=== PATIENT | female | born 1995 | race Two or more races ===

== ENCOUNTER 2025-02-12 10:06 | Emergency (ER) | payer MEDICAID, SELFPAY ==
[2025-02-12 10:07] VITALS: BMI 33.6
[2025-02-12 10:41] VITALS: BP 134/83; PULSE 80; RESP 17; TEMP 36.7; O2SAT 99; BMI 33.6
--- NOTE | 2025-02-12 10:52 | XR_ITS ---
Examination: Complete OB ultrasound, less than 14 weeks, transabdominal Date and time of exam: 02/12/2025, 12:15 PM COMPARISON: None Technique: Obstetrical ultrasound images less than 14 weeks performed via transabdominal imaging Findings: The uterus measures 12.7 x 5.8 x 6.6 cm and is anteverted. Single intrauterine is seen with a crown-rump length 0.5 cm. Normal-appearing gestational and yolk sac. heart rate: 131 bpm. Right ovary is not visualized due to overlying bowel gas. Left ovary appears normal with normal arterial flow. IMPRESSION: Single intrauterine with gestational age = 6 weeks 1 day based on crown rump length. heart rate: 131 weeks per minute. No focal abnormality
--- NOTE | 2025-02-12 10:57 | PD.EDRME ---
Rapid Medical Screening Exam RME Arrival date/time: 02/12/25 10:06 This is a 4 para 0 that comes in with complaints of vaginal bleeding pain. Patient states her last menstrual period was January 16. Patient reports that she is approximately 6 weeks . Patient started having vaginal bleeding. Patient also complains of back pain. Patient reports mild abdominal cramping. I have greeted and performed a focused initial assessment of this patient. Initial appropriate labs ordered at this time. A comprehensive ED assessment and evaluation of the patient and analysis of all test and completion of medical decision making process will be conducted by additional ED provider. Chief Complaint: Vaginal Bleeding Time Seen by Provider: 02/12/25 10:40 Vital signs: Vital Signs Temperature 98.0 F 02/12/25 10:41 Pulse Rate 80 02/12/25 10:41 Respiratory Rate 17 02/12/25 10:41 Blood Pressure 134/83 H 02/12/25 10:41 Pulse Oximetry (%) 99 02/12/25 10:41 Oxygen Delivery Method Room Air 02/12/25 10:41
[2025-02-12 11:39] LABS: Collection Type, Urine Pedi-Bag; Squamous Epithelial Cell,Urine 0 /hpf (0-5)
[2025-02-12 11:52] LABS: Bilirubin,Urine Negative (Negative); Blood,Urine Negative (Negative); Clarity,Urine Clear (Clear/Hazy); Color,Urine Colorless (Lt Yel-Yel); Culture Indicated,Urine Not Indicated; Glucose, Urine Negative (Negative); Ketones,Urine Negative (Negative); Leukocyte Esterase,Urine Negative (Negative); Nitrite,Urine Negative (Negative); Protein,Urine Negative (Neg - Trace); RBC,Urine < 1 /hpf (0-3); Specific Gravity,Urine 1.008 (1.001-1.035); Urobilinogen,Urine Negative mg/dL (0.0-1.0); WBC,Urine < 1 /hpf (0-5)
[2025-02-12 12:01] LABS: Basophils # (Auto) 0.1 Thou/mm3 (0.0-0.2); Basophils % (Auto) 0 % (0-2.5); Eosinophils # (Auto) 0.1 Thou/mm3 (0.0-0.5); Eosinophils % (Auto) 0 % (0-10); Hematocrit 40.8 % (36.0-46.0); Hemoglobin 13.6 g/dL (12.0-16.0); Immature Granulocytes % (Auto) 0 % (0-0); Immature Granulocytes Auto 0.04 Thou/mm3 (0.00-0.00); Lymphocytes # (Auto) 2.8 Thou/mm3 (1.0-4.8); Lymphocytes % (Auto) 20 % (10-50); Mean Corpuscular HGB Conc 33.3 g/dl (31.0-37.0); Mean Corpuscular Volume 87 fL (80-100); Monocytes # (Auto) 0.7 Thou/mm3 (0.0-0.8); Monocytes % (Auto) 5 % (0-12); Neutrophils # (Auto) 10.1 Thou/mm3 (1.8-7.7); Neutrophils % (Auto) 74 % (37-80); Nucleated Red Blood Cell % 0 /100 WBC (0); Platelet Count 284 Thou/mm3 (140-440); RDW Standard Deviation 43.6 fL (36.4-46.3); Red Blood Count 4.69 Miln/mm3 (4.00-5.20); White Blood Count 13.6 Thou/mm3 (3.6-11.0)
[2025-02-12 12:46] LABS: Alanine Aminotransferase 17 U/L (10-49); Albumin/Globulin Ratio 1.7 (1.2-2.2); Alkaline Phosphatase 56 U/L (46-116); Anion Gap 10 (7-16); Aspartate Amino Transferase 15 U/L (0-34); BUN/Creatinine Ratio 9 Ratio (12-20); Bilirubin,Total 0.4 mg/dL (0.3-1.2); Blood Urea Nitrogen 6 mg/dL (9-23); Calcium 9.9 mg/dL (8.3-10.6); Calcium (Corrected) 9.9 mg/dL (8.5-10.1); Carbon Dioxide 24.4 mMol/L (20.0-31.0); Chloride 104 mMol/L (98-107); Creatinine (Component) 0.7 mg/dL (0.6-1.3); Estimated Creatinine Clearance 125.6 mL/min (>60); Glucose 89 mg/dL (74-106); Osmolality,Calculated 272 (275-295); Potassium 3.7 mMol/L (3.4-5.1); Sodium 138 mMol/L (136-145); eGFR > 60 See Note
[2025-02-12 12:55] LABS: Beta HCG,Quantitative 19319 mIU/mL (<5.0)
--- NOTE | 2025-02-12 13:48 | EDNOTE_ITS ---
ED OB Contraction Preg RMI/HPI General Chief complaint: Vaginal Bleeding Stated complaint: AROUND 2MNTHS PREG W/SPOTING Time Seen by Provider: 02/12/25 10:40 Arrival date/time: 02/12/25 10:06 RME / HPI RME / HPI Narrative: 02/12/25 10:06 This is a 4 para 0 that comes in with complaints of vaginal bleeding pain. Patient states her last menstrual period was January 16. Patient reports that she is approximately 6 weeks . Patient started having vaginal bleeding. Patient also complains of back pain. Patient reports mild abdominal cramping. I have greeted and performed a focused initial assessment of this patient. In itial appropriate labs ordered at this time. A comprehensive ED assessment and evaluation of the patient and analysis of all test and completion of medical decision making process will be conducted by additional ED provider. DR. KYLE MAIN ED EVALUATION 29 year old female who is currently ~ 6 weeks gestational age, A3 presents to the ED for evaluation of vaginal spotting beginning yesterday. Accompanied by mild pelvic cramping she states is located most to the center and occasionally to the left side. Reportedly has yet to see OBGYN and has an appt scheduled for later this month. Patient reports she is taking vitamins that contain folic acid. No other associated symptoms or complaints reported. LMP 12/19/2024 Related Data Allergies Allergy/AdvReac Type Severity Reaction Status Date / Time No Known Allergies Allergy Verified 02/12/25 10:10 Review of Systems Review of Systems Narrative Review of Systems: GEN: No fever, no chills, no weight loss EYES: No discharge, no visual changes, no pain HEENT: No ear pain, no congestion, no sore throat PULM: No shortness of breath, no cough, no congestion CV: No chest pain, no dyspnea on exertion, no palpitations GI: No nausea, no vomiting, no diarrhea, + pain, no constipation : +vaginal bleeding. No frequency, no urgency, no dysuria MUSC/SKEL: No joint pain, no back pain SKIN: No rash PSYCH: No hallucinations, no depression HEME/LYMPH: No easy bleeding or bruising tendencies NEURO: No weakness, no headache Past Medical History Social History SMOKING STATUS: Never smoker ED Exam Narrative Physical exam: GENERAL APPEARANCE:? alert and oriented x 4, well-developed, well-nourished, no acute distress HEENT: normocephalic, atraumatic NECK: supple LUNGS: no respiratory distress, normal effort HEART: good peripheral perfusion ABDOMEN: non distended; no tenderness EXTREMITIES:? atraumatic NEUROLOGIC: awake; alert and oriented x4; cranial nerves II-XII grossly intact PSYCHIATRIC:? appropriate mood and affect SKIN: warm, dry, normal color; no rashes Course Quality Measures none Orders Category Date Time Status US OB <= 14 weeks fetus Stat Exams 02/12/25 10:52 Completed ABO/RH Type - Stat Lab 02/12/25 11:50 Completed Beta HCG,Quantitative Stat Lab 02/12/25 11:50 Completed CBC Stat Lab 02/12/25 11:50 Completed Comprehensive Metabolic Panel Stat Lab 02/12/25 11:50 Completed Urinalysis, C/S if Indicated Stat Lab 02/12/25 11:05 Completed Vital Signs Vital signs: Vital Signs Temperature 98.0 F 02/12/25 10:41 Pulse Rate 80 02/12/25 10:41 Respiratory Rate 17 02/12/25 10:41 Blood Pressure 134/83 H 02/12/25 10:41 Pulse Oximetry (%) 99 02/12/25 10:41 Oxygen Delivery Method Room Air 02/12/25 10:41 Pulse ox is 99% on room air which is adequate. Vaginal Bleeding MDM Narrative MDM Narrative: Syl Godoy am scribing for and in the presence of Dr. Kyle. Patient data External records reviewed:: [facility] previous records (Per EMR, no previous ED visits for review ) Clinical information provided by:: patient Social determinants that could affect healthcare access:: none Patient has the following chronic illnesses:: Previous miscarriages, A3 How is presenting disease/condition affected by chronic disease/condition?: uneffected by Evaluation data The following diagnostics were reviewed and interpreted by me:: lab results and radiology exam(s) Lab and/or radiology exams considered but not ordered:: None Interpretation Summary: Ordering Physician: Leana Melendez NP Date of Service: 02/12/25 Procedure(s): US OB <= 14 weeks fetus Accession Number(s): [id number] cc: Jose Forrest MD; Jerrod Arvizu MD; Leana Melendez NP~ Examination: Complete OB ultrasound, less than 14 weeks, transabdominal Date and time of exam: 02/12/2025, 12:15 PM COMPARISON: None Technique: Obstetrical ultrasound images less than 14 weeks performed via transabdominal imaging Findings: The uterus measures 12.7 x 5.8 x 6.6 cm and is anteverted. Single intrauterine is seen with a crown-rump length 0.5 cm. Normal-appearing gestational and yolk sac. heart rate: 131 bpm. Right ovary is not visualized due to overlying bowel gas. Left ovary appears normal with normal arterial flow. IMPRESSION: Single intrauterine with gestational age = 6 weeks 1 day based on crown rump length. heart rate: 131 weeks per minute. No focal abnormality Dictated By: Jose Forrest MD Signed By: <Electronically signed by Jose Forrest MD in OV> 02/12/25 1257 Medications / Prescriptions Medications or Prescriptions considered but not ordered:: None Medication administrations:: None Consultations Consultation(s) initiated? (list below): No Diagnosis Vaginal Bleeding Differential Diagnosis: missed , threatened , incomplete , ectopic without intrauterine and vaginal bleeding Most likely diagnosis given after review of the tests above:: Vaginal bleeding during first trimester Admission Indicated Admission indicated?: not indicated Admission Request Was there a request for admission?: No Disposition Plan Disposition Plan: Discharge Discharge Attestation Discharge Attestation: The patient and all family members were given an opportunity to ask questions and understood the discharge instructions. Discharge instructions specifically effects, indications for sooner follow up or return to the emergency department, and the expected course of current diagnosis. Patient condition: Stable Discharge Plan Plan Patient Disposition: HOME (Self Care) Prescriptions/Referrals Referrals: Jerrod Arvizu MD [Primary Care Provider] - In 1 week Problem List Clinical Impression: , Vaginal bleeding affecting early Patient/Caregiver Discharge Instructions Education Materials: First Trimester, Bleeding During Early Print Language: Sudanese Stand Alone Forms: [facility] Award Info., Patient Portal Info Letter
== END 2025-02-12 13:59 | disposition home or self-care (01) ==
PROVIDERS: Nurse Practitioner Family; Emergency Provider Emergency Medicine; PCP Family Medicine
DX: O20.9 Hemorrhage in early pregnancy, unspecified (principal); Z3A.01 Less than 8 weeks gestation of pregnancy
CPT/HCPCS: 36415; 76801; 80053; 81001; 84702; 85025; 86900; 86901; 99291

== ENCOUNTER 2025-02-22 14:10 | Outpatient (AMB) | payer MEDICAID, SELFPAY ==
[2025-02-22 14:29] VITALS: BP 131/82; PULSE 79; RESP 18; TEMP 36.4; O2SAT 98; BMI 34.4
--- NOTE | 2025-02-22 14:29 | OBCLNT_ITS ---
Vital Signs 02/22/25 14:29 Height 1.6 m Height Method Stated Weight 88.224 kg Weight Measurement Method Standing Scale BMI 34.4 BP 131/82 H Blood Pressure Source Automatic Cuff Blood Pressure Location Left Upper Arm Position Sitting Respiration 18 Pulse 79 Pulse Source Monitor Temp 97.5 F Temp Source Oral Pulse Oximetry (%) 98 Oxygen Delivery Method Room Air Allergies/Home Meds Allergies & Medications Allergies No Known Allergies Allergy (Verified 02/22/25 14:30) Medication Reconciliation vitamin with calcium no.72-iron 27 mg-folic acid 1 mg tablet ( Vitamins Plus Low Iron) 1 tab PO QDAY 90 days #90 tabs 02/22/25 [Rx] Intake Visit Data Collection New Patient or Established: Established Patient (seen at [facility] within 3 years) Reason for Visit:: care at 9 weeks 2 days gestation, cramping, vomiting, diarrhea, spotting last week Seen by Clinical Staff ONLY (RN/MA): No Territory Outside Sales Manager Required: No Do You Feel Safe at Home: Yes Authorities Contacted: N/A PCP or OBGYN visit in last 3 months: Yes Date of Last PCP or OBGYN visit: 02/12/25 Hx Now: Yes Are you currently on any form of Control: No Last menstrual period: 12/19/24 Pain Present Currently: No Pain Scale Used: Alvarez-Armstrong/Numerical Smoking Status Smoking Status: Never smoker Questionnaires Covid-19 Vaccine Questionnaire Has patient been vacinated for Covid-19 Have you been vacinated for Covid-19: No PHQ-9 PHQ-2 Over the last 2 weeks, how often have you been bothered by any of the following problems? 1. Little interest or pleasure in doing things: not at all 2. Feeling down, depressed, or hopeless: not at all Total score: 0 PHQ-9 3. Trouble falling or staying asleep, or sleeping too much: Not at all 4. Feeling tired or having little energy: Not at all 5. Poor appetite or overeating: Not at all 6. Feeling bad about yourself - or that you are a failure or have let yourself or your family down: Not at all 7. Trouble concentrating on things, such as reading the newspaper or watching television: Not at all 8. Moving or speaking so slowly that other people could have noticed? - Or the opposite - being so fidgety or restless that you have been moving around a lot more than usual: not at all 9. Thoughts that you would be better off or of hurting yourself in some way: Not at all Total score: 0 If you checked off any problems, how difficult have these problems made it for you to do your work, take care of things at home, or get along with other peopl e?: not difficult at all Source: Developed by Drs. Michael Hanson, Yin Dangelo, Nicholas Reyes and colleagues, with an educational [place] from [employer]. Depression screen completed yes Social History Living Situation History Marital Status: Lives With: Family Housing: House Tobacco History Smoking Status: Never smoker Second Hand Smoke Exposure: No Alcohol History Alcohol Intake: Never Domestic Abuse History Do You Feel Safe at Home: Yes Past Medical History Past Medical History Have you ever been diagnosed with any of the following: History of Present Illness HPI Narrative Mildred Watters, a 29-year-old at 9 weeks and 2 days gestation based on LMP of December 08, 2024, presents for care. 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 The patient reports experiencing cramping, vomiting, and diarrhea as her primary symptoms. She notes that diarrhea is a new symptom for her, occurring with certain foods and resulting in more frequent bowel movements. The patient also mentions experiencing pressure while using the restroom, which she inquired about. Additionally, she reports having hot flashes and chills, which were attributed to hormones. The patient had an episode of spotting last week, which has since resolved. She believes it may have been related to overexertion at work, as she didn't work this week. 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 She mentions the possibility of being hit in the stomach at work. The patient is currently taking vitamins and denies any other long-term medical conditions or concerns. 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 Gastrointestinal: Positive for nausea, vomiting, diarrhea, and increased frequency of bowel movements. Genitourinary: Positive for pressure during urination. OB Ultrasound OB Ultrasound Gestational sac assessment: Presence, location, size, shape: - Ultrasound (02/22/2025): - Gestational age: 8 weeks - heart rate: 165 bpm (normal) - No blood clot or complications observed OB Initial Visit OB Flowsheet OB Flowsheet Initial Weight: Not Recorded Date -?-?-?-?-?-?-?-?-?-?-?-?- EGA Weight Edema CTX Effacement BP Fundal ht Pres Dilation Effacement Station Visit Note Alb Glu FHR Mov 02/22/25 -?-?-?-?-?-?-?-?-?-?-?-?- 8w 0d 88.224 kg 131/82 OBI: Patient reports LMP of December 08, 2024, placing her at 9 weeks 2 days gestation with NIMISHA of September 25, 2025. Ultrasound performed today shows a single intrauterine measuring 8 weeks with heart rate of 165 bpm, which is within normal range. No blood clots or complications visualized on ultrasound. 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 Plan: - Continue vitamins - Order comprehensive labs - Follow-up appointment scheduled for xt week to review lab results - Provide work restriction note until e end of next week - Recommend bringing FMLA forms to next appointment for completion - Anticipate lifting work restrictions a t 15-16 weeks gestation, pending clinical status 165 Menstrual History Menstrual reliability: approximate (month known) Flow: normal Menstrual regularity: irregular Age at menarche: 14 On control pills at conception: No OB History : 3 Para: 0 Hx # Pregnancies: 0 Hx Total # of Abortions (Spontaneous & Elective): 2 # of Living Children: 0 Infection History & Risk Evaluation History of STDs: none HIV risk evaluation: low risk Hepatitis B risk evaluation: low risk Patient or partner has history of Genital Herpes: No Varicella/chicken pox status: immunized Genetic Screening & History Genetic Screening/Teratology Counseling - Includes patient, baby's father, or anyone in either family with: 1. Patient's age 35 years or older as of estimated date of delivery: No 2. Thalassemia (French, Swedish, Mediterranean, or Background); MCV less than 80: No 3. Neural Tube Defect (Meningomyelocele, Spina Bifida, or Anencephaly): No 4. Congenital Heart Defect: No 5. Down Syndrome: No 6. Abraham-Sachs (Ashkenazi Temple, Cajun, Samoan Mauritanian): No 7. Danielle Disease (Ashkenazi Temple): No 8. Familial Dysautonomia (Ashkenazi Temple): No 9. Sickle Cell Disease or Trait (): No 10. Hemophilia or other blood disorders: No 11. Muscular Dystrophy: No 12. Cystic Fibrosis: No 13. [place]'s Chorea: No 14. Mental Retardation/Autism: No 15. Other inherited genetic or chromosomal disorder: No 16. Maternal Metabolic Disorder (EG,TYPE 1 Diabetes, PKU): No 17. Patient or baby's father had a child with defects not listed above: No 18. Recurrent loss or a stillbirth: No 19. Medications (including supplements, vitamins, herbs or otc drugs)/illicit/recreational drugs/alcohol since last menstrual period: No 20. Any other: No Infection History 1. Live with someone with TB or exposed to TB: No 2. Rash or viral illness since last menstrual period: No 3. Hepatitis B,C: No Other (see comments) Source: [employer] Exam General Limitations: no limitations General Appearance: alert, in no apparent distress, comfortable, cooperative, healthy appearing, well developed and well groomed Head Head exam: atraumatic, normocephalic and normal inspection Chest Chest inspection: Present normal inspection and symmetric chest wall rise Abdominal Abdominal exam: Present soft and normal bowel sounds Psych Psychiatric exam: Present normal affect and normal mood Skin Skin exam: Present warm, dry, intact and normal color Assessment & Plan Diagnosis / Problem List (1) care for patient with recurrent loss: Status: Acute (2) Supervision of high risk , unspecified, first trimester: Status: Acute Plan Mildred Watters, 29-year-old at 9 weeks 2 days gestation by LMP (8 weeks by ultrasound), presents for care with nausea, vomiting, diarrhea, and recent spotting. Intrauterine Assessment: Patient reports LMP of December 08, 2024, placing her at 9 weeks 2 days gestation with NIMISHA of September 25, 2025. Ultrasound performed today shows a single intrauterine measuring 8 weeks with heart rate of 165 bpm, which is within normal range. No blood clots or complications visualized on ultrasound. 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 Plan: - Continue vitamins - Order comprehensive labs - Follow-up appointment scheduled for next week to review lab results - Provide work restriction note until the end of next week - Recommend bringing FMLA forms to next appointment for completion - Anticipate lifting work restrictions at 15-16 weeks gestation, pending clinical status -related symptoms Assessment: Patient reports nausea, vomiting, diarrhea, and frequent bowel movements. She also experienced spotting last week, which has since resolved. Patient mentions cramping, hot flashes, and chills, which are consistent with normal symptoms at this gestational age. 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 She reports potential for abdominal trauma at work and finds the job stressful. Plan: - Provide work restriction note until the end of next week - Discuss implementing intermittent restrictions and potential for full-time restrictions as progresses - Plan to complete FMLA forms at next visit to allow for job protection in case of -related absences Educated the patient on the importance of care, including taking vitamins with folic acid, iron, and calcium. Emphasized avoiding alcohol, smoking, and certain medications. Discussed common symptoms like nausea and fatigue, advising small, frequent meals and adequate hydration. Explained the need for regular check-ups and recommended safe physical activities. Instructed on signs of complications, such as severe cramping or bleeding, and when to seek immediate medical attention. Highlighted the importance of a balanced diet and avoiding high-risk foods. Encouraged open communication about any concerns or questions. Encouraged keeping up with all appointments and tests Office Procedures OB Clinic LOC & Office Proc's Nursing/Assessment Patient Status: Established Patient OB Clinic Nursing Assessment: BP Monitoring, Medication Reconciliation, Update PMH in EMR and Vital Signs OB Clinic Coordination of Care: Consent,records obtained, informed consent, Education Simp Pt/Fam, Lab and Imaging orders and Staff clarify orders Established Patient Charge Established Patient Point Assignment: 90 Bedside Ultrasounds US Transabdominal <14 weeks at bedside: Yes
== END 2025-02-22 14:54 | disposition home or self-care (01) ==
LOC: HODSOBC 14:10
PROVIDERS: PCP Family Medicine; Referring Provider Family Medicine; Supervising Provider Obstetrics & Gynecology; Visit Provider Obstetrics & Gynecology
DX: O09.291 Supervision of pregnancy with other poor reproductive or obstetric history, first trimester (principal); O26.21 Pregnancy care for patient with recurrent pregnancy loss, first trimester; Z3A.08 8 weeks gestation of pregnancy
CPT/HCPCS: 76801; 99213; G0463

== ENCOUNTER 2025-03-22 10:16 | Outpatient (AMB) | payer MEDICAID, SELFPAY ==
--- NOTE | 2025-03-22 10:39 | OBCLNT_ITS ---
Vital Signs 03/22/25 10:41 Height 1.6 m Height Method Stated Weight 90.775 kg Weight Measurement Method Standing Scale BMI 35.4 BP 130/73 Blood Pressure Source Automatic Cuff Blood Pressure Location Left Upper Arm Position Sitting Respiration 18 Pulse 90 Pulse Source Monitor Temp 97.2 F Temp Source Oral Pulse Oximetry (%) 98 Oxygen Delivery Method Room Air Allergies/Home Meds Allergies & Medications Allergies No Known Allergies Allergy (Verified 03/22/25 10:42) Medication Reconciliation vitamin with calcium no.72-iron 27 mg-folic acid 1 mg tablet ( Vitamins Plus Low Iron) 1 tab PO QDAY 90 days #90 tabs 02/22/25 [Rx Confirmed 03/22/25] Intake Visit Data Collection New Patient or Established: Established Patient (seen at [facility] within 3 years) Reason for Visit:: - care visit at 12 weeks and 0 days gestation - History of 2 recent losses - Headaches - Pain when walking a lot Seen by Clinical Staff ONLY (RN/MA): No Light Cleaner Required: No Do You Feel Safe at Home: Yes Authorities Contacted: N/A PCP or OBGYN visit in last 3 months: Yes Date of Last PCP or OBGYN visit: 02/22/25 Hx Now: Yes Pain Present Currently: No Pain Scale Used: Alvarez-Armstrong/Numerical Pain scale:: 0 Smoking Status Smoking Status: Never smoker Questionnaires Covid-19 Vaccine Questionnaire Has patient been vacinated for Covid-19 Have you been vacinated for Covid-19: Yes PHQ-9 PHQ-2 Over the last 2 weeks, how often have you been bothered by any of the following problems? 1. Little interest or pleasure in doing things: not at all 2. Feeling down, depressed, or hopeless: not at all Total score: 0 PHQ-9 3. Trouble falling or staying asleep, or sleeping too much: Not at all 4. Feeling tired or having little energy: Not at all 5. Poor appetite or overeating: Not at all 6. Feeling bad about yourself - or that you are a failure or have let yourself or your family down: Not at all 7. Trouble concentrating on things, such as reading the newspaper or watching television: Not at all 8. Moving or speaking so slowly that other people could have noticed? - Or the opposite - being so fidgety or restless that you have been moving around a lot more than usual: not at all 9. Thoughts that you would be better off or of hurting yourself in some way: Not at all Total score: 0 If you checked off any problems, how difficult have these problems made it for you to do your work, take care of things at home, or get along with other people?: not difficult at all Source: Developed by Drs. Michael Hanson, Yin Dangelo, Nicholas Reyes and colleagues, with an educational [place]ia from [employer]. Depression screen completed yes Social History Living Situation History Lives With: Family Housing: House Tobacco History Smoking Status: Never smoker Second Hand Smoke Exposure: No Alcohol History Alcohol Intake: Never Domestic Abuse History Do You Feel Safe at Home: Yes History of Present Illness HPI Narrative - Mildred Watters is a 29-year-old at 12 weeks gestation with a history of 2 recent losses, presenting for care. 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 Ultrasound performed today shows a single intrauterine measuring 8 weeks with heart rate of 165 bpm, which is within normal range. No blood clots or complications visualized on ult rasound. 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 Plan: - Continue vitamins - Order comprehensive labs - Follow-up appointment scheduled for ne xt week to review lab results - Provide work restriction note until th e end of next week - Recommend bringing FMLA forms to next appointment for completion - Anticipate lifting work restrictions a t 15-16 weeks gestation, pending clinical status 03/22/25 -?-?-?-?-?-?-?-?-?-?-?-?- 12w 0d 90.775 kg 130/73 at 12 weeks gestation, presents for routine care. Reports headaches and pelvic pain with prolonged walking, resolves with rest. History of 2 recent losses. Bedside ultrasound confirms viable IUP measuring 13 weeks. Genetic screen inadequate due to early gestation. 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 return in 4 weeks precautions reviewed NIMISHA Calculator Estimated Delivery Date Method Current WG Current Estimate 10/04/25 Ultrasound #1 12w 3d Other Estimates 09/25/25 LMP (Certain) 13w 5d Exam General General Appearance: alert, in no apparent distress and healthy appearing Head Head exam: atraumatic Neck Neck exam: Present normal inspection and trachea midline Chest Chest inspection: Present normal inspection and symmetric chest wall rise External exam: Present normal external exam; Absent tenderness Neuro Neurological exam: Present oriented X3 Psych Psychiatric exam: Present normal affect and normal mood Office Procedures OB Clinic LOC & Office Proc's Nursing/Assessment Patient Status: Established Patient OB Clinic Nursing Assessment: Medication Reconciliation, Update PMH in EMR and Vital Signs OB Clinic Coordination of Care: Education Complex Pt/Fam, Consent,records obtained, informed consent, Lab and Imaging orders and Staff clarify orders Special Needs: Heart tones Established Patient Charge Established Patient Point Assignment: 110 Established Patient Point Charge: EP Level 3 (80-115) Assessment & Plan Diagnosis / Problem List (1) care for patient with recurrent loss: Status: Acute (2) Supervision of high risk , unspecified, first trimester: Status: Acute Plan Problem List - - Recurrent loss - Headaches - Round ligament pain Assessment - Intrauterine at 12 weeks 0 days gestation, measuring 13 weeks by ultrasound - with history of 2 recent losses - Normal heart rate on bedside ultrasound - labs within normal limits - Genetic screening panel reported as inadequate DNA quantity due to early gestation - Patient reports headaches - Patient experiences pelvic pain with prolonged walking - 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 Advised avoiding heavy lifting and getting adequate rest. Instructed to contact the office immediately if any signs occur. Discussed the importance of a balanced diet rich in folic a ricardo, iron, and calcium, and provided a list of recommended and to-avoid foods. Emphasized avoiding high-sugar foods to reduce gestational diabetes risk. Encouraged hydration and frequent, small meals for energy..
[2025-03-22 10:41] VITALS: BP 130/73; PULSE 90; RESP 18; TEMP 36.2; O2SAT 98; BMI 35.4
== END 2025-03-22 11:12 | disposition home or self-care (01) ==
LOC: HODSOBC 10:16
PROVIDERS: PCP Family Medicine; Referring Provider Family Medicine; Supervising Provider Obstetrics & Gynecology; Visit Provider Obstetrics & Gynecology
DX: O09.291 Supervision of pregnancy with other poor reproductive or obstetric history, first trimester (principal); O26.21 Pregnancy care for patient with recurrent pregnancy loss, first trimester; O09.891 Supervision of other high risk pregnancies, first trimester; Z3A.12 12 weeks gestation of pregnancy; R51.9 Headache, unspecified; R10.2 Pelvic and perineal pain
CPT/HCPCS: 99213; G0463

== ENCOUNTER 2025-04-22 09:46 | Outpatient (AMB) | payer BC, SELFPAY ==
[2025-04-22 09:56] VITALS: BP 135/83; PULSE 80; RESP 17; TEMP 36.9; O2SAT 97; BMI 37.0
--- NOTE | 2025-04-22 09:56 | AMB.OBVISIT ---
Vital Signs 04/22/25 09:56 Height 1.6 m Height Method Measured Weight 94.801 kg Weight Measurement Method Standing Scale BMI 37.0 BP 135/83 H Blood Pressure Source Automatic Cuff Blood Pressure Location Right Upper Arm Position Sitting Respiration 17 Pulse 80 Pulse Source Monitor Temp 98.4 F Temp Source Temporal Artery Scan Pulse Oximetry (%) 97 Oxygen Delivery Method Room Air Allergies/Home Meds Allergies & Medications Allergies No Known Allergies Allergy (Verified 05/23/25 13:15) Medication Reconciliation vitamins with calcium no.72-iron 27 mg-folic acid 1 mg tablet ( Vitamins Plus Low Iron) 1 tab PO QDAY 90 days #90 tabs 02/22/25 [Rx Confirmed 05/23/25] Intake Visit Data Collection New Patient or Established: Established Patient (seen at [facility] within 3 years) Reason for Visit:: OBC Seen by Clinical Staff ONLY (RN/MA): No Electric Stop Installer Required: No Do You Feel Safe at Home: Yes Authorities Contacted: N/A PCP or OBGYN visit in last 3 months: Yes Date of Last PCP or OBGYN visit: 04/22/25 Hx Now: Yes Are you currently on any form of Control: No Pain Present Currently: No Pain Scale Used: Alvarez-Armstrong/Numerical Pain scale:: 0 Smoking Status Smoking Status: Never smoker Questionnaires Covid-19 Vaccine Questionnaire Has patient been vacinated for Covid-19 Have you been vacinated for Covid-19: No PHQ-9 PHQ-2 Over the last 2 weeks, how often have you been bothered by any of the following problems? 1. Little interest or pleasure in doing things: not at all 2. Feeling down, depressed, or hopeless: not at all Total score: 0 PHQ-9 3. Trouble falling or staying asleep, or sleeping too much: Not at all 4. Feeling tired or having little energy: Not at all 5. Poor appetite or overeating: Not at all 6. Feeling bad about yourself - or that you are a failure or have let yourself or your family down: Not at all 7. Trouble concentrating on things, such as reading the newspaper or watching television: Not at all 8. Moving or speaking so slowly that other people could have noticed? - Or the opposite - being so fidgety or restless that you have been moving around a lot more than usual: not at all 9. Thoughts that you would be better off or of hurting yourself in some way: Not at all Total score: 0 Source: Developed by Drs. Michael Hanson, Yin Dangelo, Nicholas Reyes and colleagues, with an educational virginia from [employer]. Depression screen completed yes Social History Living Situation History Lives With: Family Housing: House Tobacco History Smoking Status: Never smoker Second Hand Smoke Exposure: No Alcohol History Alcohol Intake: Never Domestic Abuse History Do You Feel Safe at Home: Yes Care OB Visit Log OB Flowsheet Initial Weight: Not Recorded Date <del>?</del> EGA Weight BP Alb Glu CTX Pres Fundal ht FHR Mov Dilation Station Effacement Hx Notes Visit Note 02/22/25 <del>?</del> 8w 0d 88.224 kg 131/82 165 OBI: Patient reports LMP of December 08, 2024, placing her at 9 weeks 2 days gestation with NIMISHA of September 25, 2025. Ultrasound performed today shows a single intrauterine measuring 8 weeks with heart rate of 165 bpm, which is within normal range. No blood clots or complications visualized on ultrasound. 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 Plan: - Continue vitamins - Order comprehensive labs - Follow-up appointment scheduled for next week to review lab results - Provide work restriction note until the end of next week - Recommend bringing FMLA forms to next appointment for completion - Anticipate lifting work restrictions at 15-16 weeks gestation, pending clinical status 03/22/25 <del>?</del> 12w 0d 90.775 kg 130/73 at 12 weeks gestation, presents for routine care. Reports headaches and pelvic pain with prolonged walking, resolves with rest. History of 2 recent losses. Bedside ultrasound confirms viable IUP measuring 13 weeks. Genetic screen inadequate due to early gestation. 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 Reports improved N/V, ongoing diarrhea likely viral or food-related, and mild L-sided back pain with urination. NIPT normal, fraction 14%, female fetus. US today reassuring, Plan: RTC in 4w, awaiting [facility] US scheduling, disability extension form provided. Symptomatic management continues. NIMISHA Calculator Estimated Delivery Date Method Current WG Current Estimate 10/04/25 Ultrasound #1 21w 5d Other Estimates 09/25/25 LMP (Certain) 23w 0d Office Procedures OB Clinic LOC & Office Proc's Nursing/Assessment Patient Status: Established Patient OB Clinic Nursing Assessment: Medication Reconciliation, Update PMH in EMR and Vital Signs OB Clinic Coordination of Care: Complex Care and Chronic Disease 1-5, Consent,records obtained, informed consent, Lab and Imaging orders and Staff clarify orders Special Needs: Heart tones Established Patient Charge Established Patient Point Assignment: 115 Established Patient Point Charge: EP Level 3 (80-115) Assessment & Plan Diagnosis / Problem List (1) care for patient with recurrent loss: Status: Acute (2) Supervision of high risk , unspecified, first trimester: Status: Acute
== END 2025-04-22 11:01 | disposition home or self-care (01) ==
LOC: HODSOBC 09:46
PROVIDERS: PCP Obstetrics & Gynecology; Referring Provider Obstetrics & Gynecology; Supervising Provider Obstetrics & Gynecology; Visit Provider Obstetrics & Gynecology
DX: O09.292 Supervision of pregnancy with other poor reproductive or obstetric history, second trimester (principal); O26.22 Pregnancy care for patient with recurrent pregnancy loss, second trimester; O09.892 Supervision of other high risk pregnancies, second trimester; O99.891 Other specified diseases and conditions complicating pregnancy; R19.7 Diarrhea, unspecified; O21.9 Vomiting of pregnancy, unspecified; Z3A.16 16 weeks gestation of pregnancy
CPT/HCPCS: 99213; G0463

== ENCOUNTER 2025-05-23 12:45 | Observation (INO) | payer MEDICAID, SELFPAY ==
[2025-05-23] VITALS (40 sets, daily range): BP systolic 139–192; BP diastolic 70–99; PULSE 76–108; RESP 20–100; TEMP 36.9; O2SAT 98–100; BMI 38.7
[2025-05-23 14:02] LABS: Collection Type, Urine Clean Catch; WBC,Urine 0 /hpf (0-5)
[2025-05-23 14:09] LABS: Basophils # (Auto) 0.0 Thou/mm3 (0.0-0.2); Basophils % (Auto) 0 % (0-2.5); Eosinophils # (Auto) 0.0 Thou/mm3 (0.0-0.5); Eosinophils % (Auto) 0 % (0-10); Hematocrit 37.0 % (36.0-46.0); Hemoglobin 12.7 g/dL (12.0-16.0); Immature Granulocytes Auto 0.09 Thou/mm3 (0.00-0.00); Lymphocytes # (Auto) 2.3 Thou/mm3 (1.0-4.8); Lymphocytes % (Auto) 16 % (10-50); Mean Corpuscular HGB Conc 34.3 g/dl (31.0-37.0); Mean Corpuscular Hemoglobin 30.2 pg (25.0-35.0); Mean Corpuscular Volume 88 fL (80-100); Monocytes # (Auto) 0.7 Thou/mm3 (0.0-0.8); Monocytes % (Auto) 5 % (0-12); Neutrophils # (Auto) 11.7 Thou/mm3 (1.8-7.7); Neutrophils % (Auto) 79 % (37-80); Nucleated Red Blood Cell # 0.00 Thou/mm3 (0.00-0.00); Nucleated Red Blood Cell % 0 /100 WBC (0); Platelet Count 300 Thou/mm3 (140-440); RDW Standard Deviation 43.2 fL (36.4-46.3); Red Blood Count 4.20 Miln/mm3 (4.00-5.20); White Blood Count 14.9 Thou/mm3 (3.6-11.0)
[2025-05-23 14:19] LABS: Bilirubin,Urine Negative (Negative); Blood,Urine Trace (Negative); Clarity,Urine Clear (Clear/Hazy); Color,Urine Lt-Yellow (Lt Yel-Yel); Glucose, Urine 4+ (Negative); Ketones,Urine Negative (Negative); Leukocyte Esterase,Urine Negative (Negative); Nitrite,Urine Negative (Negative); PH,Urine 6.5 (5.0-7.0); Protein,Urine Negative (Neg - Trace); RBC,Urine 2 /hpf (0-3); Specific Gravity,Urine 1.020 (1.001-1.035); Squamous Epithelial Cell,Urine < 1 /hpf (0-5); Urobilinogen,Urine Negative mg/dL (0.0-1.0)
[2025-05-23 14:23] LABS: Alanine Aminotransferase 12 U/L (10-49); Albumin, Serum 4.5 gm/dL (3.5-5.0); Albumin/Globulin Ratio 1.5 (1.2-2.2); Alkaline Phosphatase 58 U/L (46-116); Anion Gap 11 (7-16); Aspartate Amino Transferase 14 U/L (0-34); BUN/Creatinine Ratio 12 Ratio (12-20); Bilirubin,Total 0.2 mg/dL (0.3-1.2); Blood Urea Nitrogen 7 mg/dL (9-23); Calcium 9.8 mg/dL (8.3-10.6); Calcium (Corrected) 9.8 mg/dL (8.5-10.1); Carbon Dioxide 24.6 mMol/L (20.0-31.0); Chloride 104 mMol/L (98-107); Creatinine (Component) 0.6 mg/dL (0.6-1.3); Estimated Creatinine Clearance 158.2 mL/min (>60); Globulin 3.0 gm/dL (2.3-3.5); Glucose 96 mg/dL (74-106); LDH (Lactate Dehydrogenase) 141 U/L (120-246); Osmolality,Calculated 277 (275-295); Potassium 3.9 mMol/L (3.4-5.1); Sodium 140 mMol/L (136-145); Total Protein 7.5 gm/dL (5.7-8.2); Uric Acid 2.6 mg/dL (3.1-7.8); eGFR > 60 See Note
[2025-05-23 14:54] LABS: Fibrinogen 538 mg/dL (175-375); INR 0.9 (0.9-1.3); Partial Thromboplastin Time 27.9 Seconds (22.0-36.0); Prothrombin Time 9.8 Seconds (9.0-12.2)
[2025-05-23 15:11] LABS: Creatinine,Random Urine 66 mg/dL (30-125); Protein Total, Random Urine 14 mg/dL (1-14)
--- NOTE | 2025-05-23 15:19 | ESPR_ITS ---
Documentation for date of: 05/23/25 OB Labor Progress Note Pelvic Exam Amniotic membrane status: Intact Assessment and Plan Comments: Triage Note Mildred is a 29yo with SIUP at 20+wk presenting to L&D for dizziness and swelling in her feet. She drove her MIL to [place] this morning at 0500 for PET scan (she is battling Stage IV cervical cancer). She went home and laid down, started to feel the room spinning around her . Continued to feel dizzy as she was moving about. Also noticed increased swelling of her feet after the morning trip, and was concerned with both of these things going on. She notes no painful/regular ctx, no vaginal bleeding, no lof. Normal movement. She denies headache, vision changes and RUQ pain. Current : Uncomplicated thus far. Sees Dr. Appiah for PN care. Notably, all prior bp's on the chart are 130's/80's. ROS negative other than what was described above. Initially a few severe range bp's which settled down to mostly mild range bp's, pulse 80's, afebrile General: well developed, well nourished, no acute distress, conversant Cardiac: normal heart rate Lungs: breathing without distress Abdomen: soft, gravid, non-tender, no rebound or guarding Extremities: no appreciable edema of BLE Doptones: +FHT Labs: Hgb 12.7 Plt 300 serum creat 0.6 uric acid 2.6 AST/ALT wnl urine prot:creat 0.21 Assessment: Mildred is a 29yo with SIUP at 20+wk with likely first episode of vertigo. Dizziness resolved during her time in triage. New mild range bp's, though prior trend 130's/80's, so she likely has an element of pre-existing HTN with some exacerbation with anxiety/discomfort/stress. No evidence of pre- eclampsia at this time. Benign exam. Reassuring status. Plan: -Discussed findings and provided reassurance -Follow up with Dr. Appiah this coming Friday as scheduled for bp re-check. We discussed purchasing a bp cuff and taking twice daily, keeping log and bringing this to the visit with Dr. Appiah. Discussed she may need to be started on a bp med and possibly even aspirin at that time if she continues to have mild range bp's. Discussed to return to L&D if she has bp 160's/110's taken 20 minutes apart. Also return for persistent MARKS or any other concerning sx. -Avoid tilting head and bending over which can exacerbate vertigo -Advised to take it easy this week, maybe have someone else drive MIL to her cancer follow up visits to reduce a bit of stress -For leg swelling (not present on exam): reduce salt in diet, elevate legs when resting, +/- compression stockings -Safe for discharge home at this time Malinda Munoz MD
== END 2025-05-23 15:22 | disposition home or self-care (01) ==
PROVIDERS: Admitting Provider Obstetrics & Gynecology; Visit Provider Obstetrics & Gynecology
DX: O26.892 Other specified pregnancy related conditions, second trimester (principal); Z3A.20 20 weeks gestation of pregnancy; R42 Dizziness and giddiness
CPT/HCPCS: 36415; 59899; 80053; 81001; 82570; 83615; 84156; 84550; 85025; 85384; 85610; 85730; 87086; G0378

== ENCOUNTER 2025-06-14 13:27 | Outpatient (AMB) | payer MEDICAID, SELFPAY ==
[2025-06-14 14:32] VITALS: BP 130/82; PULSE 71; RESP 17; TEMP 36.9; O2SAT 98; BMI 38.8
--- NOTE | 2025-06-14 14:32 | OBCLNT_ITS ---
Vital Signs 06/14/25 14:32 Height 1.6 m Height Method Measured Weight 99.45 kg Weight Measurement Method Standing Scale BMI 38.8 BP 130/82 Blood Pressure Source Automatic Cuff Blood Pressure Location Right Upper Arm Position Sitting Respiration 17 Pulse 71 Pulse Source Monitor Temp 98.4 F Temp Source Temporal Artery Scan Pulse Oximetry (%) 98 Oxygen Delivery Method Room Air Allergies/Home Meds Allergies & Medications Allergies No Known Allergies Allergy (Verified 07/06/25 09:34) Intake Visit Data Collection New Patient or Established: Established Patient (seen at [facility] within 3 years) Reason for Visit:: OBC Consent obtained for Telemed Visit: No Seen by Clinical Staff ONLY (RN/MA): No Flow Worker Required: No Do You Feel Safe at Home: Yes Authorities Contacted: N/A PCP or OBGYN visit in last 3 months: Yes Date of Last PCP or OBGYN visit: 05/23/25 Hx Now: Yes Are you currently on any form of Control: No Pain Present Currently: No Pain Scale Used: Alvarez-Armstrong/Numerical Pain scale:: 0 Smoking Status Smoking Status: Never smoker Questionnaires Covid-19 Vaccine Questionnaire Has patient been vacinated for Covid-19 Have you been vacinated for Covid-19: No PHQ-9 PHQ-2 Over the last 2 weeks, how often have you been bothered by any of the following problems? 1. Little interest or pleasure in doing things: not at all PHQ-9 8. Moving or speaking so slowly that other people could have noticed? - Or the opposite - being so fidgety or restless that you have been moving around a lot more than usual: not at all Source: Developed by Drs. Michael Hanson, Yin Dangelo, Nicholas Reyes and colleagues, with an educational virginia from [employer]. Social History Living Situation History Lives With: Family Housing: House Tobacco History Smoking Status: Never smoker Second Hand Smoke Exposure: No Alcohol History Alcohol Intake: Never Domestic Abuse History Do You Feel Safe at Home: Yes Care OB Visit Log OB Flowsheet Initial Weight: Not Recorded Date -?-?-?-?-?-?-?-?-?-?-?-?- EGA Weight BP Alb Glu CTX Pres Fundal ht FHR Mov Dilation Station Effacement Hx Notes Visit Note 02/22/25 -?-?-?-?-?-?-?-?-?-?-?-?- 8w 0d 88.224 kg 131/82 165 OBI: Patient reports LMP of December 08, 2024, placing her at 9 weeks 2 days gestation with NIMISHA of September 25, 2025. Ultrasound performed today shows a single intrauterine measuring 8 weeks with heart rate of 165 bpm, which is within normal range. No blood clots or complications visualized on ultrasound. 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 Plan: - Continue vitamins - Order comprehensive labs - Follow-up appointment scheduled for ne xt week to review lab results - Provide work restriction note until th e end of next week - Recommend bringing FMLA forms to next appointment for completion - Anticipate lifting work restrictions a t 15-16 weeks gestation, pending clinical status 03/22/25 -?-?-?-?-?-?-?-?-?-?-?-?- 12w 0d 90.775 kg 130/73 at 12 weeks gestation, presents for routine care. Reports headaches and pelvic pain with prolonged walking, resolves with rest. History of 2 recent losses. Bedside ultrasound confirms viable IUP measuring 13 weeks. Genetic screen inadequate due to early gestation. 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 Reports improved N/V, ongoing diarrhea likely viral or food-related, and mild L-sided back pain with urination. NIPT normal, fraction 14%, female fetus. US today reassuring, Plan: RTC in 4w, awaiting [facility] US scheduling, disability extension form provided. Symptomatic management continues. 06/14/25 -?-?-?-?-?-?-?-?-?-?-?-?- 24w 0d 99.45 kg 130/82 absent unknown 135 active No contractions, LOF, VB and reports good FM. Denies MARKS, VC, and epigastric pain. - Patient reports: - Some swelling (unspecified location) - Blood pressure readings at home up t o 140/85 - No headaches or nausea - Active movement - Vaginal discharge without spotting - Recent history of loose motions (resol logan) - Blood glucose: - Patient has been self-monitoring - Reports levels between 90-90 mg/dL a fter eating - One instance of 200 mg/dL after cons uming bun noodles - Resolved with walking before bedti me - Denies any other episodes of elevated blood glucose - Order 24-hour urine test - Perform A1c test instead of glucose sc reening drink - Continue monitoring blood pressure at home; if above 160/100, patient to go to hospital - Avoid starchy foods to manage blood gl ucose levels - Extend disability paperwork 07/06/25 -?-?-?-?-?-?-?-?-?-?-?-?- 27w 1d 99.507 kg 147/86 absent unknown 149 active 29-year-old at 27 weeks and 1 day gestation presenting with gestational hypertension, evidenced by elevated blood pressure of 147/86. 24-hour urine protein is elevated at 425, suggesting possible preeclampsia. Patient reports occasional visual disturbances ( seeing spots ) but denies right-sided abdominal pain. Hemoglobin A1c is 5.7, which is within normal range. TSH is 2.2. Patient also notes back pain, likely related to . Multiple skin tags noted on neck, attributed to - related hormonal changes. - Star t labetalol for elevated blood pressure - Follow up in 1 week for blood pressure check - Restrict sodium intake; patient provid ed with low-sodium diet printout - Continue monitoring for preeclampsia s ymptoms - Consider delivery timing based on bloo d pressure control (37-38 weeks if controlled, potentially earlier if difficult to control) - Minimum gestational age for delivery s et at 34 weeks due to lung maturity - Medical Technicians referral for skin tag re moval to be considered NIMISHA Calculator Estimated Delivery Date Method Current WG Current Estimate 10/04/25 Ultrasound #1 28w 0d Other Estimates 09/25/25 LMP (Certain) 29w 2d Office Procedures OB Clinic LOC & Office Proc's Nursing/Assessment Patient Status: Established Patient OB Clinic Nursing Assessment: Medication Reconciliation, Update PMH in EMR and Vital Signs OB Clinic Coordination of Care: Complex Care and Chronic Disease 1-5, Consent,records obtained, informed consent, Education Simp Pt/Fam and Re sults/Orders obtained Special Needs: Heart tones Established Patient Charge Established Patient Point Assignment: 110 Established Patient Point Charge: EP Level 3 (80-115) Assessment & Plan Diagnosis / Problem List (1) Gestational hypertension: Status: Acute (2) care for patient with recurrent loss: Status: Acute
== END 2025-06-14 15:27 | disposition home or self-care (01) ==
LOC: HODSOBC 13:27
PROVIDERS: Supervising Provider Obstetrics & Gynecology; Visit Provider Obstetrics & Gynecology
DX: O09.892 Supervision of other high risk pregnancies, second trimester (principal); O13.2 Gestational [pregnancy-induced] hypertension without significant proteinuria, second trimester; O09.292 Supervision of pregnancy with other poor reproductive or obstetric history, second trimester; O26.22 Pregnancy care for patient with recurrent pregnancy loss, second trimester; Z3A.24 24 weeks gestation of pregnancy
CPT/HCPCS: 99213; G0463

== ENCOUNTER 2025-07-06 09:23 | Outpatient (AMB) | payer MEDICAID, SELFPAY ==
--- NOTE | 2025-07-06 09:34 | AMB.OBVISIT ---
Vital Signs 07/06/25 09:43 Height 1.6 m Height Method Stated Weight 99.507 kg Weight Measurement Method Standing Scale BMI 38.8 BP 147/86 H Blood Pressure Source Automatic Cuff Blood Pressure Location Left Upper Arm Position Sitting Respiration 16 Pulse 91 Pulse Source Monitor Temp 97.2 F Temp Source Oral Pulse Oximetry (%) 98 Oxygen Delivery Method Room Air Allergies/Home Meds Allergies & Medications Allergies No Known Allergies Allergy (Verified 07/06/25 09:34) Medication Reconciliation vitamins with calcium no.72-iron 27 mg-folic acid 1 mg tablet ( Vitamins Plus Low Iron) 1 tab PO QDAY 90 days #90 tabs 02/22/25 [Rx Confirmed 07/06/25] labetalol 200 mg tablet 200 mg PO BID 30 days #60 tabs 07/06/25 [Rx] Intake Visit Data Collection New Patient or Established: Established Patient (seen at [facility] within 3 years) Reason for Visit:: OBC Seen by Clinical Staff ONLY (RN/MA): No 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 1. Little interest or pleasure in doing things: not at all 2. Feeling down, depressed, or hopeless: not at all Total score: 0 PHQ-9 3. Trouble falling or staying asleep, or sleeping too much: Not at all 4. Feeling tired or having little energy: Not at all 5. Poor appetite or overeating: Not at all 6. Feeling bad about yourself - or that you are a failure or have let yourself or your family down: Not at all 7. Trouble concentrating on things, such as reading the newspaper or watching television: Not at all 8. Moving or speaking so slowly that other people could have noticed? - Or the opposite - being so fidgety or restless that you have been moving around a lot more than usual: not at all 9. Thoughts that you would be better off or of hurting yourself in some way: Not at all Total score: 0 If you checked off any problems, how difficult have these problems made it for you to do your work, take care of things at home, or get along with other people?: not difficult at all Source: Developed by Drs. Michael Hanson, Yin Dangelo, Nicholas Reyes and colleagues, with an educational virginia from [employer]. Depression screen completed yes Social History Living Situation History Lives With: Family Housing: House Tobacco History Smoking Status: Never smoker Second Hand Smoke Exposure: No Alcohol History Alcohol Intake: Never Domestic Abuse History Do You Feel Safe at Home: Yes Care OB Visit Log OB Flowsheet Initial Weight: Not Recorded Date <del>?</del> EGA Weight BP Alb Glu CTX Pres Fundal ht FHR Mov Dilation Station Effacement Hx Notes Visit Note 02/22/25 <del>?</del> 8w 0d 88.224 kg 131/82 165 OBI: Patient reports LMP of December 08, 2024, placing her at 9 weeks 2 days gestation with NIMISHA of September 25, 2025. Ultrasound performed today shows a single intrauterine measuring 8 weeks with heart rate of 165 bpm, which is within normal range. No blood clots or complications visualized on ultrasound. 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 Plan: - Continue vitamins - Order comprehensive labs - Follow-up appointment scheduled for next week to review lab results - Provide work restriction note until the end of next week - Recommend bringing FMLA forms to next appointment for completion - Anticipate lifting work restrictions at 15-16 weeks gestation, pending clinical status 03/22/25 <del>?</del> 12w 0d 90.775 kg 130/73 at 12 weeks gestation, presents for routine care. Reports headaches and pelvic pain with prolonged walking, resolves with rest. History of 2 recent losses. Bedside ultrasound confirms viable IUP measuring 13 weeks. Genetic screen inadequate due to early gestation. 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 Reports improved N/V, ongoing diarrhea likely viral or food-related, and mild L-sided back pain with urination. NIPT normal, fraction 14%, female fetus. US today reassuring, Plan: RTC in 4w, awaiting M US scheduling, disability extension form provided. Symptomatic management continues. 07/06/25 <del>?</del> 27w 1d 99.507 kg 147/86 absent unknown 149 active 29-year-old at 27 weeks and 1 day gestation presenting with gestational hypertension, evidenced by elevated blood pressure of 147/86. 24-hour urine protein is elevated at 425, suggesting possible preeclampsia. Patient reports occasional visual disturbances ( seeing spots ) but denies right-sided abdominal pain. Hemoglobin A1c is 5.7, which is within normal range. TSH is 2.2. Patient also notes back pain, likely related to . Multiple skin tags noted on neck, attributed to -related hormonal changes. - Start labetalol for elevated blood pressure - Follow up in 1 week for blood pressure check - Restrict sodium intake; patient provided with low-sodium diet printout - Continue monitoring for preeclampsia symptoms - Consider delivery timing based on blood pressure control (37-38 weeks if controlled, potentially earlier if difficult to control) - Minimum gestational age for delivery set at 34 weeks due to lung maturity - Safety Compliance Specialist referral for skin tag removal to be considered NIMISHA Calculator Estimated Delivery Date Method Current WG Current Estimate 10/04/25 Ultrasound #1 27w 1d Other Estimates 09/25/25 LMP (Certain) 28w 3d Office Procedures OB Clinic LOC & Office Proc's Nursing/Assessment Patient Status: Established Patient OB Clinic Nursing Assessment: Medication Reconciliation, Update PMH in EMR and Vital Signs OB Clinic Coordination of Care: Education Complex Pt/Fam, Consent,records obtained, informed consent, Lab and Imaging orders and Staff clarify orders Special Needs: Heart tones Established Patient Charge Established Patient Point Assignment: 110 Established Patient Point Charge: EP Level 3 (80-115) Assessment & Plan Diagnosis / Problem List (1) Gestational hypertension: Status: Acute
[2025-07-06 09:43] VITALS: BP 147/86; PULSE 91; RESP 16; TEMP 36.2; O2SAT 98; BMI 38.8
== END 2025-07-06 10:18 | disposition home or self-care (01) ==
LOC: HODSOBC 09:23
PROVIDERS: Supervising Provider Obstetrics & Gynecology; Visit Provider Obstetrics & Gynecology
DX: O09.892 Supervision of other high risk pregnancies, second trimester (principal); O13.2 Gestational [pregnancy-induced] hypertension without significant proteinuria, second trimester; O99.712 Diseases of the skin and subcutaneous tissue complicating pregnancy, second trimester; L91.8 Other hypertrophic disorders of the skin; Z3A.27 27 weeks gestation of pregnancy
CPT/HCPCS: 99213; G0463

== ENCOUNTER 2025-07-15 09:04 | Outpatient (AMB) | payer MEDICAID, SELFPAY ==
[2025-07-15 09:16] VITALS: BP 121/82; PULSE 73; RESP 16; TEMP 36.2; O2SAT 98; BMI 38.7
--- NOTE | 2025-07-15 09:16 | OBCLNT_ITS ---
Vital Signs 07/15/25 09:16 Height 1.6 m Height Method Stated Weight 99.11 kg Weight Measurement Method Standing Scale BMI 38.7 BP 121/82 Blood Pressure Source Automatic Cuff Blood Pressure Location Left Upper Arm Position Sitting Respiration 16 Pulse 73 Pulse Source Monitor Temp 97.2 F Temp Source Oral Pulse Oximetry (%) 98 Oxygen Delivery Method Room Air Allergies/Home Meds Allergies & Medications Allergies No Known Allergies Allergy (Verified 08/10/25 08:23) Medication Reconciliation vitamins with calcium no.72-iron 27 mg-folic acid 1 mg tablet ( Vitamins Plus Low Iron) 1 tab PO QDAY 90 days #90 tabs 02/22/25 [Rx Confirmed 08/10/25] labetalol 200 mg tablet 200 mg PO BID 30 days #60 tabs 07/06/25 [Rx Confirmed 08/10/25] Intake Visit Data Collection New Patient or Established: Established Patient (seen at [facility] within 3 years) Reason for Visit:: OBC Seen by Clinical Staff ONLY (RN/MA): No Outcomes Manager Required: No Do You Feel Safe at Home: Yes Authorities Contacted: N/A PCP or OBGYN visit in last 3 months: Yes Date of Last PCP or OBGYN visit: 07/06/25 Hx Now: Yes Are you currently on any form of Control: No Pain Present Currently: No Pain Scale Used: Alvarez-Armstrong/Numerical Pain scale:: 0 Smoking Status Smoking Status: Never smoker Questionnaires Covid-19 Vaccine Questionnaire Has patient been vacinated for Covid-19 Have you been vacinated for Covid-19: No PHQ-9 PHQ-2 Over the last 2 weeks, how often have you been bothered by any of the following problems? 1. Little interest or pleasure in doing things: not at all 2. Feeling down, depressed, or hopeless: not at all Total score: 0 PHQ-9 3. Trouble falling or staying asleep, or sleeping too much: Not at all 4. Feeling tired or having little energy: Not at all 5. Poor appetite or overeating: Not at all 6. Feeling bad about yourself - or that you are a failure or have let yourself or your family down: Not at all 7. Trouble concentrating on things, such as reading the newspaper or watching television: Not at all 8. Moving or speaking so slowly that other people could have noticed? - Or the opposite - being so fidgety or restless that you have been moving around a lot more than usual: not at all 9. Thoughts that you would be better off or of hurting yourself in some way: Not at all Total score: 0 If you checked off any problems, how difficult have these problems made it for you to do your work, take care of things at home, or get along with other peop le?: not difficult at all Source: Developed by Drs. Michael Hanson, Yin Dangelo, Nicholas Reyes and colleagues, with an educational [place]ia from [employer]. Depression screen completed yes Social History Living Situation History Marital Status: Single Lives With: Family Housing: House Tobacco History Smoking Status: Never smoker Second Hand Smoke Exposure: No Alcohol History Alcohol Intake: Never Domestic Abuse History Do You Feel Safe at Home: Yes Care OB Visit Log OB Flowsheet Initial Weight: Not Recorded Date -?-?-?-?-?-?-?-?-?-?-?-?- EGA Weight BP Alb Glu CTX Pres Fundal ht FHR Mov Dilation Station Effacement Hx Notes Visit Note 02/22/25 -?-?-?-?-?-?-?-?-?-?-?-?- 8w 0d 88.224 kg 131/82 165 OBI: Patient reports LMP of December 08, 2024, placing her at 9 weeks 2 days gestation with NIMISHA of September 25, 2025. Ultrasound performed today shows a single intrauterine measuring 8 weeks with heart rate of 165 bpm, which is within normal range. No blood clots or complications visualized on ultraso und. 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 Plan: - Continue vitamins - Order comprehensive labs - Follow-up appointment scheduled for ne xt week to review lab results - Provide work restriction note until th e end of next week - Recommend bringing FMLA forms to next appointment for completion - Anticipate lifting work restrictions a t 15-16 weeks gestation, pending clinical status 03/22/25 -?-?-?-?-?-?-?-?-?-?-?-?- 12w 0d 90.775 kg 130/73 at 12 weeks gestation, presents for routine care. Reports headaches and pelvic pain with prolonged walking, resolves with rest. History of 2 recent losses. Bedside ultrasound confirms viable IUP measuring 13 weeks. Genetic screen inadequate due to early gestation. 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 Reports improved N/V, ongoing diarrhea likely viral or food-related, and mild L-sided back pain with urination. NIPT normal, fraction 14%, female fetus. US today reassuring, Plan: RTC in 4w, awaiting MFM US scheduling, disability extension form provided. Symptomatic management continues. 06/14/25 -?-?-?-?-?-?-?-?-?-?-?-?- 24w 0d 99.45 kg 130/82 absent unknown 135 active No contractions, LOF, VB and reports good FM. Denies MARKS, VC, and epigastric pain. - Patient reports: - Some swelling (unspecified location) - Blood pressure readings at home up t o 140/85 - No headaches or nausea - Active movement - Vaginal discharge without spotting - Recent history of loose motions (resol logan) - Blood glucose: - Patient has been self-monitoring - Reports levels between 90-90 mg/dL a fter eating - One instance of 200 mg/dL after cons uming bun noodles - Resolved with walking before bedti me - Denies any other episodes of elevated blood glucose - Order 24-hour urine test - Perform A1c test instead of glucose sc reening drink - Continue monitoring blood pressure at home; if above 160/100, patient to go to hospital - Avoid starchy foods to manage blood gl ucose levels - Extend disability paperwork 07/06/25 -?-?-?-?-?-?-?-?-?-?-?-?- 27w 1d 99.507 kg 147/86 absent unknown 149 active 29-year-old at 27 weeks and 1 day gestation presenting with gestational hypertension, evidenced by elevated blood pressure of 147/86. 24-hour urine protein is elevated at 425, suggesting possible preeclampsia. Patient reports occasional visual disturbances ( seeing spots ) but denies right-sided abdominal pain. Hemoglobin A1c is 5.7, which is within normal range. TSH is 2.2. Patient also notes back pain, likely related to . Multiple skin tags noted on neck, attributed to - related hormonal changes. - Star t labetalol for elevated blood pressure - Follow up in 1 week for blood pressure check - Restrict sodium intake; patient provid ed with low-sodium diet printout - Continue monitoring for preeclampsia s ymptoms - Consider delivery timing based on bloo d pressure control (37-38 weeks if co ntrolled, potentially earlier if difficult to control) - Minimum gestational age for delivery s et at 34 weeks due to lung maturity - Broadcast Chief Engineer referral for skin tag re moval to be considered 07/15/25 -?-?-?-?-?-?-?-?-?-?-?-?- 28w 3d 99.11 kg 121/82 absent unknown 155 active - Mildred Watters presents for a one-week follow-up and blood pressure check after starting labetalol 200mg twice daily for mild range blood pressures. - Blood pressure today is 121/82. - Reports pelvic pain and side pains, li hiren from the baby's position. - Experiencing constipation since eating healthier. - Beans noted to cause more constipati on. - Adhering to prescribed medication katie men. - Following a no-salt diet. - Denies any significant drops in blood pressure. - Continue labetalol 200mg twice daily until delivery, unless blood pressure drops significantly - Monitor blood pressure once daily at t he same time when relaxed - Follow up in 2 weeks - Repeat ultrasound and pre-eclampsia la b panel at 32 weeks - Start bi-weekly monitoring at 32 weeks - Follow up ultrasound in 4 to 6 weeks t o reassess anatomy - Increase intake of soluble fiber (e.g. , apples, berries, kiwi) for constipation - Encourage walking for exercise - Try different positions and use pillow s for leg elevation to alleviate pain 07/26/25 -?-?-?-?-?-?-?-?-?-?-?-?- 30w 0d 99.96 kg 116/76 absent unknown 145 active No contractions, LOF, VB and reports good FM. Patient reports visual disturbances ( li ttle brown ). Denies MARKS, VC, and epigastric pain. - Blood pressure well-controlled on labe talol 200mg BID - Today's BP: 116/76 mmHg - Reports occasional visual disturbances - Describes seeing little brown - Not associated with headaches - Experiences headaches - Patient reports they are normal hea daches - Clinician attributes to beta-jewel side effect - Complains of back pain on one side - Described as feeling like a cramp - Consistent with previous visit - Reports confusion about due date - Clarified as October 04 based on ultrasound dating Plan - Continue labetalol 200mg twice daily f or blood pressure control - Referral for NST (non-stress test) by Dionna - Follow up in 2 weeks - Due for labs at next visit - Patient instructed to come to hospital if concerned or if experiencing severe headache or visual disturbances 08/10/25 -?-?-?-?-?-?-?-?-?-?-?-?- 32w 1d 99.847 kg 111/72 absent unknown 138 active - She is currently taking labetalol 200mg twice daily for gestational hypertension. - She reports experiencing occasional l ittle sparkles and headaches. - She continues to have flank pain that she has been experiencing previously. - She denies right-sided stomach pain. - She denies preeclampsia symptoms. - She is checking her blood pressure twi ce weekly. - She may experience palpitations relate d to the labetalol medication causing reflex tachycardia. - Continue l abetalol 200mg twice daily for gestational hypertension - Obtain CBC, RPR, CMP, and urinalysis f or pre-eclampsia workup - Check liver enzymes, kidney function, and A1c - Plan induction at 37-38 weeks if blood pressure remains stable - Growth scan scheduled next week at [facility] with Dr. Lam - Weekly appointments from now on - Blood pressure monitoring twice weekly - Follow up in one week - Add A1c to test order NIMISHA Calculator Estimated Delivery Date Method Current WG Current Estimate 10/04/25 Ultrasound #1 33w 4d Other Estimates 09/25/25 LMP (Certain) 34w 6d Assessment & Plan Diagnosis / Problem List (1) Gestational hypertension: Status: Acute (2) care for patient with recurrent loss: Status: Acute Plan Problem List - Gestational hypertension - Pelvic pain - Constipation Assessment Gestational hypertension, well-controlled on labetalol 200mg BID, with current BP 121/82. ultrasound from two days ago shows normal anatomy and appropriate growth with EFW of 2 pounds 10 ounces, though some views were suboptimal due to position. Patient reports pelvic and side pain, likely due to positioning. Constipation noted, possibly related to dietary changes. heart rate 159 bpm, within normal range. Plan - Continue labetalol 200mg twice daily until delivery, unless blood pressure drops significantly - Monitor blood pressure once daily at the same time when relaxed - Follow up in 2 weeks - Repeat ultrasound and pre-eclampsia lab panel at 32 weeks - Start bi-weekly monitoring at 32 weeks - Follow up ultrasound in 4 to 6 weeks to reassess anatomy - Increase intake of soluble fiber (e.g., apples, berries, kiwi) for constipation - Encourage walking for exercise - Try different positions and use pillows for leg elevation to alleviate pain 1. Progress Reviewed gestational age, growth, and heart rate. Planned frequent visits (every 2 weeks until 36 weeks, then weekly). 2. Instructed patient to monitor movements and report decreases immediately. 3. Testing Counseled on routine third-trimester labs per guidelines. Discussed potential need for ultrasound or monitoring based on risk factors. 4. Preeclampsia Precaution Educated on preeclampsia signs: severe headache, vision changes, right upper quadrant pain, sudden swelling. Advised urgent reporting of symptoms and discussed blood pressure monitoring if high risk. 5. Labor Precautions Reviewed labor signs: regular contractions, pelvic pressure, back pain, bleeding, or fluid leakage. Instructed to seek immediate care for these symptoms. 6. Lifestyle and Delivery Preparation Reinforced vitamins, nutrition, and safe activity. Discussed plan, pain management, and . Advised on labor preparation (e.g., hospital bag) and expectations. 7. Psychosocial Support Assessed emotional well-being and offered resources for mental health or parenting support.
== END 2025-07-15 09:52 | disposition home or self-care (01) ==
LOC: HODSOBC 09:04
PROVIDERS: Supervising Provider Obstetrics & Gynecology; Visit Provider Obstetrics & Gynecology
DX: O09.893 Supervision of other high risk pregnancies, third trimester (principal); O13.3 Gestational [pregnancy-induced] hypertension without significant proteinuria, third trimester; O09.293 Supervision of pregnancy with other poor reproductive or obstetric history, third trimester; O26.23 Pregnancy care for patient with recurrent pregnancy loss, third trimester; O99.613 Diseases of the digestive system complicating pregnancy, third trimester; K59.00 Constipation, unspecified; Z3A.28 28 weeks gestation of pregnancy
CPT/HCPCS: 99213; G0463

== ENCOUNTER 2025-07-26 09:03 | Outpatient (AMB) | payer MEDICAID, SELFPAY ==
[2025-07-26 09:03] VITALS: BP 116/76; PULSE 85; RESP 18; TEMP 36.7; O2SAT 97; BMI 39.0
--- NOTE | 2025-07-26 09:03 | OBCLNT_ITS ---
Vital Signs 07/26/25 09:03 Height 1.6 m Height Method Measured Weight 99.96 kg Weight Measurement Method Standing Scale BMI 39.0 BP 116/76 Blood Pressure Source Automatic Cuff Blood Pressure Location Right Upper Arm Position Sitting Respiration 18 Pulse 85 Pulse Source Monitor Temp 98.1 F Temp Source Temporal Artery Scan Pulse Oximetry (%) 97 Oxygen Delivery Method Room Air Allergies/Home Meds Allergies & Medications Allergies No Known Allergies Allergy (Verified 07/15/25 09:17) Intake Visit Data Collection New Patient or Established: Established Patient (seen at [facility] within 3 years) Reason for Visit:: OBC FOLLOW UP PT INFORMED TO REGISTER AT [facility] Seen by Clinical Staff ONLY (RN/MA): No Buffing Wheel Operator Required: No Do You Feel Safe at Home: Yes Authorities Contacted: N/A PCP or OBGYN visit in last 3 months: Yes Date of Last PCP or OBGYN visit: 07/15/25 Hx Now: Yes Are you currently on any form of Control: No Pain Present Currently: No Smoking Status Smoking Status: Never smoker Questionnaires PHQ-9 PHQ-2 Over the last 2 weeks, how often have you been bothered by any of the following problems? 1. Little interest or pleasure in doing things: not at all PHQ-9 8. Moving or speaking so slowly that other people could have noticed? - Or the opposite - being so fidgety or restless that you have been moving around a lot more than usual: not at all Source: Developed by Drs. Michael Hanson, Yin Dangelo, Nicholas Reyes and colleagues, with an educational [place]ia from [employer]. Social History Living Situation History Lives With: Family Housing: House Tobacco History Smoking Status: Never smoker Second Hand Smoke Exposure: No Alcohol History Alcohol Intake: Never Domestic Abuse History Do You Feel Safe at Home: Yes Care OB Visit Log OB Flowsheet Initial Weight: Not Recorded Date -?-?-?-?-?-?-?-?-?-?-?-?- EGA Weight BP Alb Glu CTX Pres Fundal ht FHR Mov Dilation Station Effacement Hx Notes Visit Note 02/22/25 -?-?-?-?-?-?-?-?-?-?-?-?- 8w 0d 88.224 kg 131/82 165 OBI: Patient reports LMP of December 08, 2024, placing her at 9 weeks 2 days gestation with NIMISHA of September 25, 2025. Ultrasound performed today shows a single intrauterine measuring 8 weeks with heart rate of 165 bpm, which is within normal range. No blood clots or complications visualized on ultrasound. 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 Plan: - Continue vitamins - Order comprehensive labs - Follow-up appointment scheduled for ne xt week to review lab results - Provide work restriction note until th e end of next week - Recommend bringing FMLA forms to next appointment for completion - Anticipate lifting work restrictions a t 15-16 weeks gestation, pending c linical status 03/22/25 -?-?-?-?-?-?-?-?-?-?-?-?- 12w 0d 90.775 kg 130/73 at 12 weeks gestation, presents for routine care. Reports headaches and pelvic pain with prolonged walking, resolves with rest. History of 2 recent losses. Bedside ultrasound confirms viable IUP measuring 13 weeks. Genetic screen inadequate due to early gestation. 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 Reports improved N/V, ongoing diarrhea likely viral or food-related, and mild L-sided back pain with urination. NIPT normal, fraction 14%, female fetus. US today reassuring, Plan: RTC in 4w, awaiting [facility] US scheduling, disability extension form provided. Symptomatic management contin ues. 06/14/25 -?-?-?-?-?-?-?-?-?-?-?-?- 24w 0d 99.45 kg 130/82 absent unknown 135 active No contractions, LOF, VB and reports good FM. Denies MARKS, VC, and epigastric pain. - Patient reports: - Some swelling (unspecified location) - Blood pressure readings at home up t o 140/85 - No headaches or nausea - Active movement - Vaginal discharge without spotting - Recent history of loose motions (resol logan) - Blood glucose: - Patient has been self-monitoring - Reports levels between 90-90 mg/dL a fter eating - One instance of 200 mg/dL after cons uming bun noodles - Resolved with walking before bedti me - Denies any other episodes of elevated blood glucose - Order 24-hour urine test - Perform A1c test instead of glucose sc reening drink - Continue monitoring blood pressure at home; if above 160/100, patient to go to hospital - Avoid starchy foods to manage blood gl ucose levels - Extend disability paperwork 07/06/25 -?-?-?-?-?-?-?-?-?-?-?-?- 27w 1d 99.507 kg 147/86 absent unknown 149 active 29-year-old at 27 weeks and 1 day gestation presenting with gestational hypertension, evidenced by elevated blood pressure of 147/86. 24-hour urine protein is elevated at 425, suggesting possible preeclampsia. Patient reports occasional visual disturbances ( seeing spots ) but denies right-sided abdominal pain. Hemoglobin A1c is 5.7, which is within normal range. TSH is 2.2. Patient also notes back pain, likely related to . Multiple skin tags noted on neck, attributed to - related hormonal changes. - Star t labetalol for elevated blood pressure - Follow up in 1 week for blood pressure check - Restrict sodium intake; patient provid ed with low-sodium diet printout - Continue monitoring for preeclampsia s ymptoms - Consider delivery timing based on bloo d pressure control (37-38 weeks if controlled, potentially earlier if difficult to control) - Minimum gestational age for delivery s et at 34 weeks due to lung maturity - Survey Crew Chief referral for skin tag re moval to be considered 07/26/25 -?-?-?-?-?-?-?-?-?-?-?-?- 30w 0d 99.96 kg 116/76 absent unknown 145 active No contractions, LOF, VB and reports good FM. Patient reports visual disturbances ( li ttle brown ). Denies MARKS, VC, and epigastric pain. - Blood pressure well-controlled on labe talol 200mg BID - Today's BP: 116/76 mmHg - Reports occasional visual disturbances - Describes seeing little brown - Not associated with headaches - Experiences headaches - Patient reports they are normal henichole trevino - Clinician attributes to beta-jewel side effect - Complains of back pain on one side - Described as feeling like a cramp - Consistent with previous visit - Reports confusion about due date - Clarified as October 04 based on ultrasound dating Plan - Continue labetalol 200mg twice daily f or blood pressure control - Referral for NST (non-stress test) by Dionna - Follow up in 2 weeks - Due for labs at next visit - Patient instructed to come to hospital if concerned or if experiencing severe headache or visual disturbances NIMISHA Calculator Estimated Delivery Date Method Current WG Current Estimate 10/04/25 Ultrasound #1 30w 0d Other Estimates 09/25/25 LMP (Certain) 31w 2d Office Procedures OB Clinic LOC & Office Proc's Nursing/Assessment Patient Status: Established Patient OB Clinic Nursing Assessment: Medication Reconciliation, Update PMH in EMR and Vital Signs OB Clinic Coordination of Care: Complex Care and Chronic Disease 1-5, Education Complex Pt/Fam, Consent,records obtained, informed consent, Lab and Imaging orders, Results/Orders obtained and Staff clarify orders Special Needs: Heart tones Established Patient Charge Established Patient Point Assignment: 140 Established Patient Point Charge: EP Level 4 (120-155) Assessment & Plan Diagnosis / Problem List (1) Gestational hypertension: Status: Acute (2) care for patient with recurrent loss: Status: Acute (3) Supervision of high risk , unspecified, first trimester: Status: Acute Plan Problem List - , 30 weeks and 0 days - Chronic hypertension complicating - Low back pain in Assessment at 30 weeks 0 days gestation with chronic hypertension, well-controlled on labetalol 200mg BID. Blood pressure today 116/76, improved from previous visits. Patient reports occasional visual disturbances ( brown ), but these are not consistent with preeclampsia given the current blood pressure. Patient also experiences intermittent headaches, likely related to beta-jewel use. Back pain noted, particularly on one side, attributed to physiological changes of causing uterine pressure on ureters. heart rate 144 bpm, within normal limits. Plan - Continue labetalol 200mg twice daily for blood pressure control - Referral for NST (non-stress test) by Dionna - Follow up in 2 weeks - Due for labs at next visit - Patient instructed to come to hospital if concerned or if experiencing severe headache or visual disturbances 1. Progress Reviewed gestational age, growth, and heart rate. Planned frequent visits (every 2 weeks until 36 weeks, then weekly). 2. Instructed patient to monitor movements and report decreases immediately. 3. Testing Counseled on routine third-trimester labs per guidelines. Discussed potential need for ultrasound or monitoring based on risk factors. 4. Preeclampsia Precaution Educated on preeclampsia signs: severe headache, vision changes, right upper quadrant pain, sudden swelling. Advised urgent reporting of symptoms and discussed blood pressure monitoring if high risk. 5. Labor Precautions Reviewed labor signs: regular contractions, pelvic pressure, back pain, bleeding, or fluid leakage. Instructed to seek immediate care for these symptoms. 6. Lifestyle and Delivery Preparation Reinforced vitamins, nutrition, and safe activity. Discussed plan, pain management, and . Advised on labor preparation (e.g., hospital bag) and expectations. 7. Psychosocial Support Assessed emotional well-being and offered resources for mental health or parenting support.
== END 2025-07-26 10:14 | disposition home or self-care (01) ==
LOC: HODSOBC 09:03
PROVIDERS: Supervising Provider Obstetrics & Gynecology; Visit Provider Obstetrics & Gynecology
DX: O09.893 Supervision of other high risk pregnancies, third trimester (principal); O13.3 Gestational [pregnancy-induced] hypertension without significant proteinuria, third trimester; O09.293 Supervision of pregnancy with other poor reproductive or obstetric history, third trimester; O26.23 Pregnancy care for patient with recurrent pregnancy loss, third trimester; O99.891 Other specified diseases and conditions complicating pregnancy; M54.50 Low back pain, unspecified; Z3A.30 30 weeks gestation of pregnancy; Z79.899 Other long term (current) drug therapy
CPT/HCPCS: 99214; G0463

== ENCOUNTER 2025-08-10 08:18 | Outpatient (AMB) | payer MEDICAID, SELFPAY ==
[2025-08-10 08:20] VITALS: BP 111/72; PULSE 76; RESP 17; TEMP 36.7; O2SAT 97; BMI 38.9
--- NOTE | 2025-08-10 08:20 | OBCLNT_ITS ---
Vital Signs 08/10/25 08:20 Height 1.6 m Height Method Stated Weight 99.847 kg Weight Measurement Method Standing Scale BMI 38.9 BP 111/72 Blood Pressure Source Automatic Cuff Blood Pressure Location Right Upper Arm Position Sitting Respiration 17 Pulse 76 Pulse Source Monitor Temp 98.1 F Temp Source Temporal Artery Scan Pulse Oximetry (%) 97 Oxygen Delivery Method Room Air Allergies/Home Meds Allergies & Medications Allergies No Known Allergies Allergy (Verified 08/10/25 08:23) Medication Reconciliation vitamins with calcium no.72-iron 27 mg-folic acid 1 mg tablet ( Vitamins Plus Low Iron) 1 tab PO QDAY 90 days #90 tabs 02/22/25 [Rx Confirmed 08/10/25] labetalol 200 mg tablet 200 mg PO BID 30 days #60 tabs 07/06/25 [Rx Confirmed 08/10/25] Intake Visit Data Collection New Patient or Established: Established Patient (seen at [facility] within 3 years) Reason for Visit:: OBC Seen by Clinical Staff ONLY (RN/MA): No 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 1. Little interest or pleasure in doing things: not at all 2. Feeling down, depressed, or hopeless: not at all Total score: 0 PHQ-9 3. Trouble falling or staying asleep, or sleeping too much: Not at all 4. Feeling tired or having little energy: Not at all 5. Poor appetite or overeating: Not at all 6. Feeling bad about yourself - or that you are a failure or have let yourself or your family down: Not at all 7. Trouble concentrating on things, such as reading the newspaper or watching television: Not at all 8. Moving or speaking so slowly that other people could have noticed? - Or the opposite - being so fidgety or restless that you have been moving around a lot more than usual: not at all 9. Thoughts that you would be better off or of hurting yourself in some way: Not at all Total score: 0 If you checked off any problems, how difficult have these problems made it for you to do your work, take care of things at home, or get along with other people?: not difficult at all Source: Developed by Drs. Michael Hanson, Yin Dangelo, Nicholas Reyes and colleagues, with an educational virginia from [employer]. Depression screen completed yes Social History Living Situation History Marital Status: Single Lives With: Family Housing: House Tobacco History Smoking Status: Never smoker Second Hand Smoke Exposure: No Alcohol History Alcohol Intake: Never Domestic Abuse History Do You Feel Safe at Home: Yes Care OB Visit Log OB Flowsheet Initial Weight: Not Recorded Date -?--?-?-?-?-?-?-?-?-?-?-?- EGA Weight BP Alb Glu CTX Pres Fundal ht FHR Mov Dilation Station Effacement Hx Notes Visit Note 02/22/25 -?-?-?-?-?-?-?-?-?-?-?-?- 8w 0d 88.224 kg 131/82 165 OBI: Patient reports LMP of December 08, 2024, placing her at 9 weeks 2 days gestation with NIMISHA of September 25, 2025. Ultrasound performed today shows a single intrauterine measuring 8 weeks with heart rate of 165 bpm, which is within normal range. No blood clots or complications visualized on ultrasound. 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 Plan: - Continue vitamins - Order comprehensive labs - Follow-up appointment scheduled for ne xt week to review lab results - Provide work restriction note until th e end of next week - Recommend bringing FMLA forms to next appointment for completion - Anticipate lifting work restrictions a t 15-16 weeks gestation, pending clinical status 03/22/25 -?-?-?-?-?-?-?-?-?-?-?-?- 12w 0d 90.775 kg 130/73 at 12 weeks gestation, presents for routine care. Reports headaches and pelvic pain with prolonged walking, resolves with rest. History of 2 recent losses. Bedside ultrasound confirms viable IUP measuring 13 weeks. Genetic screen inadequate due to early gestation. 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 Reports improved N/V, ongoing diarrhea likely viral or food-related, and mild L-sided back pain with urination. NIPT normal, f raction 14%, female fetus. US today reassuring, Plan: RTC in 4w, awaiting [facility] US scheduling, disability extension form provided. Symptomatic management continues. 06/14/25 -?-?-?-?-?-?-?--?-?-?-?-?- 24w 0d 99.45 kg 130/82 absent unknown 135 active No contractions, LOF, VB and reports good FM. Denies MARKS, VC, and epigastric pain. - Patient reports: - Some swelling (unspecified location) - Blood pressure readings at home up t o 140/85 - No headaches or nausea - Active movement - Vaginal discharge without spotting - Recent history of loose motions (resol logan) - Blood glucose: - Patient has been self-monitoring - Reports levels between 90-90 mg/dL a fter eating - One instance of 200 mg/dL after cons uming bun noodles - Resolved with walking before bedti me - Denies any other episodes of elevated blood glucose - Order 24-hour urine test - Perform A1c test instead of glucose sc reening drink - Continue monitoring blood pressure at home; if above 160/100, patient to go to hospital - Avoid starchy foods to manage blood gl ucose levels - Extend disability paperwork 07/06/25 -?-?-?-?-?-?-?-?-?-?-?-?- 27w 1d 99.507 kg 147/86 absent unknown 149 active 29-year-old at 27 weeks and 1 day gestation presenting with gestational hypertension, evidenced by elevated blood pressure of 147/86. 24-hour urine protein is elevated at 425, suggesting possible preeclampsia. Patient reports occasional visual disturbances ( seeing spots ) but denies right-sided abdominal pain. Hemoglobin A1c is 5.7, which is within normal range. TSH is 2.2. Patient also notes back pain, likely related to . Multiple skin tags noted on neck, attributed to - related hormonal changes. - Star t labetalol for elevated blood pressure - Follow up in 1 week for blood pressure check - Restrict sodium intake; patient provid ed with low-sodium diet printout - Continue monitoring for preeclampsia s ymptoms - Consider delivery timing based on bloo d pressure control (37-38 weeks if controlled, potentially earlier if difficult to control) - Minimum gestational age for delivery s et at 34 weeks due to lung maturity - Furnace Converter referral for skin tag re moval to be considered 07/26/25 -?-?-?-?-?-?-?-?-?-?-?-?- 30w 0d 99.96 kg 116/76 absent unknown 145 active No contractions, LOF, VB and reports good FM. Patient reports visual disturbances ( li ttle brown ). Denies MARKS, VC, and epigastric pain. - Blood pressure well-controlled on labe talol 200mg BID - Today's BP: 116/76 mmHg - Reports occasional visual disturbances - Describes seeing little brown - Not associated with headaches - Experiences headaches - Patient reports they are normal hea daches - Clinician attributes to beta-jewel side effect - Complains of back pain on one side - Described as feeling like a cramp - Consistent with previous visit - Reports confusion about due date - Clarified as October 04 based on ultrasound dating Plan - Continue labetalol 200mg twice daily f or blood pressure control - Referral for NST (non-stress test) by Dionna - Follow up in 2 weeks - Due for labs at next visit - Patient instructed to come to hospital if concerned or if experiencing severe headache or visual disturbances 08/10/25 -?-?-?-?-?-?-?-?-?-?-?-?- 32w 1d 99.847 kg 111/72 absent unknown 138 active - She is currently taking labetalol 200mg twice daily for gestational hypertension. - She reports experiencing occasional l ittle sparkles and headaches. - She continues to have flank pain that she has been experiencing previously. - She denies right-sided stomach pain. - She denies preeclampsia symptoms. - She is checking her blood pressure twi ce weekly. - She may experience palpitations relate d to the labetalol medication causing reflex tachycardia. - Continue l abetalol 200mg twice daily for gestational hypertension - Obtain CBC, RPR, CMP, and urinalysis f or pre-eclampsia workup - Check liver enzymes, kidney function, and A1c - Plan induction at 37-38 weeks if blood pressure remains stable - Growth scan scheduled next week at [facility] with Dr. Lam - Weekly appointments from now on - Blood pressure monitoring twice weekly - Follow up in one week - Add A1c to test order NIMISHA Calculator Estimated Delivery Date Method Current WG Current Estimate 10/04/25 Ultrasound #1 32w 1d Other Estimates 09/25/25 LMP (Certain) 33w 3d Office Procedures OBC Clinic LOC & Office Proc's Nursing/Assessment Patient Status: Established Patient OB Clinic Nursing Assessment: Medication Reconciliation, Update PMH in EMR and Vital Signs OB Clinic Coordination of Care: Complex Care and Chronic Disease 1-5, Education Complex Pt/Fam, Consent,records obtained, informed consent and Staff clarify orders Special Needs: Heart tones Established Patient Charge Established Patient Point Assignment: 120 Established Patient Point Charge: EP Level 4 (120-155) Assessment & Plan Diagnosis / Problem List (1) Gestational hypertension: Status: Acute (2) care for patient with recurrent loss: Status: Acute (3) Supervision of high risk , unspecified, third trimester: Status: Acute (4) 32 weeks gestation of : Status: Acute Plan Problem List - Gestational hypertension - Recurrent loss - Flank pain - Visual disturbances - Headaches Assessment 32-week and 1-day 3 para 0 patient with gestational hypertension currently managed on labetalol 200mg twice daily with blood pressure remaining stable. Patient reports visual disturbances described as little sparkles and headaches, along with ongoing flank pain, requiring pre-eclampsia workup with CBC, RPR, CMP, and urinalysis to evaluate liver enzymes and kidney function. History of recurrent loss. Third-trimester laboratories are due, with A1c previously completed in June instead of standard one-hour glucose test. Plan - Continue labetalol 200mg twice daily for gestational hypertension - Obtain CBC, RPR, CMP, and urinalysis for pre-eclampsia workup - Check liver enzymes, kidney function, and A1c - Plan induction at 37-38 weeks if blood pressure remains stable - Growth scan scheduled next week at [place] with Dr. Lam - Weekly appointments from now on - Blood pressure monitoring twice weekly - Follow up in one week - Add A1c to test order 1. Progress Reviewed gestational age (32 weeks and 1 day), growth, and heart rate. Planned frequent visits (weekly from now on). 2. Instructed patient to monitor movements and report decreases immediately. 3. Testing Counseled on routine third-trimester labs per guidelines (CBC, RPR, CMP, and urinalysis for pre-eclampsia workup). Discussed potential need for ultrasound or monitoring based on risk f actors (growth scan scheduled at [facility] with Dr. Lam). 4. Preeclampsia Precaution Educated on preeclampsia signs: severe headache, vision changes, right upper quadrant pain, sudden swelling. Advised urgent reporting of symptoms and discussed blood pressure monitoring if high risk (patient currently monitoring twice weekly, on labetalol 200mg twice daily for gestational hypertension). 5. Labor Precautions Reviewed labor signs: regular contractions, pelvic pressure, back pain, bleeding, or fluid leakage. Instructed to seek immediate care for these symptoms. 6. Lifestyle and Delivery Preparation Reinforced vitamins, nutrition, and safe activity. Discussed plan (attempting natural with induction planned at 37-38 weeks), pain management, and . Advised on labor preparation (e.g., hospital bag) and expectations. 7. Psychosocial Support Assessed emotional well-being and offered resources for mental health or parenting support.
== END 2025-08-10 08:53 | disposition home or self-care (01) ==
LOC: HODSOBC 08:18
PROVIDERS: Supervising Provider Obstetrics & Gynecology; Visit Provider Obstetrics & Gynecology
DX: O09.893 Supervision of other high risk pregnancies, third trimester (principal); O13.3 Gestational [pregnancy-induced] hypertension without significant proteinuria, third trimester; O09.291 Supervision of pregnancy with other poor reproductive or obstetric history, first trimester; O26.23 Pregnancy care for patient with recurrent pregnancy loss, third trimester; Z3A.32 32 weeks gestation of pregnancy
CPT/HCPCS: 99214; G0463

== ENCOUNTER 2025-08-23 08:21 | Outpatient (AMB) | payer MEDICAID, SELFPAY ==
[2025-08-23 08:31] VITALS: BP 122/79; PULSE 83; RESP 18; TEMP 36.2; O2SAT 98; BMI 39.3
--- NOTE | 2025-08-23 08:31 | OBCLNT_ITS ---
Vital Signs 08/23/25 08:31 Height 1.6 m Height Method Stated Weight 100.698 kg Weight Measurement Method Standing Scale BMI 39.3 BP 122/79 Blood Pressure Source Automatic Cuff Blood Pressure Location Left Upper Arm Position Sitting Respiration 18 Pulse 83 Pulse Source Monitor Temp 97.2 F Temp Source Oral Pulse Oximetry (%) 98 Oxygen Delivery Method Room Air Allergies/Home Meds Allergies & Medications Allergies No Known Allergies Allergy (Verified 10/18/25 11:26) Medication Reconciliation ibuprofen 800 mg tablet 800 mg PO Q8H PRN pain #30 tabs 09/26/25 [Rx Confirmed 10/18/25] labetalol 100 mg tablet 200 mg (2 x 100 mg) PO BID #30 tabs 09/26/25 [Rx Confirmed 10/18/25] misoprostol 100 mcg tablet (Cytotec) 100 mcg PO BID #6 tabs 09/26/25 [Rx Confirmed 10/18/25] cholecalciferol (vitamin D3) 250 mcg (10,000 unit) capsule 250 mcg PO QDAY 30 days #30 caps 10/18/25 [Rx] multivitamin (One Daily Multivitamin tablet) 1 tab PO QDAY 90 days #90 tabs 10/18/25 [Rx] Intake Visit Data Collection New Patient or Established: Established Patient (seen at [facility] within 3 years) Reason for Visit:: OBC Seen by Clinical Staff ONLY (RN/MA): No Battery Tester Field Required: No Do You Feel Safe at Home: Yes Authorities Contacted: N/A PCP or OBGYN visit in last 3 months: Yes Date of Last PCP or OBGYN visit: 08/22/25 Hx Now: Yes Are you currently on any form of Control: No Pain Present Currently: No Pain Scale Used: Alvarez-Armstrong/Numerical Pain scale:: 0 Smoking Status Smoking Status: Never smoker Questionnaires Covid-19 Vaccine Questionnaire Has patient been vacinated for Covid-19 Have you been vacinated for Covid-19: Yes PHQ-9 PHQ-2 Over the last 2 weeks, how often have you been bothered by any of the following problems? 1. Little interest or pleasure in doing things: not at all 2. Feeling down, depressed, or hopeless: not at all Total score: 0 PHQ-9 3. Trouble falling or staying asleep, or sleeping too much: Not at all 4. Feeling tired or having little energy: Not at all 5. Poor appetite or overeating: Not at all 6. Feeling bad about yourself - or that you are a failure or have let yourself or your family down: Not at all 7. Trouble concentrating on things, such as reading the newspaper or watching television: Not at all 8. Moving or speaking so slowly that other people could have noticed? - Or the opposite - being so fidgety or restless that you have been moving around a lot more than usual: not at all 9. Thoughts that you would be better off or of hurting yourself in some way: Not at all Total score: 0 If you checked off any problems, how difficult have these problems made it for you to do your work, take care of things at home, or get along with other people?: not difficult at all Source: Developed by Drs. Michael Hanson, Yin Dangelo, Nicholas Reyes and colleagues, with an educational [place] from [employer]. Depression screen completed yes Social History Living Situation History Lives With: Family Housing: House Tobacco History Smoking Status: Never smoker Second Hand Smoke Exposure: No Alcohol History Alcohol Intake: Never Domestic Abuse History Do You Feel Safe at Home: Yes Care OB Visit Log OB Flowsheet Initial Weight: Not Recorded Date -?-?-?-?-?-?-?-?-?-?-?-?- EGA Weight BP Alb Glu CTX Pres Fundal ht FHR Mov Dilation Station Effacement Hx Notes Visit Note 02/22/25 -?-?-?-?-?-?-?-?-?-?-?-?- 8w 0d 88.224 kg 131/82 165 OBI: Patient reports LMP of December 08, 2024, placing her at 9 weeks 2 days gestation with NIMISHA of September 25, 2025. Ultrasound performed today shows a single intrauterine measuring 8 weeks with heart rate of 165 bpm, which is within normal range. No blood clots or complications visualized on ultrasound. 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 Plan: - Continue vitamins - Order comprehensive labs - Follow-up appointment scheduled for week to review lab results - Provide work restriction note until e end of next week - Recommend bringing FMLA forms to next appointment for completion - Anticipate lifting work restrictions a t 15-16 weeks gestation, pending clinical status 03/22/25 -?-?-?-?-?-?-?-?-?-?-?-?- 12w 0d 90.775 kg 130/73 at 12 weeks gestation, presents for routine care. Reports headaches and pelvic pain with prolonged walking, resolves with rest. History of 2 recent losses. Bedside ultrasound confirms viable IUP measuring 13 weeks. Genetic screen inadequate due to early gestation. 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 Reports improved N/V, ongoing diarrhea likely viral or food-related, and mild L-sided back pain with urination. NIPT normal, fraction 14%, female fetus. US today reassuring, Plan: RTC in 4w, awaiting [facility] US scheduling, disability extension form provided. Symptomatic management continues. 06/14/25 -?-?-?-?-?-?-?-?-?-?-?-?- 24w 0d 99.45 kg 130/82 absent unknown 135 active No contractions, LOF, VB and reports good FM. Denies MARKS, VC, and epigastric pain. - Patient reports: - Some swelling (unspecified location) - Blood pressure readings at home up t o 140/85 - No headaches or nausea - Active movement - Vaginal discharge without spotting - Recent history of loose motions (resol logan) - Blood glucose: - Patient has been self-monitoring - Reports levels between 90-90 mg/dL a fter eating - One instance of 200 mg/dL after cons uming bun noodles - Resolved with walking before bedti me - Denies any other episodes of elevated blood glucose - Order 24-hour urine test - Perform A1c test instead of glucose sc reening drink - Continue monitoring blood pressure at home; if above 160/100, patient to go to hospital - Avoid starchy foods to manage blood gl ucose levels - Extend disability paperwork 07/06/25 -?-?-?-?-?-?-?-?-?-?-?-?- 27w 1d 99.507 kg 147/86 absent unknown 149 active 29-year-old at 27 weeks and 1 day gestation presenting with gestational hypertension, evidenced by elevated blood pressure of 147/86. 24-hour urine protein is elevated at 425, suggesting possible preeclampsia. Patient reports occasional visual disturbances ( seeing spots ) but denies right-sided abdominal pain. Hemoglobin A1c is 5.7, which is within normal range. TSH is 2.2. Patient also notes back pain, likely related to . Multiple skin tags noted on neck, attributed to - related hormonal changes. 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 - Blood pressure today is 121/82. - Reports pelvic pain and side pains, li hiren from the baby's position. - Experiencing constipation since eating healthier. - Beans noted to cause more constipati on. - Adhering to prescribed medication katie men. - Following a no-salt diet. - Denies any significant drops in blood pressure. - Continue labetalol 200mg twice daily until delivery, unless blood pressure drops significantly - Monitor blood pressure once daily at t he same time when relaxed - Follow up in 2 weeks - Repeat ultrasound and pre-eclampsia la b panel at 32 weeks - Start bi-weekly monitoring at 32 weeks - Follow up ultrasound in 4 to 6 weeks t o reassess anatomy - Increase intake of soluble fiber (e.g. , apples, berries, kiwi) for constipation - Encourage walking for exercise - Try different positions and use pillow s for leg elevation to alleviate pain 07/26/25 -?-?-?-?-?-?-?-?-?-?--?-?- 30w 0d 99.96 kg 116/76 absent unknown 145 active No contractions, LOF, VB and reports good FM. Patient reports visual disturbances ( li ttle brown ). Denies MARKS, VC, and epigastric pain. - Blood pressure well-controlled on labe talol 200mg BID - Today's BP: 116/76 mmHg - Reports occasional visual disturbances - Describes seeing little brown - Not associated with headaches - Experiences headaches - Patient reports they are normal hea daches - Clinician attributes to beta-jewel side effect - Complains of back pain on one side - Described as feeling like a cramp - Consistent with previous visit - Reports confusion about due date - Clarified as October 04 based on ultrasound dating Plan - Continue labetalol 200mg twice daily f or blood pressure control - Referral for NST (non-stress test) by Dionna - Follow up in 2 weeks - Due for labs at next visit - Patient instructed to come to hospital if concerned or if experiencing severe headache or visual disturbances 08/10/25 -?-?-?-?-?-?-?-?-?-?-?-?- 32w 1d 99.847 kg 111/72 absent unknown 138 active - She is currently taking labetalol 200mg twice daily for gestational hypertension. - She reports experiencing occasional l ittle sparkles and headaches. - She continues to have flank pain that she has been experiencing previously. - She denies right-sided stomach pain. - She denies preeclampsia symptoms. - She is checking her blood pressure twi ce weekly. - She may experience palpitations relate d to the labetalol medication causing reflex tachycardia. - Continue l abetalol 200mg twice daily for gestational hypertension - Obtain CBC, RPR, CMP, and urinalysis f or pre-eclampsia workup - Check liver enzymes, kidney function, and A1c - Plan induction at 37-38 weeks if blood pressure remains stable - Growth scan scheduled next week at [facility] with Dr. Lam - Weekly appointments from now on - Blood pressure monitoring twice weekly - Follow up in one week - Add A1c to test order 08/23/25 -?-?-?-?-?-?-?-?-?-?-?-?- 34w 0d 100.698 kg 122/79 absent unknown 145 active - She reports experiencing pain in her upper abdomen/chest area with associated shortness of breath. - Describes feeling like I can't mariusz the during these episodes - Pain appears to be positional and re lated to baby's position - She has been getting up and walking when this occurs - She continues taking blood pressure me dication for chronic hypertension. - She denies having preeclampsia symptom s beyond the baseline elevated protein in urine. - Continue blood pressure medication until delivery and for 2 months - Schedule induction for delivery nic blakely 38-39 weeks (targeting September 20 at 38 weeks) due to chronic hypertension on medications - Elevate head of bed to 45 degrees with pillows behind shoulders for breathing comfort - Consider sleeping in recliner or slant ed position instead of lying flat to relieve lung compression 09/05/25 -?-?-?-?-?-?-?-?-?-?-?-?- 35w 6d 100.754 kg 116/78 absent unknown 37 128 active - She had an NST appointment today where her RUTH ANN (amniotic fluid index) was found to be 10.4, which represents an improvement from previous measurements. - She reports feeling good overall but e xperiencing shortness of breath. - She describes tightness around the grant es that started on Friday while walking on . - The tightness occurred despite drink ing water and required her to sit down. - She is currently taking antibiotics fo r a UTI that was diagnosed last week and reports adherence to completing the course. - She received steroid shots to help wit h lung maturation as a precautionary measure. - She reports the baby has been having f requent hiccups. - She acknowledges that she may have bee n getting dehydrated and has increased her water intake. - Induction of labor scheduled for September 20 (at approximately 38 weeks gestation) due to gestational hypertension - Continue current antibiotic course to completion for UTI treatment - Follow-up appointment scheduled for xt week (final visit before induction) - Continue NST appointments (next schedu led for ) 09/14/25 -?-?-?-?-?-?-?-?-?-?-?-?- 37w 1d 102.682 kg 117/80 absent cephalic 39 14 5 active - She reports pressure sensation in her lower abdomen, which she describes as bad pressure. - She experiences cramps, which she iden tifies as either early contractions or leg cramps. - She notes some swelling but describes it as not being swollen, swollen. - She reports being itchy, possibly rela giovanni to her ring or the metal. - She attends regular ultrasounds with N STs on Mondays and and will continue this and the morning before her induction. - She is taking aspirin as prescribed an d plans to continue until the day before induction. - She denies significant worsening of swelling beyond what she has noticed. - Induction scheduled for 09-20; patient to call hospital number at 8 AM on induction day for room assignment and timing - Continue aspirin until the day before induction - Take magnesium [id number], one t ablet at night for cramps - Continue current blood pressure medica tions - Continue scheduled NST appointments on Mondays and , including before induction NIMISHA Calculator Estimated Delivery Date Method Current WG Current Estimate 10/04/25 Ultrasound #1 43w 2d Other Estimates 09/25/25 LMP (Certain) 44w 4d Notes Visit Date: 08/23/25 Last Updated by: Kamar Appiah MD Laboratory, Imaging, and Diagnostic Test Results - CBC: Hemoglobin 12.6 g/dL, Platelets 296 - CMP: with anomalies (specific values not detailed) - Hemoglobin A1c: 5.8% - Preeclampsia panel: negative (elevated protein noted from 24-hour urine collection) - [facility] ultrasound (08/18/2025): - Estimated weight 2066 grams (4 pounds, 9 ounces), 45th percentile - Anatomic survey: within normal limits - Placenta: anterior, no previa - presentation: cephalic - Biophysical profile (BPP): 06/10 - heart rate: 151 bpm Office Procedures OBC Clinic LOC & Office Proc's Nursing/Assessment Patient Status: Established Patient OB Clinic Nursing Assessment: Medication Reconciliation and Update PMH in EMR OB Clinic Coordination of Care: Consent,records obtained, informed consent, Education Simp Pt/Fam, Lab and Imaging orders, Results/Orders obtained and Staff clarify orders Special Needs: Heart tones Established Patient Charge Established Patient Point Assignment: 95 Established Patient Point Charge: EP Level 3 (80-115) Assessment & Plan Diagnosis / Problem List (1) Supervision of high risk , unspecified, third trimester: Status: Acute Plan Problem List - Chronic hypertension in - Proteinuria Assessment 34-week patient with chronic hypertension on medication and proteinuria. Preeclampsia workup is negative with normal blood pressure control, normal platelet count (296), normal liver and kidney function, and hemoglobin of 12.6. The elevated protein appears to be baseline rather than pathologic. Current symptoms include compression-related dyspnea and epigastric discomfort from positioning against the diaphragm and stomach. assessment shows appropriate growth with estimated weight of 2066 grams (45th percentile), normal anatomy survey, cephalic presentation, anterior placenta without previa, and biophysical profile of 06/10. Plan - Continue blood pressure medication until delivery and for 2 months - Schedule induction for delivery between 38-39 weeks (targeting September 20 at 38 weeks) due to chronic hypertension on medications - Elevate head of bed to 45 degrees with pillows behind shoulders for breathing comfort - Consider sleeping in recliner or slanted position instead of lying flat to relieve lung compression 1. Progress Reviewed gestational age (34 weeks 0 days), growth (estimated weight 2066 grams, 4 pounds 9 ounces, 45th percentile), and heart rate (151 bpm). Planned frequent visits (every 2 weeks until 36 weeks, then weekly). 2. Instructed patient to monitor movements and report decreases immediately. 3. Testing Counseled on routine third-trimester labs per guidelines (CBC showed hemoglobin 12.6, platelets 296, CMP with anomalies, A1c 5.8). Discussed potential need for ultrasound or monitoring based on risk factors ([facility] ultrasound completed 08-18-2025, BPP 06/10). 4. Preeclampsia Precaution Educated on preeclampsia signs: severe headache, vision changes, right upper quadrant pain, sudden swelling. Advised urgent reporting of symptoms and discussed blood pressure monitoring if high risk (preeclampsia workup negative, elevated protein at baseline, patient on blood pressure medication). 5. Labor Precautions Reviewed labor signs: regular contractions, pelvic pressure, back pain, bleeding, or fluid leakage. Instructed to seek immediate care for these symptoms. 6. Lifestyle and Delivery Preparation Reinforced vitamins, nutrition, and safe activity. Discussed plan, pain management, and (delivery planned between 38-39 weeks due to chronic hypertension, induction scheduled for September 20). Advised on labor preparation (e.g., hospital bag) and expectations (continue blood pressure medication until delivery and 2 months ). 7. Psychosocial Support Assessed emotional well-being and offered resources for mental health or parenting support.
== END 2025-08-23 09:26 | disposition home or self-care (01) ==
LOC: HODSOBC 08:21
PROVIDERS: Supervising Provider Obstetrics & Gynecology; Visit Provider Obstetrics & Gynecology
DX: O09.893 Supervision of other high risk pregnancies, third trimester (principal); O10.913 Unspecified pre-existing hypertension complicating pregnancy, third trimester; Z3A.34 34 weeks gestation of pregnancy; Z79.899 Other long term (current) drug therapy
CPT/HCPCS: 99213; G0463

== ENCOUNTER 2025-09-05 10:46 | Outpatient (AMB) | payer MEDICAID, SELFPAY ==
[2025-09-05 11:26] VITALS: BP 116/78; PULSE 75; RESP 18; TEMP 36.8; O2SAT 98; BMI 39.3
--- NOTE | 2025-09-05 11:26 | OBCLNT_ITS ---
Vital Signs 09/05/25 11:26 Height 1.6 m Height Method Stated Weight 100.754 kg Weight Measurement Method Standing Scale BMI 39.3 BP 116/78 Blood Pressure Source Automatic Cuff Blood Pressure Location Right Upper Arm Position Sitting Respiration 18 Pulse 75 Pulse Source Monitor Temp 98.2 F Temp Source Temporal Artery Scan Pulse Oximetry (%) 98 Oxygen Delivery Method Room Air Allergies/Home Meds Allergies & Medications Allergies No Known Allergies Allergy (Verified 09/05/25 11:28) Medication Reconciliation vitamins with calcium no.72-iron 27 mg-folic acid 1 mg tablet ( Vitamins Plus Low Iron) 1 tab PO QDAY 90 days #90 tabs 02/22/25 [Rx Confirmed 09/05/25] labetalol 200 mg tablet 200 mg PO BID 30 days #60 tabs 07/06/25 [Rx Confirmed 09/05/25] Intake Visit Data Collection New Patient or Established: Established Patient (seen at [facility] within 3 years) Reason for Visit:: OBC Seen by Clinical Staff ONLY (RN/MA): No Hoop Coiler Required: No Do You Feel Safe at Home: Yes Authorities Contacted: N/A PCP or OBGYN visit in last 3 months: Yes Date of Last PCP or OBGYN visit: 08/23/25 Hx Now: Yes Are you currently on any form of Control: No Pain Present Currently: No Pain Scale Used: Alvarez-Armstrong/Numerical Pain scale:: 1 Smoking Status Smoking Status: Never smoker Immunizations Flu Vaccine in the Last 12 Months: No Flu Vaccine Exclusion Criteria: No Exclusion Criteria Questionnaires Covid-19 Vaccine Questionnaire Has patient been vacinated for Covid-19 Have you been vacinated for Covid-19: No PHQ-9 PHQ-2 Over the last 2 weeks, how often have you been bothered by any of the following problems? 1. Little interest or pleasure in doing things: not at all 2. Feeling down, depressed, or hopeless: not at all Total score: 0 PHQ-9 3. Trouble falling or staying asleep, or sleeping too much: Not at all 4. Feeling tired or having little energy: Not at all 5. Poor appetite or overeating: Not at all 6. Feeling bad about yourself - or that you are a failure or have let yourself or your family down: Not at all 7. Trouble concentrating on things, such as reading the newspaper or watching television: Not at all 8. Moving or speaking so slowly that other people could have noticed? - Or the opposite - being so fidgety or restless that you have been moving around a lot more than usual: not at all 9. Thoughts that you would be better off or of hurting yourself in some way: Not at all Total score: 0 If you checked off any problems, how difficult have these problems made it for you to do your work, take care of things at home, or get along with other people?: not difficult at all Source: Developed by Drs. Michael Hanson, Yin Dangelo, Nicholas Reyes and colleagues, with an educational [place] from [employer]. Depression screen completed yes Social History Living Situation History Marital Status: Lives With: Family Housing: House Tobacco History Smoking Status: Never smoker Second Hand Smoke Exposure: No Alcohol History Alcohol Intake: Never Domestic Abuse History Do You Feel Safe at Home: Yes Care OB Visit Log OB Flowsheet Initial Weight: Not Recorded Date -?-?-?-?-?-?-?-?-?-?-?-?- EGA Weight BP Alb Glu CTX Pres Fundal ht FHR Mov Dilation Station Effacement Hx Notes Visit Note 02/22/25 -?-?-?-?-?-?-?-?-?-?-?-?- 8w 0d 88.224 kg 131/82 165 OBI: Patient reports LMP of December 08, 2024, placing her at 9 weeks 2 days gestation with NIMISHA of September 25, 2025. Ultrasound performed today shows a single intrauterine measuring 8 weeks with heart rate of 165 bpm, which is within normal range. No blood clots or complications visualized on ultrasoun d. 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 Plan: - Continue vitamins - Order comprehensive labs - Follow-up appointment scheduled for ne xt week to review lab results - Provide work restriction note until th e end of next week - Recommend bringing FMLA forms to next appointment for completion - Anticipate lifting work restrictions a t 15-16 weeks gestation, pending clinical status 03/22/25 -?-?-?-?-?-?-?-?-?-?-?-?- 12w 0d 90.775 kg 130/73 at 12 weeks gestation, [facility]. Reports headaches and pelvic pain with prolonged walking, resolves with rest. History of 2 recent losses. Bedside ultrasound confirms viable IUP measuring 13 weeks. Genetic screen inadequate due to early gestation. 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 Reports improved N/V, ongoing diarrhea likely viral or food-related, and mild L-sided back pain with urination. NIPT normal, fraction 14%, female fetus. US today reassuring, Plan: RTC in 4w, awaiting MFM US scheduling, disability extension form provided. Symptomatic management continues. 06/14/25 -?-?-?-?-?-?-?-?-?-?-?-?- 24w 0d 99.45 kg 130/82 absent unknown 135 active No contractions, LOF, VB and reports good FM. Denies MARKS, VC, and epigastric pain. - Patient reports: - Some swelling (unspecified location) - Blood pressure readings at home up t o 140/85 - No headaches or nausea - Active movement - Vaginal discharge without spotting - Recent history of loose motions (resol logan) - Blood glucose: - Patient has been self-monitoring - Reports levels between 90-90 mg/dL a fter eating - One instance of 200 mg/dL after cons uming bun noodles - Resolved with walking before bedti me - Denies any other episodes of elevated blood glucose - Order 24-hour urine test - Perform A1c test instead of glucose sc reening drink - Continue monitoring blood pressure at home; if above 160/100, patient to go to hospital - Avoid starchy foods to manage blood gl ucose levels - Extend disability paperwork 07/06/25 -?-?-?-?-?-?-?-?-?-?-?-?- 27w 1d 99.507 kg 147/86 absent unknown 149 active 29-year-old at 27 weeks and 1 day gestation presenting with gestational hypertension, evidenced by elevated blood pressure of 147/86. 24-hour urine protein is elevated at 425, suggesting possible preeclampsia. Patient reports occasional visual disturbances ( seeing spots ) but denies right-sided abdominal pain. Hemoglobin A1c is 5.7, which is within normal range. TSH is 2.2. Patient also notes back pain, likely related to . Multiple skin tags noted on neck, attributed to - related hormonal changes. 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 - Blood pressure today is 121/82. - Reports pelvic pain and side pains, li hiren from the baby's position. - Experiencing constipation since eating healthier. - Beans noted to cause more constipati on. - Adhering to prescribed medication katie men. - Following a no-salt diet. - Denies any significant drops in blood pressure. - Continue labetalol 200mg twice daily until delivery, unless blood pressure drops significantly - Monitor blood pressure once daily at t he same time when relaxed - Follow up in 2 weeks - Repeat ultrasound and pre-eclampsia la b panel at 32 weeks - Start bi-weekly monitoring at 32 weeks - Follow up ultrasound in 4 to 6 weeks t o reassess anatomy - Increase intake of soluble fiber (e.g. , apples, berries, kiwi) for constipation - Encourage walking for exercise - Try different positions and use pillow s for leg elevation to alleviate pain 07/26/25 -?-?-?-?-?-?-?-?-?-?-?-?- 30w 0d 99.96 kg 116/76 absent unknown 145 active No contractions, LOF, VB and reports good FM. Patient reports visual disturbances ( li ttle brown ). Denies MARKS, VC, and epigastric pain. - Blood pressure well-controlled on labe talol 200mg BID - Today's BP: 116/76 mmHg - Reports occasional visual disturbances - Describes seeing little brown - Not associated with headaches - Experiences headaches - Patient reports they are normal hea daches - Clinician attributes to beta-jewel side effect - Complains of back pain on one side - Described as feeling like a cramp - Consistent with previous visit - Reports confusion about due date - Clarified as October 04 based on ultrasound dating Plan - Continue labetalol 200mg twice daily f or blood pressure control - Referral for NST (non-stress test) by Dionna - Follow up in 2 weeks - Due for labs at next visit - Patient instructed to come to hospital if concerned or if experiencing severe headache or visual disturbances 08/10/25 -?-?-?-?-?-?-?-?-?-?-?-?- 32w 1d 99.847 kg 111/72 absent unknown 138 active - She is currently taking labetalol 200mg twice daily for gestational hypertension. - She reports experiencing occasional l ittle sparkles and headaches. - She continues to have flank pain that she has been experiencing previously. - She denies right-sided stomach pain. - She denies preeclampsia symptoms. - She is checking her blood pressure twi ce weekly. - She may experience palpitations relate d to the labetalol medication causing reflex tachycardia. - Continue l abetalol 200mg twice daily for gestational hypertension - Obtain CBC, RPR, CMP, and urinalysis f or pre-eclampsia workup - Check liver enzymes, kidney function, and A1c - Plan induction at 37-38 weeks if blood pressure remains stable - Growth scan scheduled next week at [facility] with Dr. Lam - Weekly appointments from now on - Blood pressure monitoring twice weekly - Follow up in one week - Add A1c to test order 09/05/25 -?-?-?-?-?-?-?-?-?-?-?-?- 35w 6d 100.754 kg 116/78 absent unknown 37 128 active - She had an NST appointment today where her RUTH ANN (amniotic fluid index) was found to be 10.4, which represents an improvement from previous measurements. - She reports feeling good overall but e xperiencing shortness of breath. - She describes tightness around the grant es that started on Friday while walking on . - The tightness occurred despite drink ing water and required her to sit down. - She is currently taking antibiotics fo r a UTI that was diagnosed last week and reports adherence to completing the course. - She received steroid shots to help wit h lung maturation as a precautionary measure. - She reports the baby has been having f requent hiccups. - She acknowledges that she may have bee n getting dehydrated and has increased her water intake. - Induction of labor scheduled for September 20 (at approximately 38 weeks gestation) due to gestational hypertension - Continue current antibiotic course to completion for UTI treatment - Follow-up appointment scheduled for week (final visit before induction) - Continue NST appointments (next schedu led for ) NIMISHA Calculator Estimated Delivery Date Method Current WG Current Estimate 10/04/25 Ultrasound #1 36w 0d Other Estimates 09/25/25 LMP (Certain) 37w 2d Office Procedures OBC Clinic LOC & Office Proc's Nursing/Assessment Patient Status: Established Patient OB Clinic Nursing Assessment: Medication Reconciliation, Update PMH in EMR and Vital Signs OB Clinic Coordination of Care: Complex Care and Chronic Disease 1-5, Education Complex Pt/Fam, Consent,records obtained, informed consent and Staff clarify orders Special Needs: Heart tones Established Patient Charge Established Patient Point Assignment: 120 Established Patient Point Charge: EP Level 4 (120-155) Assessment & Plan Diagnosis / Problem List (1) Supervision of high risk , unspecified, third trimester: Status: Acute (2) Gestational hypertension: Status: Acute Plan Problem List - Gestational hypertension - Urinary tract infection Assessment 37-year-old patient at 35 weeks and 6 days gestation with gestational hypertension requiring delivery between 37-38 weeks. Amniotic fluid index has improved to 10.4, representing an increase from previous measurements. Patient reports shortness of breath and tightness around the sides, with the latter potentially indicating early labor signs. Recent urinary tract infection is being treated with antibiotics. Patient received steroid injections for lung maturation as precautionary measure in case early delivery becomes necessary due to blood pressure complications. Patient reports hiccups and experienced dehydration symptoms during recent physical activity. Plan - Induction of labor scheduled for September 20 (at approximately 38 weeks gestation) due to gestational hypertension - Continue current antibiotic course to completion for UTI treatment - Follow-up appointment scheduled for next week (final visit before induction) - Continue NST appointments (next scheduled for ) 1. Progress Reviewed gestational age at 35 weeks and 6 days, growth, and heart rate. Patient reports hiccups which is reassuring. RUTH ANN improved to 10.4. Planned frequent visits with next appointment scheduled for next week, which will be the last appointment before induction. 2. Instructed patient to monitor movements and report decreases immediately. 3. Testing Patient completed NST appointment today with improved RUTH ANN results. Steroid shots were administered to help lung maturation as precautionary measure. 4. Preeclampsia Precaution Patient has gestational hypertension requiring delivery between 37-38 weeks. Induction scheduled for September 20 due to hypertensive condition. Monitoring blood pressure closely. 5. Labor Precautions Patient reports tightness around the sides which may be early labor signs. Reviewed symptoms and advised continued monitoring. Patient experienced some symptoms while walking on Halloween but managed with rest and hydration. 6. Lifestyle and Delivery Preparation Patient advised to continue increased water intake due to previous dehydration. Induction date set for September 20 at 37+ weeks gestation. Patient instructed to finish antibiotic course for recent UTI. Discussed delivery team rotation and expectations. 7. Psychosocial Support Patient reports feeling good overall with expected symptoms of shortness of breath at this gestational age. Emotional well-being appears stable.
== END 2025-09-05 11:46 | disposition home or self-care (01) ==
LOC: HODSOBC 10:46
PROVIDERS: Supervising Provider Obstetrics & Gynecology; Visit Provider Obstetrics & Gynecology
DX: O09.893 Supervision of other high risk pregnancies, third trimester (principal); O13.3 Gestational [pregnancy-induced] hypertension without significant proteinuria, third trimester; O23.43 Unspecified infection of urinary tract in pregnancy, third trimester; Z3A.35 35 weeks gestation of pregnancy
CPT/HCPCS: 99214; G0463

== ENCOUNTER 2025-09-14 08:47 | Outpatient (AMB) | payer MEDICAID, SELFPAY ==
[2025-09-14 08:49] VITALS: BP 117/80; PULSE 81; RESP 16; TEMP 36.6; O2SAT 96; BMI 40.1
--- NOTE | 2025-09-14 08:49 | OBCLNT_ITS ---
Vital Signs 09/14/25 08:49 Height 1.6 m Height Method Stated Weight 102.682 kg Weight Measurement Method Standing Scale BMI 40.1 BP 117/80 Blood Pressure Source Automatic Cuff Blood Pressure Location Left Upper Arm Position Sitting Respiration 16 Pulse 81 Pulse Source Monitor Temp 97.8 F Temp Source Oral Pulse Oximetry (%) 96 Oxygen Delivery Method Room Air Allergies/Home Meds Allergies & Medications Allergies No Known Allergies Allergy (Verified 09/14/25 08:57) Medication Reconciliation vitamins with calcium no.72-iron 27 mg-folic acid 1 mg tablet ( Vitamins Plus Low Iron) 1 tab PO QDAY 90 days #90 tabs 02/22/25 [Rx Confirmed 09/14/25] labetalol 200 mg tablet 200 mg PO BID 30 days #60 tabs 07/06/25 [Rx Confirmed 09/14/25] Intake Visit Data Collection New Patient or Established: Established Patient (seen at [facility] within 3 years) Reason for Visit:: CARE/ GBS DUE Seen by Clinical Staff ONLY (RN/MA): No Air Surveillance Operator Required: No Do You Feel Safe at Home: Yes Authorities Contacted: N/A PCP or OBGYN visit in last 3 months: Yes Hx Now: Yes Are you currently on any form of Control: No Pain Present Currently: No Pain Scale Used: Alvarez-Armstrong/Numerical Pain scale:: 0 Smoking Status Smoking Status: Never smoker Immunizations Flu Vaccine in the Last 12 Months: Yes Flu Vaccine Exclusion Criteria: Already Received Questionnaires Covid-19 Vaccine Questionnaire Has patient been vacinated for Covid-19 Have you been vacinated for Covid-19: Yes PHQ-9 PHQ-2 Over the last 2 weeks, how often have you been bothered by any of the following problems? 1. Little interest or pleasure in doing things: not at all 2. Feeling down, depressed, or hopeless: not at all Total score: 0 PHQ-9 3. Trouble falling or staying asleep, or sleeping too much: Not at all 4. Feeling tired or having little energy: Not at all 5. Poor appetite or overeating: Not at all 6. Feeling bad about yourself - or that you are a failure or have let yourself or your family down: Not at all 7. Trouble concentrating on things, such as reading the newspaper or watching television: Not at all 8. Moving or speaking so slowly that other people could have noticed? - Or the opposite - being so fidgety or restless that you have been moving around a lot more than usual: not at all 9. Thoughts that you would be better off or of hurting yourself in some way: Not at all Total score: 0 Source: Developed by Drs. Michael Hanson, Yin Dangelo, Nicholas Reyes and colleagues, with an educational virginia from [employer]. Depression screen completed yes Social History Living Situation History Lives With: Family Housing: House Tobacco History Smoking Status: Never smoker Second Hand Smoke Exposure: No Alcohol History Alcohol Intake: Never Domestic Abuse History Do You Feel Safe at Home: Yes Care OB Visit Log OB Flowsheet Initial Weight: Not Recorded Date -?-?-?-?-?-?-?-?-?-?-?-?- EGA Weight BP Alb Glu CTX Pres Fundal ht FHR Mov Dilation Station Effacement Hx Notes Visit Note 02/22/25 -?-?-?-?-?-?-?-?-?-?-?-?- 8w 0d 88.224 kg 131/82 165 OBI: Patient reports LMP of December 08, 2024, placing her at 9 weeks 2 days gestation with NIMISHA of September 25, 2025. Ultrasound performed today shows a single intrauterine measuring 8 weeks with heart rate of 165 bpm, which is within normal range. No blood clots or complications visualized on ultrasound. 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 Plan: - Continue vitamins - Order comprehensive labs - Follow-up appointment scheduled for ne xt week to review lab results - Provide work restriction note until th e end of next week - Recommend bringing FMLA forms to next appointment for completion - Anticipate lifting work restrictions a t 15-16 weeks gestation, pending clinical status 03/22/25 -?-?-?-?-?-?-?-?-?-?-?-?- 12w 0d 90.775 kg 130/73 at 12 weeks gestation, presents for routine care. Reports headaches and pelvic pain with prolonged walking, resolves with rest. History of 2 recent losses. Bedside ultrasound confirms viable IUP measuring 13 weeks. Genetic screen inadequate due to early gestation. 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 Reports improved N/V, ongoing diarrhea likely viral or food-related, and mild L-sided back pain with urination. NIPT normal, fraction 14%, female fetus. US today reassuring, Plan: RTC in 4w, awaiting MFM US scheduling, disability extension form provided. Symptomatic management continues. 06/14/25 -?-?-?-?-?-?-?-?-?-?-?-?- 24w 0d 99.45 kg 130/82 absent unknown 135 active No contractions, LOF, VB and reports good FM. Denies MARKS, VC, and epigastric pain. - Patient reports: - Some swelling (unspecified location) - Blood pressure readings at home up t o 140/85 - No headaches or nausea - Active movement - Vaginal discharge without spotting - Recent history of loose motions (resol logan) - Blood glucose: - Patient has been self-monitoring - Reports levels between 90-90 mg/dL a fter eating - One instance of 200 mg/dL after cons uming bun noodles - Resolved with walking before bedti me - Denies any other episodes of elevated blood glucose - Order 24-hour urine test - Perform A1c test instead of glucose sc reening drink - Continue monitoring blood pressure at home; if above 160/100, patient to go to hospital - Avoid starchy foods to manage blood gl ucose levels - Extend disability paperwork 07/06/25 -?-?-?-?-?-?-?-?-?-?-?-?- 27w 1d 99.507 kg 147/86 absent unknown 149 active 29-year-old at 27 weeks and 1 day gestation presenting with gestational hypertension, evidenced by elevated blood pressure of 147/86. 24-hour urine protein is elevated at 425, suggesting possible preeclampsia. Patient reports occasional visual disturbances ( seeing spots ) but denies right-sided abdominal pain. Hemoglobin A1c is 5.7, which is within normal range. TSH is 2.2. Patient also notes back pain, likely related to . Multiple skin tags noted on neck, attributed to - related hormonal changes. - Star t labetalol for elevated blood pressure - Follow up in 1 week for blood pressure check - Restrict sodium intake; patient provid ed with low-sodium diet printout - Continue monitoring for preeclampsia s ymptoms - Consider delivery timing based on bloo d pressure control (37-38 weeks if controlled, potentially earlier if difficult to control) - Minimum gestational age for delivery s et at 34 weeks due to lung maturity - Engineering And Development Director referral for skin tag re moval to be considered 07/15/25 -?-?-?-?-?-?-?-?-?-?-?-?- 28w 3d 99.11 kg 121/82 absent unknown 155 active - Mildred Watters presents for a one-week follow-up and blood pressure check after starting labetalol 200mg twice daily for mild range blood pressures. - Blood pressure today is 121/82. - Reports pelvic pain and side pains, patric maradiaga from the baby's position. - Experiencing constipation since eating healthier. - Beans noted to cause more constipati on. - Adhering to prescribed medication katie men. - Following a no-salt diet. - Denies any significant drops in blood pressure. - Continue labetalol 200mg twice daily until delivery, unless blood pressure drops significantly - Monitor blood pressure once daily at t he same time when relaxed - Follow up in 2 weeks - Repeat ultrasound and pre-eclampsia la b panel at 32 weeks - Start bi-weekly monitoring at 32 weeks - Follow up ultrasound in 4 to 6 weeks t o reassess anatomy - Increase intake of soluble fiber (e.g. , apples, berries, kiwi) for constipation - Encourage walking for exercise - Try different positions and use pillow s for leg elevation to alleviate pain 07/26/25 -?-?-?-?-?-?-?-?-?-?-?-?- 30w 0d 99.96 kg 116/76 absent unknown 145 active No contractions, LOF, VB and reports good FM. Patient reports visual disturbances ( li ttle brown ). Denies MARKS, VC, and epigastric pain. - Blood pressure well-controlled on labe talol 200mg BID - Today's BP: 116/76 mmHg - Reports occasional visual disturbances - Describes seeing little brown - Not associated with headaches - Experiences headaches - Patient reports they are normal hea daches - Clinician attributes to beta-jewel side effect - Complains of back pain on one side - Described as feeling like a cramp - Consistent with previous visit - Reports confusion about due date - Clarified as October 04 based on ultrasound dating Plan - Continue labetalol 200mg twice daily f or blood pressure control - Referral for NST (non-stress test) by Dionna - Follow up in 2 weeks - Due for labs at next visit - Patient instructed to come to hospital if concerned or if experiencing severe headache or visual disturbances 08/10/25 -?-?-?-?-?-?-?-?-?-?-?-?- 32w 1d 99.847 kg 111/72 absent unknown 138 active - She is currently taking labetalol 200mg twice daily for gestational hypertension. - She reports experiencing occasional l ittle sparkles and headaches. - She continues to have flank pain that she has been experiencing previously. - She denies right-sided stomach pain. - She denies preeclampsia symptoms. - She is checking her blood pressure twi ce weekly. - She may experience palpitations relate d to the labetalol medication causing reflex tachycardia. - Continue l abetalol 200mg twice daily for gestational hypertension - Obtain CBC, RPR, CMP, and urinalysis f or pre-eclampsia workup - Check liver enzymes, kidney function, and A1c - Plan induction at 37-38 weeks if blood pressure remains stable - Growth scan scheduled next week at [facility] with Dr. Lam - Weekly appointments from now on - Blood pressure monitoring twice weekly - Follow up in one week - Add A1c to test order 09/05/25 -?-?-?-?-?-?-?-?-?-?-?-?- 35w 6d 100.754 kg 116/78 absent unknown 37 128 active - She had an NST appointment today where her RUTH ANN (amniotic fluid index) was found to be 10.4, which represents an improvement from previous measurements. - She reports feeling good overall but e xperiencing shortness of breath. - She describes tightness around the grant es that started on Friday while walking on Halloween. - The tightness occurred despite drink ing water and required her to sit down. - She is currently taking antibiotics fo r a UTI that was diagnosed last week and reports adherence to completing the course. - She received steroid shots to help wit h lung maturation as a precautionary measure. - She reports the baby has been having f requent hiccups. - She acknowledges that she may have bee n getting dehydrated and has increased her water intake. - Induction of labor scheduled for September 20 (at approximately 38 weeks gestation) due to gestational hypertension - Continue current antibiotic course to completion for UTI treatment - Follow-up appointment scheduled for week (final visit before induction) - Continue NST appointments (next schedu led for ) 09/14/25 -?-?-?-?-?-?-?-?-?-?-?-?- 37w 1d 102.682 kg 117/80 absent cephalic 39 14 5 active - She reports pressure sensation in her lower abdomen, which she describes as bad pressure. - She experiences cramps, which she iden tifies as either early contractions or leg cramps. - She notes some swelling but describes it as not being swollen, swollen. - She reports being itchy, possibly rela giovanni to her ring or the metal. - She attends regular ultrasounds with N STs on Mondays and and will continue this and the morning before her induction. - She is taking aspirin as prescribed an d plans to continue until the day before induction. - She denies significant worsening of swelling beyond what she has noticed. - Induction scheduled for 09-20; patient to call hospital number at 8 AM on induction day for room assignment and timing - Continue aspirin until the day before induction - Take magnesium inxx-irm-ivvqhbz, one t ablet at night for cramps - Continue current blood pressure medica tions - Continue scheduled NST appointments on Mondays and , including before induction NIMISHA Calculator Estimated Delivery Date Method Current WG Current Estimate 10/04/25 Ultrasound #1 37w 1d Other Estimates 09/25/25 LMP (Certain) 38w 3d Office Procedures O[facility] Clinic LOC & Office Proc's Nursing/Assessment Patient Status: Established Patient OB Clinic Nursing Assessment: Medication Reconciliation, Update PMH in EMR and Vital Signs OB Clinic Coordination of Care: Complex Care and Chronic Disease 1-5, Consent,records obtained, informed consent, Education Simp Pt/Fam, 1 Ins Authorization, Lab and Imaging orders, Results/Orders obtained and Staff clarify orders Special Needs: Heart tones Miscellaneous Interventions: Culture Specimen Collection Established Patient Charge Established Patient Point Assignment: 165 Established Patient Point Charge: EP Level 5 (160-above) Assessment & Plan Diagnosis / Problem List (1) Supervision of high risk , unspecified, third trimester: Status: Acute (2) Gestational hypertension: Status: Acute Plan Problem List - Gestational hypertension - at 37 weeks and 1 day gestation Assessment 37-week and 1-day patient with gestational hypertension presenting for visit with blood pressure of 117/80 mmHg, which is well-controlled. Patient reports pelvic pressure attributed to weight and round ligament stretching. She experiences cramps described as early contractions or leg cramps, likely related to electrolyte disturbances from increased blood supply to the fetus. Patient notes mild swelling, which is expected secondary to blood pressure medications. She reports itching, possibly related to jewelry. h eart rate is 157 bpm, which is normal. Amniotic fluid measurements have been consistently normal per previous reports. Plan - Induction scheduled for 09-20; patient to call hospital number at 8 AM on induction day for room assignment and timing - Continue aspirin until the day before induction - Take magnesium wbkd-gau-bwacuwu, one tablet at night for cramps - Continue current blood pressure medications - Continue scheduled NST appointments on Mondays and , including before induction 1. Progress Reviewed gestational age at 37 weeks and 1 day, heart rate of 157 (normal), and discussed that growth assessments are not routinely performed after 37 weeks. Patient has gestational hypertension with induction scheduled for 09-20. Blood pressure today 117/80, which is well controlled. 2. Instructed patient to continue monitoring movements through scheduled NSTs on Mondays and , with final NST planned before induction. 3. Testing Patient continuing with routine NST monitoring twice weekly. GBS swab performed during visit. Ultrasound monitoring shows normal amniotic fluid levels. 4. Preeclampsia Precaution Patient has gestational hypertension and is being monitored closely. Blood pressure well controlled today at 117/80. Discussed normal swelling from blood pressure medications and advised to continue aspirin until day before induction. 5. Labor Precautions Discussed that cramps may represent early contractions. Patient experiencing some cramping, likely related to round ligament stretching and electrolyte changes from increased blood supply to baby. 6. Lifestyle and Delivery Preparation Recommended magnesium supplementation for leg cramps (one tablet at night), bananas or liquid IV for electrolyte balance. Induction scheduled for 11-18 with instructions to call at 8 AM for room assignment. Discussed that inductions typically last 24-48 hours and delivery team options. 7. Psychosocial Support Patient appears comfortable with delivery plan and has previous delivery experience. Discussed physician coverage during induction period and patient expressed familiarity with Dr. Gómez who delivered her previous child.
== END 2025-09-14 09:20 | disposition home or self-care (01) ==
LOC: HODSOBC 08:47
PROVIDERS: Supervising Provider Obstetrics & Gynecology; Visit Provider Obstetrics & Gynecology
DX: O09.893 Supervision of other high risk pregnancies, third trimester (principal); O13.3 Gestational [pregnancy-induced] hypertension without significant proteinuria, third trimester; Z3A.37 37 weeks gestation of pregnancy
CPT/HCPCS: 99215; G0463

== ENCOUNTER 2025-09-19 07:46 | Outpatient (RCR) | payer MEDICAID, SELFPAY ==
--- NOTE | 2025-08-04 08:08 | XR_ITS ---
Examination: Biophysical profile, ultrasound Date and time of exam: August 04, 2025, 0806 hours INDICATIONS: Diagnosis gestational hypertension Technique: Multiple transabdominal sonographic images of the pelvis abdomen obtained. Attention is directed to the breathing movement, gross body movement, amniotic fluid volume and tone. Findings: Amniotic fluid index 10.2 cm Total biophysical profile is 8 of 8. breathing movement is 2. Gross body movement is 2. tone is 2. Qualitative amniotic fluid volume is 2 Impression: Biophysical profile is 8 of 8.
[2025-08-04 08:27] VITALS: BP 120/63; PULSE 69; RESP 16; TEMP 36.6
--- NOTE | 2025-08-08 08:35 | XR_ITS ---
Examination: Biophysical profile, ultrasound Date and time of exam: August 08, 2025, 0853 hours INDICATIONS: Diagnosis gestational hypertension Technique: Multiple transabdominal sonographic images of the pelvis abdomen obtained. Attention is directed to the breathing movement, gross body movement, amniotic fluid volume and tone. Findings: Amniotic fluid index 9.8 cm Total biophysical profile is 8 of 8. breathing movement is 2. Gross body movement is 2. tone is 2. Qualitative amniotic fluid volume is 2 Impression: Biophysical profile is 8 of 8.
[2025-08-08 09:15] VITALS: BP 113/69; PULSE 80; RESP 16; TEMP 36.6
--- NOTE | 2025-08-11 08:02 | XR_ITS ---
Examination: Biophysical profile, ultrasound Date and time of exam: August 11, 2025, 0824 hours INDICATIONS: Diagnosis gestational hypertension Technique: Multiple transabdominal sonographic images of the pelvis abdomen obtained. Attention is directed to the breathing movement, gross body movement, amniotic fluid volume and tone. Findings: Amniotic fluid index 11.7 cm Total biophysical profile is 8 of 8. breathing movement is 2. Gross body movement is 2. tone is 2. Qualitative amniotic fluid volume is 2 Impression: Biophysical profile is 8 of 8.
[2025-08-11 08:24] VITALS: BP 122/76; PULSE 71; RESP 20
--- NOTE | 2025-08-15 08:22 | XR_ITS ---
Examination: Biophysical profile, ultrasound Date and time of exam: August 15, 2025, 0831 hours INDICATIONS: Diagnosis gestational hypertension left upper abdomen pain today Technique: Multiple transabdominal sonographic images of the pelvis abdomen obtained. Attention is directed to the breathing movement, gross body movement, amniotic fluid volume and tone. Findings: Amniotic fluid index 11.1 cm Total biophysical profile is 8 of 8. breathing movement is 2. Gross body movement is 2. tone is 2. Qualitative amniotic fluid volume is 2 Impression: Biophysical profile is 8 of 8.
[2025-08-15 09:35] VITALS: BP 124/67; PULSE 85; RESP 20; TEMP 36.7
--- NOTE | 2025-08-18 08:04 | XR_ITS ---
Examination: Biophysical profile, ultrasound Date and time of exam: August 18, 2025, 0809 hours INDICATIONS: Diagnosis gestational hypertension, diagnosis left upper abdominal pain today Technique: Multiple transabdominal sonographic images of the pelvis abdomen obtained. Attention is directed to the breathing movement, gross body movement, amniotic fluid volume and tone. Findings: Amniotic fluid index 10.8 cm Total biophysical profile is 8 of 8. breathing movement is 2. Gross body movement is 2. tone is 2. Qualitative amniotic fluid volume is 2 Impression: Biophysical profile is 8 of 8.
[2025-08-18 08:35] VITALS: BP 129/72; PULSE 78; RESP 16; TEMP 36.7
--- NOTE | 2025-08-22 08:13 | XR_ITS ---
Examination: Biophysical profile, ultrasound Date and time of exam: August 22, 2025, 0815 hours INDICATIONS: Diagnosis gestational hypertension Technique: Multiple transabdominal sonographic images of the pelvis abdomen obtained. Attention is directed to the breathing movement, gross body movement, amniotic fluid volume and tone. Findings: Amniotic fluid index 13.3 cm Total biophysical profile is 8 of 8. breathing movement is 2. Gross body movement is 2. tone is 2. Qualitative amniotic fluid volume is 2 Impression: Biophysical profile is 8 of 8.
[2025-08-22 09:15] VITALS: BP 123/72; PULSE 83; RESP 16; TEMP 36.7
--- NOTE | 2025-08-25 08:11 | XR_ITS ---
Examination: Biophysical profile, ultrasound Date and time of exam: August 25, 2025, 0840 hours INDICATIONS: Diagnosis gestational hypertension Technique: Multiple transabdominal sonographic images of the pelvis abdomen obtained. Attention is directed to the breathing movement, gross body movement, amniotic fluid volume and tone. Findings: Amniotic fluid index 6.9 cm Total biophysical profile is 8 of 8. breathing movement is 2. Gross body movement is 2. tone is 2. Qualitative amniotic fluid volume is 2 Impression: Biophysical profile is 8 of 8.
[2025-08-25 09:20] VITALS: BP 133/69; PULSE 73; RESP 17; TEMP 36.6
--- NOTE | 2025-08-29 08:09 | XR_ITS ---
Examination: Biophysical profile, ultrasound Date and time of exam: August 29, 2025, 0820 hours INDICATIONS: Diagnosis gestational hypertension Technique: Multiple transabdominal sonographic images of the pelvis abdomen obtained. Attention is directed to the breathing movement, gross body movement, amniotic fluid volume and tone. Findings: Amniotic fluid index 4.7 cm Total biophysical profile is 6 of 8. breathing movement is 2. Gross body movement is 2. tone is 2. Qualitative amniotic fluid volume is 0 Impression: Biophysical profile is 6 of 8.
[2025-08-29 08:40] VITALS: BP 104/54; PULSE 99; RESP 16; TEMP 36.7
[2025-08-29] MEDS: BETAMET ACET/BETAMET NA PH (Celestone) 6 MG/ML VIAL 12 MG IM (09:16)
--- NOTE | 2025-09-01 08:16 | XR_ITS ---
Examination: Biophysical profile, ultrasound Date and time of exam: September 01, 2025, 0818 hours INDICATIONS: Diagnosis gestational hypertension Technique: Multiple transabdominal sonographic images of the pelvis abdomen obtained. Attention is directed to the breathing movement, gross body movement, amniotic fluid volume and tone. Findings: Amniotic fluid index 8.6 cm Total biophysical profile is 8 of 8. breathing movement is 2. Gross body movement is 2. tone is 2. Qualitative amniotic fluid volume is 2 Impression: Biophysical profile is 8 of 8.
[2025-09-01 08:54] VITALS: BP 104/57; PULSE 76; RESP 16; TEMP 36.7
--- NOTE | 2025-09-05 08:23 | XR_ITS ---
Examination: Biophysical profile, ultrasound Date and time of exam: 09/05/2025, 8:57 a.m. Technique: Multiple transabdominal sonographic images of the pelvis abdomen obtained. Attention is directed to the breathing movement, gross body movement, amniotic fluid volume and tone. Findings: Single live IUP identified. Total biophysical profile is 8 of 8. breathing movement is 2. Gross body movement is 2. tone is 2. Qualitative amniotic fluid volume is 2 RUTH ANN = 11.5 cm. FHR = 144 bpm. Impression: Biophysical profile is 8 of 8.
[2025-09-05 09:12] VITALS: BP 118/69; PULSE 102; RESP 16; TEMP 36.8
--- NOTE | 2025-09-08 08:10 | XR_ITS ---
Examination: Biophysical profile, ultrasound Date and time of exam: 09/08/2025 at 8:10 a.m. INDICATION: Biweekly NST and BPP due to gestational hypertension COMPARISON: US BPP 09/05/2025 Technique: Multiple transabdominal sonographic images of the pelvis abdomen obtained. Attention is directed to the breathing movement, gross body movement, amniotic fluid volume and tone. Findings: Single live IUP in cephalic presentation Total biophysical profile is 8 of 8. breathing movement is 2. Gross body movement is 2. tone is 2. Qualitative amniotic fluid volume is 2 RUTH ANN: 8.9 cm. FHR: 148 bpm. Impression: Biophysical profile is 8 of 8 as before.
[2025-09-08 08:37] VITALS: BP 117/59; PULSE 99; RESP 16; TEMP 36.7
--- NOTE | 2025-09-12 08:10 | XR_ITS ---
Examination: Biophysical profile, ultrasound Date and time of exam: September 12, 2025, 0820 hours INDICATIONS: Diagnosis gestational hypertension Technique: Multiple transabdominal sonographic images of the pelvis abdomen obtained. Attention is directed to the breathing movement, gross body movement, amniotic fluid volume and tone. Findings: Amniotic fluid index 10.7 cm Total biophysical profile is 8 of 8. breathing movement is 2. Gross body movement is 2. tone is 2. Qualitative amniotic fluid volume is 2 Impression: Biophysical profile is 8 of 8.
[2025-09-12 08:46] VITALS: BP 112/66; PULSE 86; RESP 16; TEMP 36.8
--- NOTE | 2025-09-15 08:21 | XR_ITS ---
Examination: Biophysical profile, ultrasound Date and time of exam: September 15-5081 4 hours INDICATIONS: Diagnosis gestational hypertension Technique: Multiple transabdominal sonographic images of the pelvis abdomen obtained. Attention is directed to the breathing movement, gross body movement, amniotic fluid volume and tone. Findings: Amniotic fluid index 6.4 cm Total biophysical profile is 8 of 8. breathing movement is 2. Gross body movement is 2. tone is 2. Qualitative amniotic fluid volume is 2 Impression: Biophysical profile is 8 of 8.
[2025-09-15 08:49] VITALS: BP 120/58; PULSE 79; RESP 16; TEMP 36.8
--- NOTE | 2025-09-19 08:20 | XR_ITS ---
Examination: Biophysical profile, ultrasound Date and time of exam: September 19, 2025, 0823 hours INDICATIONS: Gestational hypertension diagnosis Technique: Multiple transabdominal sonographic images of the pelvis abdomen obtained. Attention is directed to the breathing movement, gross body movement, amniotic fluid volume and tone. Findings: Amniotic fluid index 10.4 cm Total biophysical profile is 8 of 8. breathing movement is 2. Gross body movement is 2. tone is 2. Qualitative amniotic fluid volume is 2 Impression: Biophysical profile is 8 of 8.
[2025-09-19 08:43] VITALS: BP 113/69; PULSE 104; RESP 16; TEMP 36.8
== END 2025-09-19 23:59 | disposition home or self-care (01) ==
LOC: S4S1 07:46
PROVIDERS: Referring Provider Obstetrics & Gynecology; Visit Provider Obstetrics & Gynecology
DX: O13.3 Gestational [pregnancy-induced] hypertension without significant proteinuria, third trimester (principal); O09.93 Supervision of high risk pregnancy, unspecified, third trimester; O26.23 Pregnancy care for patient with recurrent pregnancy loss, third trimester; Z3A.37 37 weeks gestation of pregnancy
CPT/HCPCS: 59025; 76819; 96372; J0702

== ENCOUNTER 2025-09-20 09:33 | Inpatient (IN) | payer MEDICAID, SELFPAY ==
[2025-09-20] VITALS (10 sets, daily range): BP systolic 98–138; BP diastolic 52–81; PULSE 58–86; RESP 16; TEMP 36.6; BMI 40.7
--- NOTE | 2025-09-20 10:30 | XR_ITS ---
Examination: Complete OB ultrasound greater than 14 weeks Date and time of exam: September 20, 2025, 1217 hours INDICATIONS: Labor induction today. Findings: Viable intrauterine single fetus with single amniotic sac presentation cephalic Cardiac motion 136 bpm Placenta anterior grade 3 Umbilical cord insertion 3 vessel seen Amniotic fluid index 6.8 cm spine maternal left Cervix 2.7 cm Ovaries obscured by bowel gas Nuchal cord x2. Composite estimated gestational age based on BPD, head circumference, abdominal circumference, femur length is 38 weeks 1 day Estimated weight 3405.9 g. Survey of intracranial anatomy, spinal anatomy, abdominal anatomy, four-chamber heart performed with no abnormalities identified. Impression: Viable intrauterine gestation in cephalic presentation Nuchal cord x2.
[2025-09-20] MEDS: RINGERS LACTATED 1000 ML 1,000 ML 100 ML IV ×3 (11:06→21:27)
[2025-09-20 11:19] LABS: Collection Type, Urine Clean Catch
[2025-09-20 11:21] LABS: Basophils # (Auto) 0.0 Thou/mm3 (0.0-0.2); Basophils % (Auto) 0 % (0-2.5); Eosinophils # (Auto) 0.0 Thou/mm3 (0.0-0.5); Eosinophils % (Auto) 0 % (0-10); Hematocrit 38.9 % (36.0-46.0); Hemoglobin 12.6 g/dL (12.0-16.0); Immature Granulocytes Auto 0.06 Thou/mm3 (0.00-0.00); Lymphocytes # (Auto) 1.9 Thou/mm3 (1.0-4.8); Lymphocytes % (Auto) 16 % (10-50); Mean Corpuscular HGB Conc 32.4 g/dl (31.0-37.0); Mean Corpuscular Hemoglobin 28.2 pg (25.0-35.0); Mean Corpuscular Volume 87 fL (80-100); Monocytes # (Auto) 0.6 Thou/mm3 (0.0-0.8); Monocytes % (Auto) 5 % (0-12); Neutrophils # (Auto) 9.5 Thou/mm3 (1.8-7.7); Neutrophils % (Auto) 79 % (37-80); Nucleated Red Blood Cell # 0.00 Thou/mm3 (0.00-0.00); Nucleated Red Blood Cell % 0 /100 WBC (0); Platelet Count 296 Thou/mm3 (140-440); RDW Standard Deviation 43.0 fL (36.4-46.3); Red Blood Count 4.47 Miln/mm3 (4.00-5.20); White Blood Count 12.1 Thou/mm3 (3.6-11.0)
[2025-09-20 11:28] LABS: Bacteria,Urine Rare; Bilirubin,Urine Negative (Negative); Blood,Urine 3+ (Negative); Clarity,Urine Clear (Clear/Hazy); Color,Urine Colorless (Lt Yel-Yel); Glucose, Urine Negative (Negative); Ketones,Urine Negative (Negative); Leukocyte Esterase,Urine Positive (Negative); Nitrite,Urine Negative (Negative); PH,Urine 7.0 (5.0-7.0); Protein,Urine Negative (Neg - Trace); RBC,Urine 1 /hpf (0-3); Specific Gravity,Urine 1.007 (1.001-1.035); Squamous Epithelial Cell,Urine 3 /hpf (0-5); Urobilinogen,Urine Negative mg/dL (0.0-1.0); WBC,Urine 7 /hpf (0-5)
[2025-09-20 11:32] LABS: Creatinine,Random Urine 28 mg/dL (30-125); Protein Total, Random Urine 6 mg/dL (1-14)
[2025-09-20 11:38] LABS: Alanine Aminotransferase 13 U/L (10-49); Albumin, Serum 4.4 gm/dL (3.5-5.0); Albumin/Globulin Ratio 1.9 (1.2-2.2); Alkaline Phosphatase 141 U/L (46-116); Anion Gap 12 (7-16); Aspartate Amino Transferase 16 U/L (0-34); BUN/Creatinine Ratio 10 Ratio (12-20); Bilirubin,Total 0.3 mg/dL (0.3-1.2); Blood Urea Nitrogen 6 mg/dL (9-23); Calcium 9.7 mg/dL (8.3-10.6); Calcium (Corrected) 9.7 mg/dL (8.5-10.1); Carbon Dioxide 22.3 mMol/L (20.0-31.0); Chloride 105 mMol/L (98-107); Creatinine (Component) 0.6 mg/dL (0.6-1.3); Estimated Creatinine Clearance 161.2 mL/min (>60); Globulin 2.3 gm/dL (2.3-3.5); Glucose 94 mg/dL (74-106); Osmolality,Calculated 275 (275-295); Potassium 4.3 mMol/L (3.4-5.1); Sodium 139 mMol/L (136-145); Total Protein 6.7 gm/dL (5.7-8.2); Uric Acid 3.5 mg/dL (3.1-7.8); eGFR > 60 See Note
[2025-09-20 11:56] LABS: INR 0.9 (0.9-1.3); Partial Thromboplastin Time 27.4 Seconds (22.0-36.0); Prothrombin Time 9.5 Seconds (9.0-12.2)
[2025-09-20 11:58] LABS: Syphilis Nonreactive (Nonreactive)
[2025-09-20 12:14] LABS: Fibrinogen 668 mg/dL (175-375)
[2025-09-20] MEDS: LABETALOL 100 MG TABLET 200 MG PO (21:24)
--- NOTE | 2025-09-20 21:36 | PD.LDHP ---
Documentation for date of: 09/20/25 OB Labor/Induct. HPI History of Present Illness Chief complaint: Induction of labor : 3 Para: 0 Term pregnancies: 0 pregnancies: 0 Living children: 0 History of Abortions: Spontaneous and Elective: 2 History of Vaginal deliveries: 0 History of sections: No History of : No NIMISHA: 10/04/25 History of present illness: Mildred is a 30-year-old 3 para 0-0-0-2 0 at 38 weeks who is presenting for induction of labor for gestational hypertension. On presentation patient denies any contractions or leakage of fluid or vaginal bleeding And reports adequate movements. Patient received care at the [facility]. Patient receives labetalol 200 mg twice daily for blood pressure control at home. Labs Labs: Positive: Rubella Titre, Negative: RPR, Hepatitis B, HIV, Chlamydia, Gonorrhea and Group Beta Strep and Unknown: Herpes Type 1, Herpes Type 2 and Covid-19 Review of Systems Review of Systems Systems Reviewed: All systems reviewed, normal except as documented Past Medical History Surgical History SURGICAL: Negative Section Meds Home Medications and Allergies Allergies Allergy/AdvReac Type Severity Reaction Status Date / Time No Known Allergies Allergy Verified 09/20/25 09:46 OB Exam Physical Exam Vital signs: Temp Pulse Resp BP 97.8 F 68 16 132/75 H 09/20/25 10:00 09/20/25 21:24 09/20/25 10:00 09/20/25 21:24 Constitutional Constitutional: no acute distress Routine HEENT Exam Head: Present normocephalic and atraumatic Eye: Present EOMI and PERRL ENT: Present mucous membranes moist Routine Neck Exam Neck: Present supple and trachea midline Routine Cardiovascular Exam Cardiovascular: Present RRR Routine Abdominal Exam Abdominal: Present soft and normoactive bowel sounds Detailed Labor and Delivery Exam Dilation (cm): 1 Effacement (%): 50 Cervix position: mid station: -3 Consistency: firm Presentation: Vertex Baseline heart rate: 135 monitor accelerations: 15x15 monitor decelerations: None watermelon inspector variability: Average (6-10) Routine Extremities Exam Extremities: Present full ROM Routine Skin Exam Skin: Present intact, dry and warm Routine Neurological Exam Neurological: Present alert, oriented X3 and CN II-XII intact Routine Psychiatric Exam Psychiatric: Present normal affect and normal thought process OB Results Labs 09/20/25 10:45 09/20/25 10:45 Labs: Short CBC 09/20/25 Range/Units 10:45 WBC 12.1 H (3.6-11.0) Thou/mm3 Hgb 12.6 (12.0-16.0) g/dL Hct 38.9 (36.0-46.0) % Plt Count 296 (140-440) Thou/mm3 BMP 09/20/25 10:45 Sodium 139 Potassium 4.3 Chloride 105 Carbon Dioxide 22.3 BUN 6 L Creatinine 0.6 Glucose 94 Calcium 9.7 Liver Function 09/20/25 Range/Units 10:45 Total Bilirubin 0.3 (0.3-1.2) mg/dL AST 16 (0-34) U/L ALT 13 (10-49) U/L Alkaline Phosphatase 141 H (46-116) U/L Albumin 4.4 (3.5-5.0) gm/dL Urine 09/20/25 Range/Units 10:40 Urine Color Colorless A (Lt Yel-Yel) Urine Clarity Clear (Clear/Hazy) Urine pH 7.0 (5.0-7.0) Ur Specific [place] 1.007 (1.001-1.035) Urine Protein Negative (Neg - Trace) Urine Glucose (UA) Negative (Negative) OB Assessment & Plan Assessment and Plan (1) Gestational hypertension: Status: Acute (2) care for patient with recurrent loss: Status: Acute (3) Supervision of high risk , unspecified, third trimester: Status: Acute (4) Encounter for induction of labor: Status: Acute Assessment and plan: Admit to inpatient status for induction of labor. IV access, LR at 125 cc/h, type and screen, RPR, CBC, CMP, uric acid, LDH, urine spot protein creatinine ratio Will continue home dose of labetalol Group B streptococcus is negative Pain management as per protocol, epidural whenever desired Cervical ripening with Cervidil, will proceed to oxytocin when Peck score is favorable Continuous maternal monitoring, monitor for signs of preeclampsia Anticipate vaginal delivery
[2025-09-21] VITALS (222 sets, daily range): BP systolic 103–194; BP diastolic 51–168; PULSE 56–112; RESP 16–20; TEMP 36.8–37.2; O2SAT 84–100
[2025-09-21] MEDS: LABETALOL 100 MG TABLET 200 MG PO (08:45)
[2025-09-21] MEDS: RINGERS LACTATED 1000 ML 1,000 ML 100 ML IV ×3 (11:07→13:35)
[2025-09-21] MEDS: SODIUM CHLORIDE 0.9% 500 ML 500 ML 999 ML IV (11:52)
[2025-09-21] MEDS: OXYTOCIN in NS 20 units 20 UNIT/1,000 ML BAG 125 UNIT IV (16:13)
[2025-09-21] MEDS: BENZO/LANO/ALOE (Dermoplast) 60 GM CAN 1 SPRAY TOP (16:14)
--- NOTE | 2025-09-21 16:20 | OBDSUM_ITS ---
Data (Coulter) Data Hx Section: No : 3 Para: 0 Term: 0 : 0 Livin Abortions: Spontaneous & Theraputic: 2 Delivery Data (Coulter) Labor Data Initiation of labor: Induction Induction/Augmentation Agent: Cytotec-PO and Cervidil ROM date: 09/21/25 ROM time: 09:56 Amniotic membrane rupture type: Spontaneous Amniotic fluid description: Clear Delivery Data Onset of labor date: 09/21/25 Onset of labor time: 12:00 Complete dilation date: 09/21/25 Complete dilation time: 14:48 delivery date: 09/21/25 delivery time: 15:44 Gestational age (weeks): 38 Gestational age (days): 1 Placenta delivery date: 09/21/25 Placenta delivery time: 15:48 Stage 1 total time: Labor - Stage 1 Duration 2 hours and 48 minutes Delivered by: Faith Woodard Delivery nurse: JENNIFER Acevedo [place] nurse: Edwina RN Guest Request Runner at delivery: Yes (Paloma) Support person(s) at delivery: FOB, Mother Other staff at delivery: Trang Sampson auto mechanic apprentice Method Delivery method: Normal Vaginal Delivery Presentation: Vertex Anesthesia Type Anesthesia Type: Epidural Placenta Placenta delivery description: Spontaneous Cord blood sent to lab: Yes cord blood collection: Cord Blood Type Episiotomy Episiotomy description: None EBL Estimated blood loss (ml): 150 Umbilical Cord cord description: 3 Vessels Complications Complications: none [place] Data (Coulter) Data order: 1 [place]'s gender: Female Identification band number: [id number] weight (gms): 2830 g Weight (pounds): 6 lbs and 3.8 ozs length: 52 cm Additional Comments Additional comments: viable baby with a good cry / APGARS 3 and 8
[2025-09-21] MEDS: IBUPROFEN TAB 400 MG TABLET 800 MG PO (17:35)
[2025-09-22 04:07] VITALS: BP 111/69; PULSE 84; RESP 18; TEMP 36.7; O2SAT 97
[2025-09-22 08:10] VITALS: BP 138/81; PULSE 104; PULSE 99; RESP 17; TEMP 36.9; O2SAT 98
[2025-09-22] MEDS: LABETALOL 100 MG TABLET 200 MG PO (08:10)
[2025-09-22 08:30] LABS: Basophils # (Auto) 0.0 Thou/mm3 (0.0-0.2); Basophils % (Auto) 0 % (0-2.5); Eosinophils # (Auto) 0.0 Thou/mm3 (0.0-0.5); Eosinophils % (Auto) 0 % (0-10); Hematocrit 31.9 % (36.0-46.0); Hemoglobin 10.6 g/dL (12.0-16.0); Immature Granulocytes Auto 0.05 Thou/mm3 (0.00-0.00); Lymphocytes # (Auto) 2.1 Thou/mm3 (1.0-4.8); Lymphocytes % (Auto) 14 % (10-50); Mean Corpuscular HGB Conc 33.2 g/dl (31.0-37.0); Mean Corpuscular Hemoglobin 29.3 pg (25.0-35.0); Mean Corpuscular Volume 88 fL (80-100); Monocytes # (Auto) 0.7 Thou/mm3 (0.0-0.8); Monocytes % (Auto) 4 % (0-12); Neutrophils # (Auto) 12.3 Thou/mm3 (1.8-7.7); Neutrophils % (Auto) 81 % (37-80); Nucleated Red Blood Cell # 0.00 Thou/mm3 (0.00-0.00); Nucleated Red Blood Cell % 0 /100 WBC (0); Platelet Count 229 Thou/mm3 (140-440); RDW Standard Deviation 44.2 fL (36.4-46.3); Red Blood Count 3.62 Miln/mm3 (4.00-5.20); White Blood Count 15.2 Thou/mm3 (3.6-11.0)
[2025-09-22 12:15] VITALS: BP 120/78; PULSE 100; RESP 17; TEMP 36.8; O2SAT 96
--- NOTE | 2025-09-22 14:26 | PD.LDPPPRG ---
Subjective Subjective Interval history: Patient has no/ complaints Headache no Blurry vision no Chest pain no Palpitations no Shortness of breath no Nausea or vomiting or constipation no Back pain no Dysuria no Dizziness no calf pain no She is voiding spontaneously after catheter removal yes Passing flatus yes Lochia minimal yes Exam Vital Signs Temp Pulse Resp BP Pulse Ox O2 Del Method 98.4 F 99 17 138/81 H 98 Room Air 09/22/25 08:10 09/22/25 08:10 09/22/25 08:10 09/22/25 08:10 09/22/25 08:10 09/22/25 08:10 Narrative Exam alert x3 chest clear CVS RRR NO thyromegaly Uterus is nontender Uterus is firm Just below the umbilicus Bowel sounds present Abdomen soft no hernias noted/no CVAT No calf tenderness Edema mild Objective Labs 09/22/25 07:55 09/20/25 10:45 Labs: Laboratory Results - last 24 hr 09/22/25 07:55 WBC 15.2 H RBC 3.62 L Hgb 10.6 L D Hct 31.9 L MCV 88 MCH 29.3 MCHC 33.2 RDW Std Deviation 44.2 Plt Count 229 D Neut % (Auto) 81 H Lymph % (Auto) 14 [place] % (Auto) 4 Eos % (Auto) 0 Baso % (Auto) 0 Neut # (Auto) 12.3 H Lymph # (Auto) 2.1 [place] # (Auto) 0.7 Eos # (Auto) 0.0 Baso # (Auto) 0.0 Immature Gran # (Auto) 0.05 H Absolute Nucleated RBC 0.00 Immature Gran % 0 Nucleated RBC % 0 Impressions Impression: PPD #1 doing well / IOL for gestational hypertension continue labetalol 200 mgm po BID Assessment & Plan Problem List (1) Gestational hypertension: Problem details: on Labetalol 200 mgm po BID and doing well Status: Acute (2) care for patient with recurrent loss: Problem details: history of 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
--- NOTE | 2025-09-22 17:15 | PD.LDDS ---
DS: Providers Provider Date of admission: 09/20/25 09:33 Primary care physician: Physician No Primary/Family Admitting Provider: Kamar Appiah MD Attending Provider on Admission: Kamar Appiah MD Consults: 09/21/25 16:15 Referral Routine Comment: Attending Provider on DC: Faith Woodard MD Discharging Provider: Faith Woodard MD DS: Diagnosis Discharge Diagnosis (1) Encounter for induction of labor: Status: Acute (2) Gestational hypertension: Status: Acute (3) Vaginal delivery: Status: Acute Problem List Completed Was Problem List Reviewed/Reconciled?: Yes Summary/Hosp Course Brief History: Mildred is a 30-year-old 3 para 0-0-0-2 0 at 38 weeks who is presenting for induction of labor for gestational hypertension. On presentation patient denies any contractions or leakage of fluid or vaginal bleeding And reports adequate movements. Patient received care at the [facility]. Patient receives labetalol 200 mg twice daily for blood pressure control at home. she was induced on 09/20/2025 and had an on 09/21/2025 Peripartum Data Delivery Method: Normal Vaginal Delivery Episiotomy Description: None complications: none [place] 1: Gender: Female Disposition of : home Status at Discharge Cognitive/behavioral status at discharge: normal Functional status at discharge: independent ambulation Overall status at discharge: patient is progressing back to baseline Time Spent with Patient Time attestation: Total time spent providing and/or coordinating discharge services: Time spent: Greater than 30 minutes Exam Vital Signs Temp Pulse Resp BP Pulse Ox O2 Del Method 98.2 F 100 17 120/78 96 Room Air 09/22/25 12:15 09/22/25 12:15 09/22/25 12:15 09/22/25 12:15 09/22/25 12:15 09/22/25 12:15 Narrative Exam alert x3 chest clear CVS RRR NO thyromegaly Uterus is nontender Uterus is firm/ appropriate size Just below the umbilicus Bowel sounds present Abdomen soft no hernias noted/no CVAT No calf tenderness Edema mild Discharge Plan Plan Patient Disposition: HOME (Self Care) Patient condition on transfer: Stable Prescriptions/Referrals Prescriptions/Med Rec: No Action Vitamin Plus Low Iron 27 mg iron- 1 mg tablet 1 tab PO QDAY 90 Days Qty: 90 2RF labetalol 200 mg tablet 200 mg PO BID 30 Days Qty: 60 8RF Referrals: No Primary/Family,Physician [Primary Care Provider] Patient/Caregiver Discharge Instructions Discharge Activity: activity as tolerated Other Discharge Activity Instructions:: continue oral labetalol / see her provider for BP check within 3 to 7 days can take oral ibuprofen 600 mgm po tid prn pain Education Materials: After a Vaginal , Understanding Blues, Nutrition While , Gestational Hypertension Print Language: Turkish Stand Alone Forms: Merly Award Info., Patient Portal Info Letter Discharge Order Discharge Orders: Discharge (Routine); Ordered 09/22/25 Ordered By: Faith Woodard Planned Discharge Date 09/22/25
== END 2025-09-22 18:40 | disposition home or self-care (01) | DRG 560 ==
LOC: S4SX 09-21 16:15 → S4NX 09-21 23:59
PROVIDERS: Obstetrics & Gynecology; Admitting Provider Obstetrics & Gynecology; Visit Provider Obstetrics & Gynecology
DX: O13.4 Gestational [pregnancy-induced] hypertension without significant proteinuria, complicating childbirth (principal); O26.23 Pregnancy care for patient with recurrent pregnancy loss, third trimester; Z37.0 Single live birth; Z3A.38 38 weeks gestation of pregnancy
CPT/HCPCS: 36415; 59409; 76805; 80053; 81001; 82570; 84156; 84550; 85025; 85384; 85610; 85730; 86780; 86850; 86900; 86901; 94762; J2590; J2795; J3010; J7120; J7999; A9270

== ENCOUNTER 2025-09-25 12:47 | Observation (INO) | payer MEDICAID, SELFPAY ==
[2025-09-25] VITALS (9 sets, daily range): BP systolic 132–159; BP diastolic 74–99; PULSE 66–88; RESP 16–18; TEMP 36.5–37.2; O2SAT 97–98; BMI 39.6; BMI 39.2
--- NOTE | 2025-09-25 13:50 | XR_ITS ---
Examination: Transvaginal ultrasound of the pelvis, complete Technique: Transvaginal sonographic images pelvis performed using lawrence scale imaging Exam date and time: September 25, 2025, 1423 hours INDICATIONS: Heavy vaginal bleeding September 20, 2025. FINDINGS: Uterus 15.5 cm endometrial stripe 3.0 cm No intrauterine gestation Right ovary 3.3 cm arterial flow Left ovary obscured by bowel gas IMPRESSION: Findings most consistent with retained products of conception, recommend continued short-term follow-up pelvic sonography.
--- NOTE | 2025-09-25 13:51 | EDNOTE_ITS ---
ED General RME/HPI General Chief complaint: Vaginal Bleeding Stated complaint: DELIVERED BABY 09/21; LARGE BLOOD CLOTS Time Seen by Provider: 09/25/25 13:46 Arrival date/time: 09/25/25 12:47 CC: Passing large vaginal clots HPI patient presents to the ER , stating she is passing 2 clots the size of golf balls, called her BRICK CARRIER who told her to come into the ER for evaluation. Patient denies fever but has a mild headache no shortness of breath painful urination no diarrhea or constipation. Prior to delivery patient was on labetalol for hypertension. Related Data Previous Rx's ?Medication ?Instructions ?Recorded vitamins with calcium 1 tab PO QDAY 90 days # 90 tabs 02/22/25 no.72-iron 27 mg-folic acid 1 mg tablet ( Vitamins Plus Low Iron) labetalol 200 mg tablet 200 mg PO BID 30 days #60 ta bs 07/06/25 Allergies Allergy/AdvReac Type Severity Reaction Status Date / Time No Known Allergies Allergy Verified 09/25/25 12:50 Review of Systems Review of Systems Narrative Review of Systems: GEN: No fever, no chills, no weight loss EYES: No discharge, no visual changes, no pain HEENT: No ear pain, no congestion, no sore throat PULM: No shortness of breath, no cough, no congestion CV: No chest pain, no dyspnea on exertion, no palpitations GI: No nausea, no vomiting, no diarrhea, no pain, no constipation : No frequency, no urgency, no dysuria MUSC/SKEL: No joint pain, no back pain SKIN: No rash PSYCH: No hallucinations, no depression HEME/LYMPH: No easy bleeding or bruising tendencies NEURO: No weakness, no headache Past Medical History Past Medical History NEUROLOGIC: Negative Neurological Disorders CARDIAC: Positive Cardiac Disorders (CHRONIC HTN IN ); Negative Congestive Heart Failure RESPIRATORY: Positive Asthma (LAST USED INHALER 6 MONTHS AGO); Negative Chronic Obstructive Pulmonary Disease (COPD) GASTROINTESTINAL: Negative Gastrointestinal Disorders GENITOURINARY: Negative Genitourinary Disorders or Renal Disease REPRODUCTIVE: Positive Previous Pregnancies (X2 PREVIOUS PREGNANCIES); Negative Genital Herpes, Gonorrhea or Syphilis MUSCULOSKELETAL: Negative Musculoskeletal Disorders ENDOCRINE: Negative Endocrine Disorders, Diabetes Mellitus Type 1 or Diabetes Mellitus Type 2 HEMATOLOGIC: Negative Blood Disorders or Anemia PSYCHO/SOCIAL: Negative Recreational Drug Use, Depression, Anxiety or Attention Deficit Hyperactivity Disorder OTHER HISTORY: Negative Autoimmune Disease, Falls, Blood Transfusions, Blood Transfusion Reaction, Anesthesia Reactions or Cancer Family History FAMILY HISTORY: Negative Family Psychiatric Problems, Family Respiratory Disorders, Family Cardiac Disorders, Family Gastrointestinal Problems, Family Surgery or Family Anesthesia Reaction Surgical History SURGICAL: Negative Section Social History SMOKING STATUS: Never smoker SECOND HAND EXPOSURE: No ED Exam Narrative Physical exam: [General: Obese not in any acute distress Head normocephalic HEENT: Within acceptable limits Neck is supple nontender Chest equal chest rise nontender to palpation Respiratory: Clear to auscultation no wheezes crackles or rubs CV: Rate rhythm is regular no murmurs rubs or clicks Abdomen is distended secondary to body habitus soft nontender no masses positive bowel sounds all 4 quadrants Back: No CVA tenderness no spinous process tenderness from cervical spine thoracic and lumbar spine Skin: Intact no petechiae rash induration ulceration or crepitus Extremities: Moving all extremity against resistance cap refill less than 2 seconds neurosensory intact Neuro: Awake alert oriented x3 [place] coma 15 no focal deficits] Course Course Course Narrative: Ultrasound shows a probable retained products given the patient has an elevated hCG patient's case was presented Dr. Woodard who agrees as the patient is currently bleeding to admit the patient for D&C in the morning. Patient is in agreement with this plan Quality Measures none Orders Category Date Time Status Place in Observation Status Routine Admission 09/25/25 17:47 Active Saline [Insert IV] NOW Care 09/25/25 13:56 Active US transvaginal Stat Exams 09/25/25 13:50 Completed Beta HCG,Quantitative Stat Lab 09/25/25 04:19 Completed CBC Stat Lab 09/25/25 04:19 Completed CMP [Comprehensive Metabolic Panel] Stat Lab 09/25/25 04:19 Completed Urinalysis Stat Lab 09/25/25 14:14 Completed Labetalol Tab [Trandate Tab] Med 09/25/25 13:56 Discontinued 100 mg PO X1 ONE Vital Signs Vital signs: Vital Signs Temperature 98.4 F 09/25/25 13:44 Pulse Rate 88 09/25/25 13:44 Respiratory Rate 18 09/25/25 13:44 Blood Pressure 153/97 H 09/25/25 13:44 Pulse Oximetry (%) 97 09/25/25 13:44 Oxygen Delivery Method Room Air 09/25/25 13:44 Discharge Plan Plan Patient Disposition: Other Care w/in Hosp (SDC/TADEO) Patient condition on transfer: Stable Prescriptions/Referrals Prescriptions/Med Rec: No Action Vitamin Plus Low Iron 27 mg iron- 1 mg tablet 1 tab PO QDAY 90 Days Qty: 90 2RF labetalol 200 mg tablet 200 mg PO BID 30 Days Qty: 60 8RF Referrals: No Primary/Family,Physician [Primary Care Provider] - In 1 week Problem List Clinical Impression: Retained products of conception, Vaginal bleeding Patient/Caregiver Discharge Instructions Print Language: Scottish Stand Alone Forms: Merly Award Info., Patient Portal Info Letter PA/DIAGNOSTICS SALES DEVELOPER Supervising Physician PA/DIAGNOSTICS SALES DEVELOPER Supervising Physician: Emil Hernandez ENP MDM Clinical Information Provided by: patient Medical Records reviewed [facility] Meds/Rx considered, not ordered None Labs/Rad/Tests considered, not ordered None Chronic Illness/Social Conditions Explain: 3 days vaginal delivery Labs Labs: interpreted by me Lab(s) Interpretation(s): CBC shows a male mild leukocytosis of 12.2 thousand. H&H of 10.7 and 32.4 respectively platelets of 280. CMP shows sodium 142 potassium 3.9 chloride of 110, CO2 of 22.6 BUN less than 5 creatinine 0.5 glucose at 91 Quantitative hCG at 194 Urine shows RBCs at 175 no indication of urinary tract infection. Imaging Imaging interpretation: interpreted by me Medication Administration(s) Medication Administration History Discontinued Medications Labetalol HCl (Labetalol 100 Mg Tablet) 100 mg PO X1 ONE Stop: 09/25/25 13:57 Last Admin: 09/25/25 14:46 Dose: 100 mg Documented By: JORDI
[2025-09-25 14:27] LABS: Collection Type, Urine Clean Catch
[2025-09-25 14:28] LABS: Basophils # (Auto) 0.1 Thou/mm3 (0.0-0.2); Basophils % (Auto) 0 % (0-2.5); Eosinophils # (Auto) 0.5 Thou/mm3 (0.0-0.5); Eosinophils % (Auto) 4 % (0-10); Hematocrit 32.4 % (36.0-46.0); Hemoglobin 10.7 g/dL (12.0-16.0); Immature Granulocytes Auto 0.08 Thou/mm3 (0.00-0.00); Lymphocytes # (Auto) 2.3 Thou/mm3 (1.0-4.8); Lymphocytes % (Auto) 19 % (10-50); Mean Corpuscular HGB Conc 33.0 g/dl (31.0-37.0); Mean Corpuscular Hemoglobin 29.2 pg (25.0-35.0); Mean Corpuscular Volume 89 fL (80-100); Monocytes # (Auto) 0.6 Thou/mm3 (0.0-0.8); Monocytes % (Auto) 5 % (0-12); Neutrophils # (Auto) 8.7 Thou/mm3 (1.8-7.7); Neutrophils % (Auto) 72 % (37-80); Nucleated Red Blood Cell # 0.00 Thou/mm3 (0.00-0.00); Nucleated Red Blood Cell % 0 /100 WBC (0); Platelet Count 280 Thou/mm3 (140-440); RDW Standard Deviation 44.9 fL (36.4-46.3); Red Blood Count 3.66 Miln/mm3 (4.00-5.20); White Blood Count 12.2 Thou/mm3 (3.6-11.0)
--- NOTE | 2025-09-25 14:35 | PC.NURSE ---
PATIENT IN US, MEDICATION PULLED AND WILL BE GIVEN WHEN PATIENT RETURNS TO ROOM.
[2025-09-25 14:40] LABS: Bilirubin,Urine Negative (Negative); Blood,Urine 3+ (Negative); Clarity,Urine Clear (Clear/Hazy); Color,Urine Lt-Yellow (Lt Yel-Yel); Glucose, Urine Negative (Negative); Ketones,Urine Negative (Negative); Leukocyte Esterase,Urine Positive (Negative); Nitrite,Urine Negative (Negative); PH,Urine 7.0 (5.0-7.0); Protein,Urine Negative (Neg - Trace); RBC,Urine 175 /hpf (0-3); Specific Gravity,Urine 1.010 (1.001-1.035); Squamous Epithelial Cell,Urine < 1 /hpf (0-5); Urobilinogen,Urine Negative mg/dL (0.0-1.0); WBC,Urine 24 /hpf (0-5)
[2025-09-25] MEDS: LABETALOL 100 MG TABLET PO (14:46)
[2025-09-25 14:59] LABS: Alanine Aminotransferase 31 U/L (10-49); Albumin, Serum 4.1 gm/dL (3.5-5.0); Albumin/Globulin Ratio 1.8 (1.2-2.2); Alkaline Phosphatase 95 U/L (46-116); Anion Gap 9 (7-16); Aspartate Amino Transferase 26 U/L (0-34); BUN/Creatinine Ratio 10 Ratio (12-20); Beta HCG,Quantitative 194 mIU/mL (<5.0); Bilirubin,Total 0.2 mg/dL (0.3-1.2); Blood Urea Nitrogen < 5 mg/dL (9-23); Calcium 9.0 mg/dL (8.3-10.6); Calcium (Corrected) 9.0 mg/dL (8.5-10.1); Carbon Dioxide 22.6 mMol/L (20.0-31.0); Chloride 110 mMol/L (98-107); Creatinine (Component) 0.5 mg/dL (0.6-1.3); Estimated Creatinine Clearance 190.6 mL/min (>60); Globulin 2.3 gm/dL (2.3-3.5); Glucose 91 mg/dL (74-106); Osmolality,Calculated 280 (275-295); Potassium 3.9 mMol/L (3.4-5.1); Sodium 142 mMol/L (136-145); Total Protein 6.4 gm/dL (5.7-8.2); eGFR > 60 See Note
--- NOTE | 2025-09-25 19:24 | PC.NURSE ---
SBAR from Katelyn RN, Pt in bed alert and oriented with no immediate concerns to address ready for report to go up
--- NOTE | 2025-09-25 19:28 | PC.NURSE ---
sbar to Halley RN, Pt sent to floor for admission
[2025-09-25] MEDS: RINGERS LACTATED 1000 ML 1,000 ML 125 ML IV (21:37)
[2025-09-25] MEDS: LABETALOL 100 MG TABLET 200 MG PO (21:38)
--- NOTE | 2025-09-25 22:09 | PD.GYNHP ---
Documentation for date of: 09/25/25 WATER QUALITY CONTROL ENGINEER - HPI History of Present Illness Reason for admission: vaginal bleeding History of present illness: Ms. CHRISTINE is a 30 year old female had a on 09/21/2025 and also is on Labetalol 200 mgm po BId for gestational hypertesion / ED trip for passing a clot vaginally on once daily x 2 days / Hb is stable at 10.6 / US s/o Retained POC , but recommend a repeat Follow up / Patient admitted as observation for possible D&C, medical treatment by oral cytotec and monitoring Patient states her vaginal bleeding has decreased now / repeat CBC ordered and is now Hb is 11 / plan monitor for blood loss and high BP Review of Systems Review of Systems Systems Reviewed: All systems reviewed, normal except as documented Narrative Review of Systems: Patient has no/ complaints Headache no Blurry vision no Chest pain no Palpitations no Shortness of breath no Nausea or vomiting or constipation no Back pain no Dysuria no Dizziness no calf pain no She is voiding spontaneously yes Passing flatus yes and bowel movement yes Lochia like a period Meds Home Medications and Allergies Allergies Allergy/AdvReac Type Severity Reaction Status Date / Time No Known Allergies Allergy Verified 09/25/25 12:50 Exam - WATER QUALITY CONTROL ENGINEER Vital Signs Temp Pulse Resp BP Pulse Ox O2 Del Method 97.7 F 77 18 134/88 H 97 Room Air 09/25/25 20:00 09/25/25 21:38 09/25/25 20:00 09/25/25 21:38 09/25/25 20:00 09/25/25 20:00 Narrative Exam alert x3 chest clear CVS RRR NO thyromegaly Uterus is nontender Uterus is firm/ appropriate size 4 fingers breadth below the umbilicus and firm Bowel sounds present Abdomen soft no hernias noted/no CVAT No calf tenderness Edema mild Pelvic exam deferred WATER QUALITY CONTROL ENGINEER - Results Labs 09/25/25 22:13 09/25/25 04:19 Labs: Short CBC 09/25/25 Range/Units 04:19 WBC 12.2 H (3.6-11.0) Thou/mm3 Hgb 10.7 L (12.0-16.0) g/dL Hct 32.4 L (36.0-46.0) % Plt Count 280 D (140-440) Thou/mm3 BMP 09/25/25 04:19 Sodium 142 Potassium 3.9 Chloride 110 H Carbon Dioxide 22.6 BUN < 5 L Creatinine 0.5 L Glucose 91 Calcium 9.0 Liver Function 09/25/25 Range/Units 04:19 Total Bilirubin 0.2 L (0.3-1.2) mg/dL AST 26 (0-34) U/L ALT 31 (10-49) U/L Alkaline Phosphatase 95 (46-116) U/L Albumin 4.1 (3.5-5.0) gm/dL Urine 09/25/25 Range/Units 14:14 Urine Color Lt-Yellow (Lt Yel-Yel) Urine Clarity Clear (Clear/Hazy) Urine pH 7.0 (5.0-7.0) Ur Specific [place] 1.010 (1.001-1.035) Urine Protein Negative (Neg - Trace) Urine Glucose (UA) Negative (Negative) Imaging and Cardiology US pelvis : Additional comments: Patient: ROBERT CHRISTINE. Record#: [id number] Birthdate: 1995 Age/Sex: 30 / F Location: [facility] Attending Dr: Ordering Physician: Emil Hernandez NP Date of Service: 09/25/25 Procedure(s): US transvaginal Accession Number(s): [id number] cc: Emil Hernandez NP; Torin Nash MD; NO PRIMARY/FAMILY,PHYSICIAN~ Examination: Transvaginal ultrasound of the pelvis, complete Technique: Transvaginal sonographic images pelvis performed using lawrence scale imaging Exam date and time: September 25, 2025, 1423 hours INDICATIONS: Heavy vaginal bleeding September 20, 2025. FINDINGS: Uterus 15.5 cm endometrial stripe 3.0 cm No intrauterine gestation Right ovary 3.3 cm arterial flow Left ovary obscured by bowel gas IMPRESSION: Findings most consistent with retained products of conception, recommend continued short-term follow-up pelvic sonography. Dictated By: Torin Nash MD Signed By: <Electronically signed by Torin Nash MD in OV> 09/25/[id number] DD/ 35 Assessment and Plan Assessment and plan (1) Vaginal bleeding: Status: Acute (2) Retained products of conception: Status: Acute (3) Gestational hypertension: Status: Acute Additional Assessment & Plan Additional Plan: Plan CBC now, oral cytotec 200 mcg po q 6 hours / Hb is stable / plan repeat US tomorrow morning or D&C / Patient prefers repeat US in am , but will decide after getting the repeat CBC result .Patient given the R/B and options od D&C vs medical treatment and follow up Patient was given the reason for proceeding with surgery. She was given the risk benefits and options. She chose to proceed with the surgery. Risks of surgery to include risk of infection bleeding, possible injury to the surrounding organs like the urinary bladder, intestines, ureter, uterus, tubes, ovaries, nerves, blood vessels, possible risk of wound dehiscence later on or hernia development later on in future. However the surgery is done when the benefits outweigh the risks Possible risks of blood transfusion and options were also discussed. All questions answered. repeat Hb is now 11 and bleeding less , will order pelvic US in am and then decide on D&C . Quality Measures Quality Measures none (3) Gestational hypertension Qualifiers: Trimester: third trimester Qualified Code(s): O13.3 - Gestational [-induced] hypertension without significant proteinuria, third trimester
[2025-09-25 22:23] LABS: Basophils # (Auto) 0.0 Thou/mm3 (0.0-0.2); Basophils % (Auto) 0 % (0-2.5); Eosinophils # (Auto) 0.5 Thou/mm3 (0.0-0.5); Eosinophils % (Auto) 4 % (0-10); Hematocrit 33.9 % (36.0-46.0); Hemoglobin 11.0 g/dL (12.0-16.0); Immature Granulocytes Auto 0.08 Thou/mm3 (0.00-0.00); Lymphocytes # (Auto) 2.7 Thou/mm3 (1.0-4.8); Lymphocytes % (Auto) 22 % (10-50); Mean Corpuscular HGB Conc 32.4 g/dl (31.0-37.0); Mean Corpuscular Hemoglobin 28.7 pg (25.0-35.0); Mean Corpuscular Volume 89 fL (80-100); Monocytes # (Auto) 0.7 Thou/mm3 (0.0-0.8); Monocytes % (Auto) 6 % (0-12); Neutrophils # (Auto) 8.2 Thou/mm3 (1.8-7.7); Neutrophils % (Auto) 68 % (37-80); Nucleated Red Blood Cell # 0.00 Thou/mm3 (0.00-0.00); Nucleated Red Blood Cell % 0 /100 WBC (0); Platelet Count 305 Thou/mm3 (140-440); RDW Standard Deviation 45.2 fL (36.4-46.3); Red Blood Count 3.83 Miln/mm3 (4.00-5.20); White Blood Count 12.1 Thou/mm3 (3.6-11.0)
[2025-09-26] VITALS: BP 119/62; PULSE 87; RESP 17; TEMP 37.1; O2SAT 98
[2025-09-26 03:40] LABS: Basophils # (Auto) 0.0 Thou/mm3 (0.0-0.2); Basophils % (Auto) 0 % (0-2.5); Eosinophils # (Auto) 0.4 Thou/mm3 (0.0-0.5); Eosinophils % (Auto) 4 % (0-10); Hematocrit 32.3 % (36.0-46.0); Hemoglobin 10.4 g/dL (12.0-16.0); Immature Granulocytes Auto 0.05 Thou/mm3 (0.00-0.00); Lymphocytes # (Auto) 2.7 Thou/mm3 (1.0-4.8); Lymphocytes % (Auto) 24 % (10-50); Mean Corpuscular HGB Conc 32.2 g/dl (31.0-37.0); Mean Corpuscular Hemoglobin 28.8 pg (25.0-35.0); Mean Corpuscular Volume 90 fL (80-100); Monocytes # (Auto) 0.7 Thou/mm3 (0.0-0.8); Monocytes % (Auto) 7 % (0-12); Neutrophils # (Auto) 7.1 Thou/mm3 (1.8-7.7); Neutrophils % (Auto) 65 % (37-80); Nucleated Red Blood Cell # 0.00 Thou/mm3 (0.00-0.00); Nucleated Red Blood Cell % 0 /100 WBC (0); Platelet Count 280 Thou/mm3 (140-440); RDW Standard Deviation 45.5 fL (36.4-46.3); Red Blood Count 3.61 Miln/mm3 (4.00-5.20); White Blood Count 10.9 Thou/mm3 (3.6-11.0)
[2025-09-26 04:00] VITALS: BP 134/79; PULSE 84; RESP 17; TEMP 36.3; O2SAT 96
--- NOTE | 2025-09-26 04:38 | PC.NURSE ---
Called Dr. Woodard to let her know that pt's HGB is 10.4, HCT 32.3, Pt will continue NPO until after the Pelvic US Per MD request.
[2025-09-26] MEDS: RINGERS LACTATED 1000 ML 1,000 ML 125 ML IV (05:22)
--- NOTE | 2025-09-26 06:49 | PC.NURSE ---
Pt is NPO, DR. Woodard was made aware that mine technician called to let me know that pt needed to drink water before getting the us, Dr. Woodard stated that it was okay to give water to pt.
--- NOTE | 2025-09-26 06:51 | PC.NURSE ---
Okay to give po meds with a sip of water per MD Woodard.
--- NOTE | 2025-09-26 07:00 | XR_ITS ---
Examination: Pelvic ultrasound, transabdominal, complete Technique: Transabdominal ultrasound of the pelvis performed using grayscale imaging Date and time of exam: September 26, 2025, 0616 hours INDICATIONS: Vaginal bleeding today, 3 days ago FINDINGS: Uterus 16.4 cm echogenic material in the lower uterine segment measuring up to 27 mm x 39 mm Uterine fundal endometrium 1.0 cm Right ovary 4.0 cm arterial flow Left ovary 4.0 cm arterial flow No fluid in the cul-de-sac IMPRESSION: Positive for retained products of conception
[2025-09-26 08:00] VITALS: BP 147/75; PULSE 77; RESP 16; TEMP 36.8; O2SAT 95
[2025-09-26 08:05] VITALS: BP 147/75; PULSE 77
[2025-09-26] MEDS: LABETALOL 100 MG TABLET 200 MG PO (08:05)
--- NOTE | 2025-09-26 11:08 | PD.GYNPROG ---
Documentation for date of: 09/26/25 SURGICAL PRODUCT SALES CONSULTANT Subjective Subjective Interval history: Ms. CHRISTINE is a 30 year old female had a on 09/21/2025 and also is on Labetalol 200 mgm po BId for gestational hypertesion / ED trip for passing a clot vaginally on once daily x 2 days / Hb is stable at 10.6 / US s/o Retained POC , but recommend a repeat Follow up / Patient admitted as observation for possible D&C, medical treatment by oral cytotec and monitoring Patient states her vaginal bleeding has decreased now / repeat CBC ordered and is now Hb is 11 / plan monitor for blood loss and high BP. Patient was admitted by Dr. Woodard. Please see history and physical for further details. Hospital course: Patient was admitted overnight for observation. On 09/26/2025 patient is resting comfortably reporting no heavy bleeding and no passing clots. She is having some diarrhea on the Cytotec but no fevers. She feels comfortable being discharged. She is ambulating voiding. She was tolerating a general diet with she was n.p.o. today for a possible D&C. I repeat ultrasound reveals stripe of 1 cm near the fundus and a probable blood clot 2 to 3 cm in her lower uterine segment. I reviewed her ultrasound images myself and there does not appear to be any signs of placental tissue left in her uterine cavity. She has a slightly thickened stripe but she just delivered 09/21/2025. Subjective: patient reports feeling better, patient has no complaints and patient desires discharge Exam Vital Signs Temp Pulse Resp BP Pulse Ox O2 Del Method 98.2 F 77 16 147/75 H 95 Room Air 09/26/25 08:00 09/26/25 08:05 09/26/25 08:00 09/26/25 08:05 09/26/25 08:00 09/26/25 08:00 Constitutional Constitutional: no acute distress Comments: Patient is alert and orient x 3 in no apparent distress Routine Abdominal Exam Abdominal: Present soft (Fundus firm below umbilicus nontender) Additional findings Additional findings: No significant edema or erythema Urinary Catheter Management Cath placed during this visit: no SURGICAL PRODUCT SALES CONSULTANT - PN: Obj Data Labs 09/26/25 03:25 09/25/25 04:19 Labs: Laboratory Results - last 24 hr 09/25/25 09/25/25 09/25/25 04:19 14:14 22:13 WBC 12.2 H 12.1 H RBC 3.66 L 3.83 L Hgb 10.7 L 11.0 L Hct 32.4 L 33.9 L MCV 89 89 MCH 29.2 28.7 MCHC 33.0 32.4 RDW Std Deviation 44.9 45.2 Plt Count 280 D 305 Neut % (Auto) 72 68 Lymph % (Auto) 19 22 [place] % (Auto) 5 6 Eos % (Auto) 4 4 Baso % (Auto) 0 0 Neut # (Auto) 8.7 H 8.2 H Lymph # (Auto) 2.3 2.7 [place] # (Auto) 0.6 0.7 Eos # (Auto) 0.5 0.5 Baso # (Auto) 0.1 0.0 Immature Gran # (Auto) 0.08 H 0.08 H Absolute Nucleated RBC 0.00 0.00 Immature Gran % 1 H 1 H Nucleated RBC % 0 0 Sodium 142 Potassium 3.9 Chloride 110 H Carbon Dioxide 22.6 Anion Gap 9 BUN < 5 L Creatinine 0.5 L Estim Creat Clear Calc 190.6 eGFR > 60 BUN/Creatinine Ratio 10 L Glucose 91 Calculated Osmolality 280 Calcium 9.0 Corrected Calcium 9.0 Total Bilirubin 0.2 L AST 26 ALT 31 Alkaline Phosphatase 95 Total Protein 6.4 Albumin 4.1 Globulin 2.3 Albumin/Globulin Ratio 1.8 Beta HCG, Quant 194 Ur Collection Type Clean Catch Urine Color Lt-Yellow Urine Clarity Clear Urine pH 7.0 Ur Specific [place] 1.010 Urine Protein Negative Urine Glucose (UA) Negative Urine Ketones Negative Urine Blood 3+ A Urine Nitrite Negative Urine Bilirubin Negative Urine Urobilinogen (Auto) Negative Ur Leukocyte Esterase Positive Urine RBC 175 H Urine WBC 24 H Ur Squamous Epith Cells < 1 Urine Bacteria None 09/26/25 03:25 WBC 10.9 RBC 3.61 L Hgb 10.4 L Hct 32.3 L MCV 90 MCH 28.8 MCHC 32.2 RDW Std Deviation 45.5 Plt Count 280 Neut % (Auto) 65 Lymph % (Auto) 24 [place] % (Auto) 7 Eos % (Auto) 4 Baso % (Auto) 0 Neut # (Auto) 7.1 Lymph # (Auto) 2.7 [place] # (Auto) 0.7 Eos # (Auto) 0.4 Baso # (Auto) 0.0 Immature Gran # (Auto) 0.05 H Absolute Nucleated RBC 0.00 Immature Gran % 1 H Nucleated RBC % 0 Sodium Potassium Chloride Carbon Dioxide Anion Gap BUN Creatinine Estim Creat Clear Calc eGFR BUN/Creatinine Ratio Glucose Calculated Osmolality Calcium Corrected Calcium Total Bilirubin AST ALT Alkaline Phosphatase Total Protein Albumin Globulin Albumin/Globulin Ratio Beta HCG, Quant Ur Collection Type Urine Color Urine Clarity Urine pH Ur Specific [place] Urine Protein Urine Glucose (UA) Urine Ketones Urine Blood Urine Nitrite Urine Bilirubin Urine Urobilinogen (Auto) Ur Leukocyte Esterase Urine RBC Urine WBC Ur Squamous Epith Cells Urine Bacteria SURGICAL PRODUCT SALES CONSULTANT - A/P Assessment and plan (1) Vaginal bleeding: Problem details: Patient admitted day #4 after passing a few blood clots at home for observation. Her hemoglobin has been stable at 10.4. Ultrasound is unremarkable. I will discharge home day #5 in stable condition. Status: Acute (2) Gestational hypertension: Problem details: on Labetalol 200 mgm po BID and doing well Status: Acute (3) care following vaginal delivery: Problem details: Discharge instructions given including pelvic rest x 6 weeks Status: Acute Postoperative Procedures: Procedures Operation Date: 09/26/25 06:00 <No data on this case meets the specified criteria> Time Spent With Patient Time: Total time spent is greater than 50% in coordination of care (as documented) at patient's floor/unit and/or counseling patient: Time with patient: less than 15 minutes
--- NOTE | 2025-09-26 11:13 | ESDS_ITS ---
Planned Discharge Date 09/26/25 DS: Providers Provider Date of admission: 09/25/25 17:58 Primary care physician: Physician No Primary/Family Admitting Provider: Faith Woodard MD Attending Provider on Admission: Faith Woodard MD Attending Provider on DC: Xochitl G[facility]z MD ([facility]) Discharging Provider: Xochitl G[facility]mez MD ([facility]) Anticipated date of discharge: 09/26/25 DS: Diagnosis Discharge Diagnosis (1) care following vaginal delivery: Status: Acute (2) Vaginal bleeding: Status: Acute Assessment & Plan: Patient admitted after passing some clots at home for evaluation for possible surgical evacuation of clots versus products of conception. Patient's hemoglobin was stable her bleeding subsided her ultrasound was not suggestive of large amounts retained products. Will discharge home in stable condition. (3) Gestational hypertension: Status: Acute Assessment & Plan: Lovenox and blood pressure controlled. Problem List Completed Was Problem List Reviewed/Reconciled?: Yes Hospital Course Hospital Course Hospital course: Ms. CHRISTINE is a 30 year old female had a on 09/21/2025 and also is on Labetalol 200 mgm po BId for gestational hypertesion / ED trip for passing a clot vaginally on once daily x 2 days / Hb is stable at 10.6 / US s/o Retained POC , but recommend a repeat Follow up / Patient admitted as observation for possible D&C, medical treatment by oral cytotec and monitoring Patient states her vaginal bleeding has decreased now / repeat CBC ordered and is now Hb is 11 / plan monitor for blood loss and high BP. Patient was admitted by Dr. Woodard. Please see history and physical for further details. Hospital course: Patient was admitted overnight for observation. On 09/26/2025 patient is resting comfortably reporting no heavy bleeding and no passing clots. She is having some diarrhea on the Cytotec but no fevers. She feels comfortable being discharged. She is ambulating voiding. She was tolerating a general diet with she was n.p.o. today for a possible D&C. I repeat ultrasound reveals stripe of 1 cm near the fundus and a probable blood clot 2 to 3 cm in her lower uterine segment. I reviewed her ultrasound images myself and there does not appear to be any signs of placental tissue left in her uterine cavity. She has a slightly thickened stripe but she just delivered 09/21/2025. Patient was discharged home in stable condition 09/26/2025 on post day #5. Status at Discharge Functional status at discharge: independent ambulation Overall status at discharge: patient is progressing back to baseline Time Spent with Patient Time attestation: Total time spent providing and/or coordinating discharge services: Time spent: Less than 30 minutes Exam - UROLOGY SURGEON Vital Signs Temp Pulse Resp BP Pulse Ox O2 Del Method 98.2 F 77 16 147/75 H 95 Room Air 09/26/25 08:00 09/26/25 08:05 09/26/25 08:00 09/26/25 08:05 09/26/25 08:00 09/26/25 08:00 Constitutional Constitutional: no acute distress Comments: Patient is alert and orient x 3 in no apparent distress Routine Abdominal Exam Abdominal: Present soft Comments: Fundus is firm below umbilicus nontender Routine Extremities Exam Comments: No cyanosis clubbing or edema Discharge Plan Plan Patient Disposition: HOME (Self Care) Disposition Comment: Stable Patient condition on transfer: Stable Prescriptions/Referrals Prescriptions/Med Rec: New labetalol 100 mg Tablet 200 mg PO BID Qty: 30 0RF misoprostol [Cytotec] 100 mcg tablet 100 mcg PO BID Qty: 6 0RF ibuprofen 800 mg tablet 800 mg PO Q8H PRN (Reason: pain) Qty: 30 0RF Discontinued labetalol 200 mg tablet 200 mg PO BID 30 Days Qty: 60 8RF Referrals: No Primary/Family,Physician [Primary Care Provider] Patient/Caregiver Discharge Instructions Discharge Activity: activity as tolerated Other Discharge Activity Instructions:: Pelvic rest x 6 weeks Other Discharge Diet Instructions: General diet as tolerated Education Materials: After a Vaginal , Breastfeed Holds, Breast Care After , The Benefits of Breastmilk, : Caring for Yourself Print Language: Indonesian Activity Restrictions/Additional Instructions: No intercourse tampons douching x 6 weeks. Follow-up in clinic in 2 weeks for a check. Come back to the ER for heavy vaginal bleeding passing clots and bleeding through her your close or severe depression or severe headaches or elevated blood pressures in the 160s over 100s. Stand Alone Forms: [facility] Award Info., Patient Portal Info Letter, Work/Release Restrictions Discharge Order Discharge Orders: Discharge (Routine); Ordered 09/26/25 Ordered By: Xochitl G[facility]mez ([facility]) (3) Gestational hypertension Qualifiers: Trimester: third trimester Qualified Code(s): O13.3 - Gestational [- induced] hypertension without significant proteinuria, third trimester
[2025-09-26 11:40] VITALS: BP 138/67; PULSE 62; RESP 16; TEMP 36.4; O2SAT 98
== END 2025-09-26 12:39 | disposition home or self-care (01) ==
LOC: SERX 18:00 → SERHOLD 18:00 → S3SX 19:35
PROVIDERS: Registered Nurse General Practice; Admitting Provider Obstetrics & Gynecology; Emergency Provider Emergency Medicine; Visit Provider Obstetrics & Gynecology
DX: O72.1 Other immediate postpartum hemorrhage (principal); O13.5 Gestational [pregnancy-induced] hypertension without significant proteinuria, complicating the puerperium
CPT/HCPCS: 36415; 76830; 76856; 80053; 81001; 84702; 85025; 87081; 99283; G0378; J7120; S0191; A9270

== ENCOUNTER 2025-10-18 11:17 | Outpatient (AMB) | payer MEDICAID, SELFPAY ==
[2025-10-18 11:25] VITALS: BP 109/71; PULSE 83; RESP 18; TEMP 36.4; O2SAT 97; BMI 37.5
--- NOTE | 2025-10-18 11:25 | AMBOBPPN_ITS ---
Vital Signs 10/18/25 11:25 Height 1.6 m Height Method Stated Weight 96.275 kg Weight Measurement Method Standing Scale BMI 37.5 BP 109/71 Blood Pressure Source Automatic Cuff Blood Pressure Location Right Upper Arm Position Sitting Respiration 18 Pulse 83 Pulse Source Monitor Temp 97.6 F Temp Source Temporal Artery Scan Pulse Oximetry (%) 97 Oxygen Delivery Method Room Air Allergies/Home Meds Allergies & Medications Allergies No Known Allergies Allergy (Verified 10/18/25 11:26) Medication Reconciliation ibuprofen 800 mg tablet 800 mg PO Q8H PRN pain #30 tabs 09/26/25 [Rx Confirmed 10/18/25] labetalol 100 mg tablet 200 mg (2 x 100 mg) PO BID #30 tabs 09/26/25 [Rx Confirmed 10/18/25] misoprostol 100 mcg tablet (Cytotec) 100 mcg PO BID #6 tabs 09/26/25 [Rx Confirmed 10/18/25] cholecalciferol (vitamin D3) 250 mcg (10,000 unit) capsule 250 mcg PO QDAY 30 days #30 caps 10/18/25 [Rx] multivitamin (One Daily Multivitamin tablet) 1 tab PO QDAY 90 days #90 tabs 10/18/25 [Rx] Intake Visit Data Collection New Patient or Established: Established Patient (seen at [facility] within 3 years) Reason for Visit:: Seen by Clinical Staff ONLY (RN/MA): No Dispatch Machine Runner Required: No Do You Feel Safe at Home: Yes Authorities Contacted: N/A PCP or OBGYN visit in last 3 months: Yes Date of Last PCP or OBGYN visit: 09/14/25 Hx Now: No Are you currently on any form of Control: No Pain Present Currently: No Pain Scale Used: Alvarez-Armstrong/Numerical Pain scale:: 0 Smoking Status Smoking Status: Never smoker Immunizations Flu Vaccine in the Last 12 Months: No Flu Vaccine Exclusion Criteria: No Exclusion Criteria SECURITY COORDINATOR: Past Medical History Past Medical History: No Hx Neurological Disorders, Yes Hx Cardiac Disorders, No Hx Cancer, No Hx Blood Disorders, No Hx Anemia, No Hx Gastrointestinal Disorders, No Hx Renal Disease, No Hx Diabetes Mellitus Type 1 and No Hx Diabetes Mellitus Type 2 Questionnaires Covid-19 Vaccine Questionnaire Has patient been vacinated for Covid-19 Have you been vacinated for Covid-19: No Social History Living Situation History Marital Status: Lives With: Family Housing: House Tobacco History Smoking Status: Never smoker Second Hand Smoke Exposure: No Alcohol History Alcohol Intake: Never Alcohol Intake Frequency: holidays/special occasions only Domestic Abuse History Do You Feel Safe at Home: Yes EPDS - PP Depression Screening [place] Pospartum Depression Screen I have been able to laugh and see the funny side of things: (0) As much as I always could I have looked forward with enjoyment to things: (0) As much as I ever did I have blamed myself unnecessarily when things went wrong: (0) No, never I have been anxious or worried for no good reason: (0) No, not at all I have felt scared or panicky for no very good reason: (0) No, not at all Things have been getting on top of me: (0) No, I have been coping as well as ever I have been so unhappy that I have had difficulty sleeping: (0) No, not at all I have felt sad or miserable: (0) No, not at all I have been so unhappy that I have been crying: (0) No, never The thought of harming myself has occurred to me: (0) Never EPDS completed yes HPI Interval History: Mildred Watters presents with a visit following spontaneous vaginal delivery on September 21, 2025. She was readmitted to the hospital on September 26, 2025 (5 days ) due to heavy bleeding with clots larger than a golf ball that started on September 25. She reports the bleeding began as discharge and progressed to significant clotting, prompting her to seek emergency care. During readmission, she was kept NPO and treated with misoprostol for suspected retained products of conception, though imaging suggested blood clots rather than retained placental tissue. She was subse quently discharged in stable condition without additional bleeding. The patient describes a complicated delivery experience with multiple concerns about her intrapartum care. She reports being admitted for induction but experiencing delays due to inconsistent heart rate patterns. The induction process was prolonged, with misoprostol doses spaced 6-7 hours apart instead of the standard 4-hour intervals due to heart rate concerns. Her epidural placement was complicated, requiring removal and replacement with a longer catheter, taking approximately one hour to complete. She progressed rapidly after epidural placement, reaching 5-6 centimeters dilation within 30 minutes, but experienced a concerning delay in care when the covering nurse refused to check her cervix during the primary nurse's lunch break. The patient was instructed not to push despite feeling significant pressure and the urge to deliver. When her primary nurse returned, examination revealed the baby's head was , and delivery occurred with one push. The initially appeared purple and required respiratory support for approximately 4 minutes before establishing spontaneous breathing. , the baby developed jaundice requiring extended hospitalization until Friday. The baby is currently doing well, feeding appropriately, and has been established with [facility]. The patient sought care at an urgent care facility in [place] for suspected urinary tract infection symptoms, likely related to Smith catheter placement during epidural anesthesia. She was treated with antibiotics despite negative UTI testing and temporarily discontinued for 2 days due to concerns about medication safety, though she has since resumed. She reports continued mild urinary symptoms but overall feels well. Both mother and baby experienced illness approximately 2 weeks ago but have recovered. She continues taking blood pressure medication as prescribed and is currently in combination with formula feeding. She is a 30-year-old female with an obstetric history of G1 T1 L1. She delivered September 21, 2025 at term via spontaneous vaginal delivery. The patient lives with her mother and plans to return to school. ROS: Positive for urinary symptoms concerning for UTI, describes feeling weird in urinary area following catheter placement during delivery. Otherwise negative except as stated above. Diagnostic Test Results and Labs: - Ultrasound (09-26-2025): No retained placental tissue identified, findings consistent with blood clots rather than retained products of conception Office Procedures [facility] LOC & Office Proc's Nursing/Assessment Patient Status: Established Patient [facility] Nursing Assessment: Medication Reconciliation, Update PMH in EMR and Vital Signs [facility] Coordination of Care: Complex Care and Chronic Disease 1-5, Education Complex Pt/Fam, Consent,records obtained, informed consent, Lab and Imaging orders, Results/Orders obtained and Staff clarify orders Established Patient Charge Established Patient Point Assignment: 110 Established Patient Point Charge: EP Level 3 (80-115) Antepartum Initial or Follow-up Antepartum Initial Visit: Yes Assessment & Plan Diagnosis / Problem List (1) care following vaginal delivery: Status: Acute Plan Delayed Hemorrhage: - Patient experienced delayed hemorrhage on September 25, 2025 (4 days ) with bleeding and clots larger than a golf ball. - Readmitted and treated with misoprostol. - Ultrasound imaging showed blood clots rather than retained placental tissue. Plan: - No additional intervention needed at this time. - Patient educated about delayed hemorrhage mechanism. Hypertension: - Currently on antihypertensive medication for hypertension management. Plan: - Continue current blood pressure medication for 6 weeks total. - Discontinue medication 24 hours before next appointment to assess baseline blood pressure without medication. Urinary Symptoms: - Patient experienced urinary symptoms concerning for UTI, likely related to Smith catheter placement during epidural. - Evaluated at urgent care, urine culture was negative but treated with antibiotics. - Symptoms persist but are improving. Plan: - Recommend cranberry supplement (cranactin) [id number]. - Avoid AZO as it is not safe during . - No further intervention needed at this time. Nutritional Support: - Patient is and requires appropriate nutritional supplementation during period. Plan: - Prescribe multivitamin. - Prescribe vitamin D supplement. Experience Concerns: - Patient expressed concerns about delivery experience including delayed patricia ction medication administration, inadequate nursing care during active labor, and communication issues regarding 's initial respiratory status. Plan: - Patient advised to contact hospital patient experience office to provide feedback about delivery experience. - Medical records available through [facility] Medical Records office on [facility] for $5 fee if patient desires documentation. - 6-week visit to be scheduled for November.
== END 2025-10-18 11:51 | disposition home or self-care (01) ==
LOC: HODSOBC 11:17
PROVIDERS: Supervising Provider Obstetrics & Gynecology; Visit Provider Obstetrics & Gynecology
DX: Z39.2 Encounter for routine postpartum follow-up (principal); O16.5 Unspecified maternal hypertension, complicating the puerperium; R39.9 Unspecified symptoms and signs involving the genitourinary system; O90.89 Other complications of the puerperium, not elsewhere classified
CPT/HCPCS: 59425; 99213; G0463